=== PATIENT | female | born 1965 | race Caucasian/White ===

== ENCOUNTER 2023-11-12 14:34 | Outpatient (AMB) | payer OTHER, SELFPAY ==
--- NOTE | 2023-11-12 15:19 | A.OFFPC_ITS ---
Vital Signs 11/12/23 15:24 Height 5 ft 6.3 in Weight 200 lb 6 oz BMI 32.0 BP 108/60 Blood Pressure Location Lt brachial Position Sitting Respiration 12 Pulse 89 Pulse Source Pulse Oximeter Temp 98.1 F Temp Source Oral Pulse Oximetry (%) 91 L Oxygen Delivery Method Room Air Intake Visit Reasons: transfer from [facility] Intake Note: New patient visit Allergies rofecoxib [From Vioxx] Allergy (Unknown, Verified 11/12/23 15:20) Unknown eggs Allergy (Unknown, Uncoded 11/12/23 15:20) Unknown viox Allergy (Unknown, Uncoded 11/12/23 15:20) Unknown Tobacco use date assessed: 11/12/23 Dental Screening Dental Screen Date: 11/12/23 Did you have a dental visit in the last 12 months?: No Did you have a dental problem in the last 6 months where you did not have access to dental care?: No Was dental information given to patient?: Patient declined HPI HPI Comments History of Present Illness Details 58 y/o female with a past medical histor y of CAD s/p PCI, depression anxiety, obesity, htn, hyperlipidemia, chronic neck and back pain, DDD presenting for follow up CAD: stable on current medications. bp well controlled. no chest pain or exertional dyspnea. Continue weight loss with mounjaro. Depression/anxiety-stable with interval flares. Her job is a huge source of stress. Sometimes overwheming due for mammogram, colonoscopy ROS CONSTITUTIONAL: Denies weight loss, fever and chills. HEENT: Denies changes in vision and hearing. RESPIRATORY: Denies SOB and cough. CV: Denies palpitations and CP GI: Denies abdominal pain, nausea, vomiting and diarrhea. : Denies dysuria and urinary frequency. MSK: Denies new myalgia and joint pain. SKIN: Denies rash and pruritus. NEUROLOGICAL: Denies headache PSYCHIATRIC: Denies recent changes in mood. PHYSICAL EXAM: GENERAL: Alert and oriented x 3. NAD EYES: EOMI. Anicteric. HENT: Moist mucous membranes. No scleral icterus. No cervical lymphadenopathy. LUNGS: Clear to auscultation bilaterally. CARDIOVASCULAR: Regular rate and rhythm. No murmur. No JVD. ABDOMEN: Soft, non-tender +bs EXTREMITIES: No edema. Non-tender. SKIN: No rashes or lesions. Warm. NEUROLOGIC: No focal neurological deficits. CN II-XII grossly intact PSYCHIATRIC: Cooperative. Appropriate mood and affect [facility] Social History Housing: House Patient Tobacco Use Status: Current everyday Tobacco user Cigarette Packs Per Day: 0.5 Years Smoked: 40 e-Cigarette/Vaping Use: Never Used Second Hand Smoke Exposure: No service: Yes Current occupational status: employed Current occupation: [employer] Current occupational exposures/hazards: No Cognitive needs: No Hearing needs: No Vision needs: Yes (glasses) Questionnaire PHQ-9 Over the last 2 weeks, how often have you been bothered by any of the following problems? 1. Little interest or pleasure in doing things: not at all 2. Feeling down, depressed, or hopeless: several days 3. Trouble falling or staying asleep, or sleeping too much: several days 4. Feeling tired or having little energy: several days 5. Poor appetite or overeating: several days 6. Feeling bad about yourself - or that you are a failure or have let yourself or your family down: not at all 7. Trouble concentrating on things, such as reading the newspaper or watching television: not at all 8. Moving or speaking so slowly that other people could have noticed. Or the opposite - being so fidgety or restless that you have been moving around a lot more than usual: several days 9. Thoughts that you would be better off or of hurting yourself in some way: not at all Total score: 5 Depression Screening Interpretation: Positive Depression Screening Done: Yes 62929 - PHQ-9 Billing: Yes Source: Developed by Drs. Anant Murray, Jhoana Locke, Sanket Johnson and colleagues, with an educational jyotsna from [employer]. Thrive Questionnaire Date Thrive assessed: 11/12/23 I am a: Patient What is your living situation today?: I have a steady place to live Within the past 12 months, did the food you bought not last and you didn't have the money to get more?: Never true Within the past 12 months, did you worry whether your food would run out before you got money to buy more?: Never true Do you have trouble paying for medicines?: No Do you have trouble getting transportation to medical appointments?: No Do you have trouble paying your heating and electricity bill?: No Do you have trouble taking care of your child, family member or friend?: No Do you have trouble with day-to-day activities such as bathing, preparing meals, shopping, managing finances, etc.?: No Are you currently unemployed and looking for a job?: No Are you interested in more education?: No Please select the resources that you would like help with: None Currently or been in a relationship where the following occur: no concerns reported THRIVE Score: 0 AUDIT C Alcohol Use Questionnaire (AUDIT-C) 1. How often do you have a drink containing alcohol?: Never (hasnt drank in over 2 years) 3. How often do you have six or more drinks on one occasion?: Never Total Score: 0 LILIAN-7 AMB Questionnaire LILIAN-7 Date LILIAN - 7 assessed: 11/12/23 Feeling nervous, anxious, or on edge: 1 = Several days Not being able to stop or control worryin = Several days Worrying too much about different things: 1 = Several days Trouble relaxin = Several days Being so restless that it is hard to sit still: 1 = Several days Becoming easily annoyed or irritable: 1 = Several days Feeling afraid as if something awful might happen: 0 = Not at all Total LILIAN-7 score (0-4 normal; 5-9 mild; 10-14 moderate; 15-21 severe): 6 Source: Developed by Drs. Anant Murray, Jhoana Locke, Sanket Johnson and colleagues, with an educational jyotsna from [employer]. LILIAN-7 Assessment Billing LILIAN-7 Assessment Tool: LILIAN-7 Assessment 79729 Physical exam (Primary Care) Vital Signs: Last Vital Signs Temp 98.1 F 11/12/23 15:24 Pulse 89 11/12/23 15:24 Resp 12 11/12/23 15:24 BP 108/60 11/12/23 15:24 Pulse Ox 91 L 11/12/23 15:24 Oxygen Delivery Method Room Air 11/12/23 15:24 BMI result Body Mass Index 32.0 Tobacco/Smoking Status: Tobacco use Status Tobacco use date assessed 11/12/23 11/12/23 15:23 Patient Tobacco Use Status Current everyday Tobacco 11/12/23 15:23 e-Cigarette/Vaping Use Never Used 11/12/23 15:23 PHQ-9: PHQ-9 Score PHQ-9: Total score 5 11/12/23 16:13 Depression Screening Interpretation: Positive Thrive Assessment: Date of Thrive Assessment Date Thrive assessed 11/12/23 11/12/23 16:13 Currently or been in a relationship where the following occur: no concerns reported Assessment and Plan Assessment & Plan (1) CAD (coronary artery disease): Code(s): I25.10 - Atherosclerotic heart disease of nikolski coronary artery without angina pectoris Qualifiers: Coronary Disease-Associated Artery/Lesion type: [place] artery [place] vs. transplanted heart: n[place]ki heart Associated angina: without angina Qualified Code(s): I25.10 - Atherosclerotic heart disease of [place] coronary artery without angina pectoris Plan: stable. continue current medications. continue bp management, weight control (2) MDD (major depressive disorder), recurrent, in partial remission: Code(s): F33.41 - Major depressive disorder, recurrent, in partial remission Plan: stable recurrent. continue current medications (3) Obesity: Code(s): E66.9 - Obesity, unspecified Qualifiers: Obesity type: due to excess calories Obesity classification: adult class 1 (BMI 30 - 34.9) Serious obesity comorbidity presence: with serious comorbidity Body mass index: BMI 32.0-32.9 Qualified Code(s): E66.09 - Other obesity due to excess calories; Z68.32 - Body mass index [BMI] 32.0-32.9, adult (4) DDD (degenerative disc disease), lumbosacral: Code(s): M51.37 - Other intervertebral disc degeneration, lumbosacral region Orders: Orders MM screening mammo BI 11/12/23 Z12.31 - Encounter for screening mammogram for malignant neoplasm of breast Medications: New atorvastatin 40 mg PO DAILY 30 days 30 tabs 11RF loratadine 10 mg PO DAILY 30 tabs 11RF omeprazole 20 mg PO DAILY 30 caps 11RF amitriptyline 100 mg PO BEDTIME 30 tabs 11RF linaclotide (Linzess) 72 mcg PO QAM 30 caps 11RF losartan 25 mg PO DAILY 30 tabs 11RF amitriptyline 100 mg PO BEDTIME 30 tabs 0RF duloxetine 60 mg PO DAILY 30 days 30 caps 11RF amitriptyline 100 mg PO BEDTIME 30 tabs 0RF linaclotide (Linzess) 72 mcg PO QAM 30 caps 11RF atorvastatin 40 mg PO DAILY 30 tabs 11RF 30 days duloxetine 60 mg PO DAILY 30 caps 11RF 30 days metoprolol succinate ER 50 mg PO DAILY 30 tabs 11RF omeprazole 20 mg PO DAILY 30 caps 11RF tirzepatide (Mounjaro) 15 mg subcut QWEEK 4 mL 11RF 4 weeks Coding Level of Care Code Est Pt Level 5 (33692) Diagnoses Coronary artery disease involving nikolski coronary artery of n[place] heart without angina pectoris I25.10 Coronary Disease-Associated Artery/Lesion type: [place] artery [place] vs. transplanted heart: n[place]ki heart Associated angina: without angina MDD (major depressive disorder), recurrent, in partial remission F33.41 Class 1 obesity due to excess calories with serious comorbidity and body mass index (BMI) of 32.0 to 32.9 in adult E66.09; Z68.32 Obesity type: due to excess calories Obesity classification: adult class 1 (BMI 30 - 34.9) Serious obesity comorbidity presence: with serious comorbidity Body mass index: BMI 32.0-32.9 DDD (degenerative disc disease), lumbosacral M51.37 Additional Codes LILIAN-7 Assessment Billing - LILIAN-7 Assessment Tool: LILIAN-7 Assessment 46227 ([id number]) Time Spent (min) 52
[2023-11-12 15:24] VITALS: BP 108/60; PULSE 89; RESP 12; TEMP 36.7; O2SAT 91; BMI 32.0
== END 2023-11-12 16:12 | disposition home or self-care (01) ==
PROVIDERS: PCP Internal Medicine; Visit Provider Internal Medicine
DX: I25.10 Atherosclerotic heart disease of native coronary artery without angina pectoris (principal); F33.41 Major depressive disorder, recurrent, in partial remission; E66.09 Other obesity due to excess calories; Z68.32 Body mass index [BMI] 32.0-32.9, adult; M51.37 Other intervertebral disc degeneration, lumbosacral region
CPT/HCPCS: 99215

== ENCOUNTER 2023-12-24 10:50 | Outpatient (REF) | payer OTHER, SELFPAY ==
--- NOTE | ~2023-12-24 | CT_ITS ---
EXAMINATION: CT INNER EAR TEMPORAL BONES WITHOUT CONTRAST CLINICAL INFORMATION: Mastoiditis. COMPARISON: Brain MRI from 09/29/2019. TECHNIQUE: Multidetector helical imaging of the temporal bones was performed in the axial plane without contrast. Generation of oblique axial and coronal reformatted projections. This CT examination was performed using dose optimization techniques as appropriate, variously including the following: *Automated exposure control. *Adjustment of mA and/or kV according to patient size (this includes techniques or standardized protocols for targeted exams where dose is matched to indication/reason for exam; i.e. extremities or head). *Use of iterative reconstruction technique. DLP: 163 mGy-cm FINDINGS: Right Temporal Bone: Changes of canal wall up mastoidectomy. No periauricular soft tissue edema/collection. The external auditory canal is normal in appearance. The tympanic membrane is normal. The ossicular chain is intact. No soft tissue abnormality within the middle ear. The mastoid antrum and additional mastoid air cells remain well aerated. The sigmoid plate is intact. Normal ossification of the bony labyrinth. Normal appearance of the cochlea, vestibule, and semicircular canals. The vestibular aqueduct is normal. Normal appearance of the labyrinthine, geniculate, tympanic, and mastoid segments of the facial nerve. Normal appearance of the internal auditory canal. The cochlear aperture is normal. Normal appearance of the carotid canal and jugular foramen. Left Temporal Bone: No periauricular soft tissue edema/collection. The external auditory canal is normal in appearance. The tympanic membrane is normal. The ossicular chain is intact. No soft tissue abnormality within the middle ear. The mastoid antrum and additional mastoid air cells remain well aerated. The sigmoid plate is intact. Normal ossification of the bony labyrinth. Normal appearance of the cochlea, vestibule, and semicircular canals. The vestibular aqueduct is normal. Normal appearance of the labyrinthine, geniculate, tympanic, and mastoid segments of the facial nerve. Normal appearance of the internal auditory canal. The cochlear aperture is normal. Normal appearance of the carotid canal and jugular foramen. Other: Moderate degenerative arthropathy of the left temporomandibular joint. Mild degenerative arthropathy of the right temporal mandibular joint. No demonstrated intracranial abnormalities of the visualized skull base. No significant abnormalities of the visualized orbits. The visualized paranasal sinuses are clear. No abnormal contours of the visualized pharynx. CT/CT mastoid IMPRESSION: 1. Changes of right-sided canal wall up mastoidectomy. No periauricular soft tissue edema/collection. 2. No CT abnormalities of the left-sided temporal bone. 3. Moderate left-sided and mild right-sided temporomandibular joint arthropathy.
== END 2023-12-24 10:51 | disposition home or self-care (01) ==
LOC: HO.CT 10:50
PROVIDERS: PCP Internal Medicine; Visit Provider Internal Medicine
DX: H92.09 Otalgia, unspecified ear (principal); Z86.69 Personal history of other diseases of the nervous system and sense organs
CPT/HCPCS: 70481

== ENCOUNTER 2024-01-12 13:27 | Outpatient (REF) | payer OTHER, SELFPAY ==
--- NOTE | ~2024-01-12 | XR_ITS ---
EXAMINATION: XR SHOULDER, LEFT CLINICAL INFORMATION: Left shoulder pain. COMPARISON: None available. TECHNIQUE: Two views of the left shoulder. FINDINGS: Mild to moderate acromioclavicular osteoarthritis. Small glenoid osteophytes consistent with mild glenohumeral osteoarthritis. No fracture or malalignment on these images. Soft tissues are unremarkable. XR/XR shoulder LT min 2V IMPRESSION: Mild to moderate acromioclavicular and mild glenohumeral osteoarthritis. Electronically signed by: Jayden Martinez MD 02/05/2024 11:41 AM EDT
== END 2024-01-12 13:28 | disposition home or self-care (01) ==
LOC: HO.HOSX 13:27
PROVIDERS: Visit Provider Orthopaedic Surgery
DX: M25.512 Pain in left shoulder (principal)
CPT/HCPCS: 73030

== ENCOUNTER 2024-01-12 14:10 | Outpatient (AMB) | payer OTHER, SELFPAY ==
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
== END 2024-01-12 15:03 | disposition home or self-care (01) ==
PROVIDERS: PCP Internal Medicine; Visit Provider Orthopaedic Surgery
DX: M75.42 Impingement syndrome of left shoulder (principal)
CPT/HCPCS: 99203

== ENCOUNTER 2024-02-08 08:31 | Outpatient (AMB) | payer OTHER, SELFPAY ==
--- NOTE | 2024-02-08 08:44 | A.OFFPC_ITS ---
Vital Signs 02/08/24 08:46 Height 5 ft 6.5 in Weight 201 lb 6 oz BMI 32.0 BP 104/50 L Blood Pressure Location Rt brachial Position Sitting Respiration 12 Pulse 86 Pulse Source Pulse Oximeter Pulse Oximetry (%) 100 Oxygen Delivery Method Room Air Intake Visit Reasons: F/U Intake Note: Patient is here today for a follow up appointment. Patient reports she has not smoked a cigarette since 01/04/24. 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 Accompanied by: Self / Same As Patient Allergies rofecoxib [From Vioxx] Allergy (Unknown, Verified 02/08/24 08:51) Unknown eggs Allergy (Unknown, Uncoded 02/08/24 08:51) Unknown viox Allergy (Unknown, Uncoded 02/08/24 08:51) Unknown Medication List - Last Reconciled 02/08/24 by Tami Srivastava MD amitriptyline 100 mg PO BEDTIME amitriptyline 100 mg PO BEDTIME aspirin 81 mg PO DAILY atorvastatin 40 mg PO DAILY 30 days cholecalciferol (vitamin D3) 125 mcg PO DAILY duloxetine 60 mg PO DAILY 30 days loratadine 10 mg PO DAILY losartan 25 mg PO DAILY metoprolol succinate ER 50 mg PO DAILY omeprazole 20 mg PO DAILY prednisone 40 mg (2 x 20 mg) PO DAILY tirzepatide (Mounjaro) 15 mg subcut QWEEK 4 weeks Tobacco use date assessed: 11/12/23 Dental Screening Dental Screen Date: 11/12/23 HPI HPI Comments History of Present Illness Details 59 year female with a past medical histo ry of CAD s/p PCI, depression anxiety, obesity, hypertension, hyperlipidemia, chronic neck and back pain, DDD presenting for follow up CAD: stable on current medications. Blood pressure well controlled. no chest pain or exertional dyspnea. successful weight loss with mounjaro. Depression/anxiety-stable with interval flares. Her job is a huge source of stress. Sometimes overwhelming She continues to have right ear pain, scalp pain radiation down mastoid into neck and into lower scalp and neck. CT mastoid without evidence of recurring mastoiditis. She saw ENT. Hearing testing. Worsens when she wears her headset for work. Her hearing feels affected. She does have chronic neck pain, known DDD. Xrays remotely January 03 stopped smoking cigarettes. Is vaping once awhile. Trying to find nicotine free. Due for mammogram, colonoscopy. She is committed to scheduling both ROS CONSTITUTIONAL: Denies weight loss, fever and chills. HEENT: Denies changes in vision and hearing. RESPIRATORY: Denies SOB and cough. CV: Denies palpitations and CP GI: Denies abdominal pain, nausea, vomiting and diarrhea. : Denies dysuria and urinary frequency. MSK: see HPI SKIN: Denies rash and pruritus. NEUROLOGICAL: see HPI PSYCHIATRIC: Denies recent changes in mood. PHYSICAL EXAM: GENERAL: Alert and oriented x 3. NAD EYES: EOMI. Anicteric. HENT: Moist mucous membranes. No scleral icterus. No cervical lymphadenopathy. LUNGS: Clear to auscultation bilaterally. CARDIOVASCULAR: Regular rate and rhythm. No murmur. No JVD. ABDOMEN: Soft, non-tender +bs EXTREMITIES: No edema. Non-tender. SKIN: No rashes or lesions. Warm. NEUROLOGIC: No focal neurological deficits. CN II-XII grossly intact PSYCHIATRIC: Cooperative. Appropriate mood and affect [facility] Social History Housing: House Patient Tobacco Use Status: Current everyday Tobacco user Cigarette Packs Per Day: 0.5 Years Smoked: 40 Packs Per Year: 20 e-Cigarette/Vaping Use: Never Used Second Hand Smoke Exposure: No service: Yes Current occupational status: employed 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 Current occupational exposures/hazards: No Cognitive needs: No Hearing needs: No Vision needs: Yes (glasses) Questionnaire PHQ-9 Over the last 2 weeks, how often have you been bothered by any of the following problems? 1. Little interest or pleasure in doing things: not at all 2. Feeling down, depressed, or hopeless: several days 3. Trouble falling or staying asleep, or sleeping too much: nearly every day 4. Feeling tired or having little energy: more than half the days 5. Poor appetite or overeating: several days 6. Feeling bad about yourself - or that you are a failure or have let yourself or your family down: not at all 7. Trouble concentrating on things, such as reading the newspaper or watching television: several days 8. Moving or speaking so slowly that other people could have noticed. Or the opposite - being so fidgety or restless that you have been moving around a lot more than usual: several days 9. Thoughts that you would be better off or of hurting yourself in some way: not at all Total score: 9 Depression Screening Interpretation: Positive Depression Screening Follow-up: Existing condition Depression Screening Done: Yes 47506 - PHQ-9 Billing: Yes Source: Developed by Drs. Anant Murray, Jhoana Locke, Sanket Johnson and colleagues, with an educational jyotsna from [employer]. Thrive Questionnaire Date Thrive assessed: 11/12/23 I am a: Patient What is your living situation today?: I have a steady place to live Within the past 12 months, did the food you bought not last and you didn't have the money to get more?: Never true Within the past 12 months, did you worry whether your food would run out before you got money to buy more?: Never true Do you have trouble paying for medicines?: No Do you have trouble getting transportation to medical appointments?: No Do you have trouble paying your heating and electricity bill?: No Do you have trouble taking care of your child, family member or friend?: No Do you have trouble with day-to-day activities such as bathing, preparing meals, shopping, managing finances, etc.?: No Are you currently unemployed and looking for a job?: No Are you interested in more education?: No Please select the resources that you would like help with: None Currently or been in a relationship where the following occur: No concerns reported THRIVE Score: 0 AUDIT C Alcohol Use Questionnaire (AUDIT-C) 1. How often do you have a drink containing alcohol?: Never Total Score: 0 LILIAN-7 AMB Questionnaire LILIAN-7 Date LILIAN - 7 assessed: 11/12/23 Feeling nervous, anxious, or on edge: 1 = Several days Not being able to stop or control worryin = Several days Worrying too much about different things: 1 = Several days Trouble relaxin = Several days Being so restless that it is hard to sit still: 1 = Several days Becoming easily annoyed or irritable: 1 = Several days Feeling afraid as if something awful might happen: 0 = Not at all Total LILIAN-7 score (0-4 normal; 5-9 mild; 10-14 moderate; 15-21 severe): 6 Source: Developed by Drs. Anant Murray, Jhoana Locke, Sanket Johnson and colleagues, with an educational jyotsna from [employer]. Physical exam (Primary Care) Vital Signs: Last Vital Signs Pulse 86 02/08/24 08:46 Resp 12 02/08/24 08:46 BP 104/50 L 02/08/24 08:46 Pulse Ox 100 02/08/24 08:46 Oxygen Delivery Method Room Air 02/08/24 08:46 BMI result Body Mass Index 32.0 Tobacco/Smoking Status: Tobacco use Status Tobacco use date assessed 11/12/23 02/08/24 08:45 Patient Tobacco Use Status Current everyday Tobacco 02/08/24 08:45 e-Cigarette/Vaping Use Never Used 02/08/24 08:45 PHQ-9: PHQ-9 Score PHQ-9: Total score 9 02/08/24 09:08 Depression Screening Interpretation: Positive Depression Screening Follow-up: Existing condition Thrive Assessment: Date of Thrive Assessment Date Thrive assessed 11/12/23 02/08/24 08:45 Currently or been in a relationship where the following occur: No concerns reported Assessment and Plan Assessment & Plan (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 MRA ordered. MR neck ordered (2) Cervical neuralgia: Code(s): M54.12 - Radiculopathy, cervical region Plan: xray ordered. Would like to get MRI cervical spine with MRA as persistent intermittent debilitating pain (3) Mastoid pain: Code(s): H92.09 - Otalgia, unspecified ear Qualifiers: Laterality: right Qualified Code(s): H92.01 - Otalgia, right ear (4) History of mastoiditis: Code(s): Z86.69 - Personal history of other diseases of the nervous system and sense or rneetta (5) MDD (major depressive disorder), recurrent, in partial remission: Code(s): F33.41 - Major depressive disorder, recurrent, in partial remission Plan: stable on current medications Orders: Orders Lipid Panel Today G89.29 - Other chronic pain, H92.01 - Otalgia, right ear, H92.09 - Otalgia, unspecified ear, M79.2 - Neuralgia and neuritis, unspecified, S04.30XA - Injury of trigeminal nerve, unspecified side, initial encounter MR angio head wo/w con Today G89.29 - Other chronic pain, H92.01 - Otalgia, right ear, H92.09 - Otalgia, unspecified ear, M79.2 - Neuralgia and neuritis, unspecified Complete Blood Count Auto Diff Today G89.29 - Other chronic pain, H92.01 - Otalgia, right ear, H92.09 - Otalgia, unspecified ear, M79.2 - Neuralgia and neuritis, unspecified, S04.30XA - Injury of trigeminal nerve, unspecified side, initial encounter Comprehensive Met. Panel Today G89.29 - Other chronic pain, H92.01 - Otalgia, right ear, H92.09 - Otalgia, unspecified ear, M79.2 - Neuralgia and neuritis, unspecified, S04.30XA - Injury of trigeminal nerve, unspecified side, initial encounter Hemoglobin A1c Today G89.29 - Other chronic pain, H92.01 - Otalgia, right ear, H92.09 - Otalgia, unspecified ear, M79.2 - Neuralgia and neuritis, unspecified, S04.30XA - Injury of trigeminal nerve, unspecified side, initial encounter MR cervical spine wo con Today M54.12 - Radiculopathy, cervical region XR cervical spine 2V Today M54.12 - Radiculopathy, cervical region, M79.2 - Neuralgia and neuritis, unspecified XR cervical spine 5V Today M54.12 - Radiculopathy, cervical region, M79.2 - Neuralgia and neuritis, unspecified XR cervical spine 4V Today M54.12 - Radiculopathy, cervical region, M79.2 - Neuralgia and neuritis, unspecified Coding Level of Care Code Est Pt Level 5 (29228) Diagnoses Injury of right trigeminal nerve, sequela S04.31XS Encounter type: sequela Laterality: right Cervical neuralgia M54.12 Pain of right mastoid H92.01 Laterality: right History of mastoiditis Z86.69 MDD (major depressive disorder), recurrent, in partial remission F33.41 Time Spent (min) 48
[2024-02-08 08:46] VITALS: BP 104/50; PULSE 86; RESP 12; O2SAT 100; BMI 32.0
== END 2024-02-08 13:43 | disposition home or self-care (01) ==
PROVIDERS: PCP Internal Medicine; Visit Provider Internal Medicine
DX: S04.31 Injury of trigeminal nerve, right side (principal); M54.12 Radiculopathy, cervical region; H92.01 Otalgia, right ear; Z86.69 Personal history of other diseases of the nervous system and sense organs; F33.41 Major depressive disorder, recurrent, in partial remission
CPT/HCPCS: 99215

== ENCOUNTER → 2024-02-08 08:31 | Outpatient (BNVA) | payer OTHER, SELFPAY | PROVIDERS: PCP Internal Medicine; Visit Provider Internal Medicine ==

== ENCOUNTER → 2024-02-29 16:50 | Outpatient (BNV) | payer OTHER, SELFPAY | PROVIDERS: PCP Internal Medicine; Visit Provider Radiology Diagnostic Radiology | DX: M47.812 Spondylosis without myelopathy or radiculopathy, cervical region (principal) | CPT/HCPCS: 72141 ==

== ENCOUNTER 2024-02-29 16:51 | Outpatient (REF) | payer OTHER, SELFPAY ==
--- NOTE | ~2024-02-29 | MR_ITS ---
EXAMINATION: MR CERVICAL SPINE WITHOUT CONTRAST CLINICAL INFORMATION: Headaches, vertigo, neck pain. COMPARISON: None available. TECHNIQUE: Multiplanar multisequence MR imaging of the cervical spine was done prior to and without the administration IV gadolinium. Examination was performed on a 1.5 Khushboo Siemens unit, using standard sequences. 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 FINDINGS: CORONAL ALIGNMENT: -Trace levoconvex scoliosis centered at C5. SAGITTAL ALIGNMENT: -Normal lordosis. -No subluxations of significance. CRANIOCERVICAL JUNCTION/C1-2 ARTICULATIONS: -Intact and aligned. -Mild degenerative arthritis. VERTEBRAL BODIES/BONE MARROW: -No compression deformity or bone marrow edema present. -No infiltrating abnormal bone marrow signal. DISCS: -Mild diffuse loss of disc signal. -Mild loss of disc height present C5-6, C6-7 and C7-T1. CERVICAL CORD: -Normal in signal and caliber throughout. There are no regions of cord impingement or myelomalacia identified. PARAVERTEBRAL SOFT TISSUES: -No abnormalities seen. Thyroid is obscured by a saturation band. VISUALIZED INTRACRANIAL STRUCTURES: -Patchy T2 signal hyperintensity in the central ry, nonspecific. This may be secondary to small vessel ischemic change. AXIAL DISC SPACE IMAGING: C2-C3: No central canal or neural foraminal narrowing. C3-C4: Small right lateral disc protrusion without significant mass effect. No central canal narrowing. Mild right neural foraminal narrowing. C4-C5: No significant disc pathology. Mild bilateral uncinate spurring right greater than left. Normal facets. No central canal narrowing. Mild bilateral neural foraminal narrowing. C5-C6: Somewhat irregular bulging disc present, most prominent left lateral region, where there is contact but no flattening of the left aspect of the cord. This results in mild central stenosis and mild left lateral recess stenosis. There is preserved CSF surrounding the cord. There is no cord impingement. Relatively significant right greater than left uncinate spurring present, with mild right greater than left facet spurring, contributing to severe right and moderate to severe left neural foraminal narrowing. C6-C7: No bulging disc with annular fissuring at this level, minimally indenting upon the ventral thecal sac but not contacting the cord. Minimal central canal narrowing. Mild bilateral uncinate spurring left greater than right. Mild right greater than left facet spurring. There is mild to moderate left neural foraminal narrowing. Right neural foramen is patent. C7-T1: Central disc extrusion present, indenting upon the ventral thecal sac, approaching but not definitively contacting the ventral cord (series 8, image 28). This results in mild central canal stenosis. There is preserved CSF signal surrounding the cord. Neural foramen are patent bilaterally without narrowing. T1-T2: There is a central and right far lateral disc extrusion present, only seen in the sagittal plane. This indents upon the ventral thecal sac, but does not contact the cord. There is mild central canal stenosis and mild right lateral recess stenosis. Neural foramen are patent bilaterally. MR/MR cervical spine wo con IMPRESSION: 1. Mild spondylosis of the cervical spine without evidence of significant central canal narrowing or cord impingement. No cord signal abnormality. 2. Mild disc degeneration with bulges/herniations at C5-6, C6-7, and C7-T1, and T1-T2 as detailed. 3. Severe right neural foraminal stenosis C5-6, and moderate left. 4. Mild to moderate left neural foraminal narrowing at C6-7. 5. Patchy central pontine T2 signal hyperintensity, nonspecific and most likely on the basis of small vessel ischemic changes. Refer to the dedicated brain MRI. 6. Additional ancillary findings as discussed. Electronically signed by: Jayden Méndez MD 05/02/2024 08:51 AM EST TARA
== END 2024-02-29 16:52 | disposition home or self-care (01) ==
LOC: HO.MRI 16:51
PROVIDERS: PCP Internal Medicine; Visit Provider Internal Medicine
DX: M54.12 Radiculopathy, cervical region (principal)
CPT/HCPCS: 72141

== ENCOUNTER → 2024-03-25 15:12 | Outpatient (BNV) | payer OTHER, SELFPAY | PROVIDERS: PCP Internal Medicine; Visit Provider Radiology Diagnostic Radiology | DX: S04.31 Injury of trigeminal nerve, right side (principal) | CPT/HCPCS: 70546; 70553 ==

== ENCOUNTER 2024-03-25 15:14 | Outpatient (REF) | payer OTHER, SELFPAY ==
--- NOTE | ~2024-03-25 | MR_ITS ---
EXAMINATION: MR ANGIOGRAPHY BRAIN WITHOUT AND WITH CONTRAST CLINICAL INFORMATION: Headache. Vertigo. COMPARISON: None available. TECHNIQUE: IV contrast enhanced 3-D [id number]. Maximum intensity projections [place]-cree of [place]. Total of 20 cc of gadolinium given IV without reported immediate complications FINDINGS: Anterior cerebral circulation: ICAs: Petrous, cavernous and supraclinoid segments demonstrated no focal stenosis or abrupt cut off. MCA's: No focal stenosis or abrupt cut off. Bifurcation/trifurcation demonstrated no signal abnormality. ACAs: No focal stenosis or abrupt cut off. Anterior communicating artery is patent. The ophthalmic arteries are patent with poor visualization of the origin due to patient's motion. Left posterior communicating artery is patent with small caliber. Posterior cerebral circulation: V3/V4 segments demonstrated no focal stenosis or intimal flap. Contour irregularity likely related to atherosclerosis. Right vertebral artery slightly dominant. Posterior inferior cerebellar arteries and anterior inferior cerebellar arteries are patent with a loop in the portions posticus. Superior cerebellar arteries are patent. machinist: No focal stenosis or abrupt cut off. No luminal filling defects within the main cerebral venous sinuses. MR/MR angio head wo/w con IMPRESSION: No main cerebral artery occlusion or embolus. No main cerebral venous thrombosis.. Electronically signed by: Seth Vyas MD 03/27/2024 01:17 PM EST
--- NOTE | ~2024-03-25 | MR_ITS ---
EXAMINATION: MR BRAIN IAC PROTOCOL WITHOUT AND WITH CONTRAST CLINICAL INFORMATION: Injury of trigeminal nerve, right-sided, sequela. COMPARISON: None available. Correlated to CT temporal bones dated December 24, 2023. TECHNIQUE: Multiplanar, multisequence MRI of the brain and IAC protocol was obtained before and after the intravenous administration of 10 mL gadolinium without reported immediate complications. FINDINGS: No signal abnormality or enhancing lesion within the cochlea or vestibular components either 8th cranial nerves. No signal abnormality or enhancing lesion at the cerebellopontine angle cisterns no or course conspicuous. Normal enhancement pattern within the labyrinthine, geniculate ganglia, tympanic and mastoid segments of the facial nerves. No flow void signal abnormality within the vessels of the posterior cranial fossa. The anterior inferior cerebral arteries demonstrated a loop near the porus acusticus. The cisternal segments and anterior zones of the trigeminal nerves demonstrated no signal abnormality or enhancing mass. Meckel's caves demonstrated no signal abnormality or enhancing lesion. No abnormal enhancement at the V2 or V3 divisions of the trigeminal nerves. No signal abnormality or enhancing lesion at the sellar/suprasellar region. No enhancing mass at the brain stem. Hyperintense T2 FLAIR signal within the mid ry. No restricted diffusion. No acute intracranial hemorrhage, mass effect, midline shift, hydrocephalus or herniation. Flow-void signal within the main cerebral vessels is normal. Robles-white matter differentiation is normal. No enhancing lesion within the intraconal or extraconal compartments of the cranium. Bilateral, scattered, nonspecific hyperintense T2 FLAIR signal foci in the deep white matter, supratentorial compartment. MR/MR head/brain wo/w con IMPRESSION: No enhancing mass. No acute brain abnormality. Nonspecific hyperintense T2 FLAIR signal deep white matter supratentorial compartment. Hyperintense T2 FLAIR signal, mid ry likely related to small vessel occlusive disease. Electronically signed by: Seth Vyas MD 03/27/2024 01:11 PM AMBER
[2024-03-25] MEDS: gadobutroL 10 ML VIAL IVPUSH (16:52)
== END 2024-03-25 15:15 | disposition home or self-care (01) ==
LOC: HO.MRI 15:14
PROVIDERS: PCP Internal Medicine; Visit Provider Internal Medicine
DX: S04.31 Injury of trigeminal nerve, right side (principal); M54.12 Radiculopathy, cervical region; G89.29 Other chronic pain; H92.03 Otalgia, bilateral; Z86.69 Personal history of other diseases of the nervous system and sense organs; M51.379 Other intervertebral disc degeneration, lumbosacral region without mention of lumbar back pain or lower extremity pain
CPT/HCPCS: 70546; 70553; A9585

== ENCOUNTER 2024-05-18 08:25 | Outpatient (REF) | payer OTHER, SELFPAY ==
--- NOTE | ~2024-05-18 | US_ITS ---
EXAMINATION: US RETROPERITONEAL LIMITED (AORTA) CLINICAL INFORMATION: Abdominal aortic aneurysm. COMPARISON: None available. TECHNIQUE: Robles-scale, color Doppler and spectral Doppler evaluation of the abdominal aorta. FINDINGS: Infrarenal abdominal aorta is aneurysmal measuring 3.6 x 3.8 cm with eccentric atherosclerotic plaque versus thrombus. Largest luminal size in this region measures 2.4 x 2.8 cm. The measurements of the aorta in maximum AP and transverse dimensions respectively are as follows: Proximal: 2.3 x 2.1 cm. Mid: 2.1 x 2.2 cm. Distal: 2.9 x 2.7 cm. The measurements of the common iliac arteries in maximum dimensions are as follows: Right: AP: 1.3 cm. TRV: 1.1 cm. Left: AP: 1.6 cm. TRV: 1.3 cm. US/US abdominal aortic aneurysm IMPRESSION: Infrarenal abdominal aortic aneurysm measuring 3.6 x 3.8 cm with eccentric plaque versus thrombus. Electronically signed by: Jluis Bush DO 05/18/2024 08:59 AM EST
== END 2024-05-18 08:26 | disposition home or self-care (01) ==
LOC: HO.HMGCX 08:25
PROVIDERS: PCP Internal Medicine; Visit Provider Internal Medicine
DX: Z01.810 Encounter for preprocedural cardiovascular examination (principal); I71.40 Abdominal aortic aneurysm, without rupture, unspecified
CPT/HCPCS: 76706

== ENCOUNTER 2024-05-18 09:09 | Outpatient (AMB) | payer OTHER, SELFPAY ==
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
[2024-05-18 09:17] VITALS: BMI 32.0
== END 2024-05-18 09:34 | disposition home or self-care (01) ==
LOC: HO.HOS 09:09
PROVIDERS: PCP Internal Medicine; Visit Provider Orthopaedic Surgery
DX: M75.42 Impingement syndrome of left shoulder (principal)
CPT/HCPCS: 99213

== ENCOUNTER 2024-05-26 05:51 | Day surgery (SDC) | payer OTHER, SELFPAY ==
[2024-05-10 09:53] VITALS: BMI 32.0
[2024-05-19 15:28] LABS: Hematocrit 37.9 % (37.0-47.0); Hemoglobin 12.5 g/dl (12.0-16.0); Mean Corpuscular Hemoglobin 29.2 pg (27.0-33.0); Mean Corpuscular Volume 88.6 fL (80.0-98.0); Mean Platelet Volume 9.1 fL (9.4-12.3); Platelet Count 221 X10*3/uL (160-400); Red Blood Count 4.28 X10*6/uL (4.20-5.50); Red Cell Distribution Width 13.1 % (11.0-16.0); White Blood Count 5.8 X10*3/uL (4.8-10.8)
[2024-05-19 16:32] LABS: Anion Gap 9 (12-20); Blood Urea Nitrogen 13 mg/dL (9-16); Calcium 8.8 mg/dL (8.4-10.2); Carbon Dioxide 27 mmol/L (22-29); Chloride 103 mmol/L (96-108); Estimated Glomerular Filt Rate > 60; Glucose Random 97 mg/dL (60-115); Potassium 4.3 mmol/L (3.3-5.1); Sodium 135 mmol/L (135-145)
--- NOTE | 2024-05-23 10:39 | P.CONAN_ITS ---
Documented by User: Nanda Izaguirre NP 05/23/24 10:51 HPI - Anesthesia Eval Consult details Narrative: 59yo F for Left Shoulder Arthroscopy distal clavicle excision,acromioplasty,possible Rotator Cuff repair Stable at 01/2024 PCP visit Follows [facility] for CAD s/p STEMI 2017 with JULIA. 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) Neuritis (Acute) Chronic right ear pain (Acute) Impingement syndrome of left shoulder (Acute) Left shoulder pain (Acute) Mastoid pain (Acute) History of mastoiditis (Acute) DDD (degenerative disc disease), lumbosacral (Acute) Obesity (Acute) Hypertension (Acute) MDD (major depressive disorder), recurrent, in partial remission (Acute) CAD (coronary artery disease) (Acute) Past Medical History Medical History Back pain GERD (gastroesophageal reflux disease) Diabetes Hx of myocardial infarction (2017) PJ (obstructive sleep apnea) Headache History of trigger finger Osteoarthritis DDD (degenerative disc disease), lumbar Depression Anxiety PTSD (post-traumatic stress disorder) Seasonal allergies Hypercholesteremia Hypertension Abdominal aortic aneurysm Myocardial infarction Surgical History Surgical History Hx of colonoscopy H/O cardiac catheterization History of carpal tunnel release Hx of heart artery stent (02/2017) Hx of repair of rotator cuff Hx of mastoidectomy (12/2019) Hx of cholecystectomy (~1996) History of (11/1995) Social History Social History Household Members: Other Household Members Other:: adult daughter Housing: House Are you a primary school child care attendant to a significant other at home: No Do you presently have visiting nurse or other home services: No Patient Tobacco Use Status: Former Tobacco user Tobacco use type: Cigarette Cigarette Packs Per Day: 0.5 Years Smoked: 40 Smoked in Last 30 Days: No e-Cigarette/Vaping Use: Never Used Second Hand Smoke Exposure: No Use of substances other than those prescribed or required for medical reasons: No Have you been hit, kicked, punched, or otherwise hurt by someone within the past year? If so, by whom?: No Are you DNR?: No Advance Directives: No Advance Directives Information Provided: Yes Advance Directives on File: No Recently lost weight without trying: No Nutrition Risks: No Nutritional Risk service: Yes Current occupational status: employed Current occupation: [employer] Current occupational exposures/hazards: No Cognitive needs: No Hearing needs: No Vision needs: Yes (glasses) Meds Allergies Allergy/AdvReac Type Severity Reaction Status Date / Time rofecoxib [From Vioxx] Allergy Mild Rash Verified 05/26/24 06:22 eggs Allergy Intermediate Gastrointestinal Uncoded 05/18/24 09:16 Upset Active Medications: Current Medications Cefazolin Sodium/Dextrose (Ancef) 2 gm in 50 mls @ 100 mls/hr IV PREOP ONE Stop: 05/26/24 06:10 Home Medications ?Medication ?Instructions ?Recorded ?Confirmed ?Last Taken ?Type aspirin 81 mg tablet,delayed 81 mg PO DAILY 11/12/23 05/18/24 Unknown History release cholecalciferol (vitamin D3) 125 125 mcg PO DAILY 11/12/23 05/18/24 Unknown History mcg (5,000 unit) capsule albuterol sulfate 90 mcg/actuation 2 puff inhalation Q4-6H PRN 05/10/24 05/18/24 Unknown History aerosol inhaler Shortness Of Breath Or Wheezing atorvastatin 40 mg tablet 40 mg PO BEDTIME 05/10/24 05/18/24 Unknown History loratadine 10 mg tablet 10 mg PO BEDTIME 05/10/24 05/18/24 Unknown History omeprazole 20 mg capsule,delayed 20 mg PO BEDTIME 05/10/24 05/18/24 Unknown History release tirzepatide 7.5 mg/0.5 mL 15 mg subcut .QTUESDAY 05/10/24 05/18/24 05/23/24 History subcutaneous pen injector (Mayra) Exam Height,Weight and Vital Signs: Height 5 ft 6.5 in Weight 91.342 kg Pertinent Lab Results Pertinent Lab Results: Laboratory Tests 05/19/24 15:15 WBC 5.8 RBC 4.28 Hgb 12.5 Hct 37.9 MCV 88.6 MCH 29.2 MCHC 33.0 RDW 13.1 Plt Count 221 MPV 9.1 L Absolute Nucleated RBC 0.000 Nucleated RBC % (auto) 0.0 Sodium 135 Potassium 4.3 Chloride 103 Carbon Dioxide 27 Anion Gap 9 L BUN 13 Creatinine 0.84 Estim Creat Clear Calc 83.0 Estimated GFR > 60 Random Glucose 97 Calcium 8.8 Narrative Narrative: EKG 10/2023 NSR @ 95 US abdominal aortic aneurysm 04/2024 IMPRESSION: Infrarenal abdominal aortic aneurysm measuring 3.6 x 3.8 cm with eccentric plaque versus thrombus. ECHO 2016 Nml LV cavity size with mildly increased wall thickness, nml LV sys function with EF 65-70%, mild MR, nml RV size and function Documented by User: Zoe Cordova MD 05/26/24 08:05 PMFSH Past Medical History Medical History Back pain GERD (gastroesophageal reflux disease) Diabetes Hx of myocardial infarction (2016) PJ (obstructive sleep apnea) Headache History of trigger finger Osteoarthritis DDD (degenerative disc disease), lumbar Depression Anxiety PTSD (post-traumatic stress disorder) Seasonal allergies Hypercholesteremia Hypertension Abdominal aortic aneurysm Myocardial infarction Family History Family history of problems with anesthesia: No Surgical History Surgical History Hx of colonoscopy H/O cardiac catheterization History of carpal tunnel release Hx of heart artery stent (02/2017) Hx of repair of rotator cuff Hx of mastoidectomy (12/2019) Hx of cholecystectomy (~1996) History of (11/1995) History of Problems with Anesthesia: No Social History Social History Household Members: Other Household Members Other:: adult daughter Housing: House Are you a primary school child care attendant to a significant other at home: No Do you presently have visiting nurse or other home services: No Patient Tobacco Use Status: Former Tobacco user Tobacco use type: Cigarette Cigarette Packs Per Day: 0.5 Years Smoked: 40 Smoked in Last 30 Days: No e-Cigarette/Vaping Use: Never Used Second Hand Smoke Exposure: No Use of substances other than those prescribed or required for medical reasons: No Have you been hit, kicked, punched, or otherwise hurt by someone within the past year? If so, by whom?: No Are you DNR?: No Advance Directives: No Advance Directives Information Provided: Yes Advance Directives on File: No Recently lost weight without trying: No Nutrition Risks: No Nutritional Risk service: Yes Current occupational status: employed 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 Current occupational exposures/hazards: No Cognitive needs: No Hearing needs: No Vision needs: Yes (glasses) Meds Allergies Allergy/AdvReac Type Severity Reaction Status Date / Time rofecoxib [From Vioxx] Allergy Mild Rash Verified 05/26/24 06:22 eggs Allergy Intermediate Gastrointestinal Uncoded 05/18/24 09:16 Upset Home Medications ?Medication ?Instructions ?Recorded ?Confirmed ?Last Taken ?Type aspirin 81 mg tablet,delayed 81 mg PO DAILY 11/12/23 05/18/24 Unknown History release cholecalciferol (vitamin D3) 125 125 mcg PO DAILY 11/12/23 05/18/24 Unknown History mcg (5,000 unit) capsule albuterol sulfate 90 mcg/actuation 2 puff inhalation Q4-6H PRN 05/10/24 05/18/24 Unknown History aerosol inhaler Shortness Of Breath Or Wheezing atorvastatin 40 mg tablet 40 mg PO BEDTIME 05/10/24 05/18/24 Unknown History loratadine 10 mg tablet 10 mg PO BEDTIME 05/10/24 05/18/24 Unknown History omeprazole 20 mg capsule,delayed 20 mg PO BEDTIME 05/10/24 05/18/24 Unknown History release tirzepatide 7.5 mg/0.5 mL 15 mg subcut .QTUESDAY 05/10/24 05/18/24 05/23/24 History subcutaneous pen injector (Ruelunrobero) Exam Airway Mallampati Class: II TM Dist: >3cm Neck ROM: Full Heart: rrr Lungs: cta Assessment and Plan Assessment Anesthesia Assessment: Anesthesia Plan Discussed Final Anesthetic Review Family History of Problems with Anesthesia: No History of Problems with Anesthesia: No NPO: Yes ASA Class: III Final Preanesthetic Review: No Changes in Pt Med Stat, Meds/Allgs Chart Reviewed, Consent Obtained/Reviewed and Anes Risks/Benef Reviewed Patient Risk: Intermediate Procedure Risk: Intermediate Anesthetic Plan Anesthetic Plan: GA and Regional Block Disposition: Standard PACU
[2024-05-26] VITALS (7 sets, daily range): BP systolic 84–132; BP diastolic 44–81; PULSE 76–99; RESP 12–16; TEMP 36.1–36.6; O2SAT 99–100
[2024-05-26 06:51] LABS: Glucose, Whole Blood 93 mg/dL (60-115)
[2024-05-26] MEDS: Lactated Ringers 1,000 ML 100 ML IVCONT (06:58)
--- NOTE | 2024-05-26 09:17 | PM.OP ---
Brief Operative Note Date of Service: 05/26/24 Pre-op diagnosis: Left shoulder impingement syndrome, left shoulder acromioclavicular joint arthritis, left shoulder adhesive capsulitis Post-op diagnosis: same Procedure: Left shoulder diagnostic arthroscopy with left shoulder arthroscopic distal clavicle excision, left shoulder arthroscopic acromioplasty, left shoulder arthroscopic anterior capsular release, left shoulder manipulation under anesthesia Implants: none Surgeon: Negro Gunn MD Anesthesia: GETA and regional Was an Psychiatric Nursing Assistant used for this Procedure?: No Estimated blood loss (mL): 10 Pathology: none sent Condition: stable Disposition: PACU
--- NOTE | 2024-05-26 09:18 | P.OP_ITS ---
Operative Note Operative Note Date of Service: 05/26/24 Narrative: After the patient was identified as Elin Villa and her left shoulder was initialed by myself the patient was brought to the holding area where a left shoulder interscalene regional block was performed by the anesthesiologist in routine fashion. The patient was then brought to the operating room where general anesthesia was induced by the anesthesiologist in routine fashion. The patient was given 2 g of IV Ancef preoperatively for infection prophylaxis. Examination under anesthesia of the patient's left shoulder showed decreased range of motion when compared to the right shoulder. The patient's left shoulder had forward flexion to 130 degrees compared to 170 degrees, external rotation to 40 degrees compared to 60 degrees, and internal rotation to 50 degrees compared to 60 degrees. The patient was gently positioned in the beach chair position with all bony prominences well padded. The patient's left shoulder region and upper extremity were prepped and draped in sterile fashion. A formal time-out was completed. A #11 scalpel blade was used to make a posterior portal 2 cm inferior and 1 cm medial to the posterolateral corner of the acromion. Blunt trocar technique was used to enter the glenohumeral joint in routine fashion. An anterior portal was made just lateral to the coracoid process after proper positioning was confirmed using a spinal needle. Diagnostic arthroscopy showed minimal degenerative changes of the glenoid and humeral head articular surfaces. There was no evidence of rotator cuff tearing. There was no evidence of injury to the biceps tendon or its insertion onto the glenoid. There was inflammation of the anterior joint capsule consistent with adhesive capsulitis. The ArthroCare Wand was then used to perform an anterior capsular release between the inferior border of the biceps tendon and the superior border of the subscapularis tendon. The arthroscope was then placed from the posterior portal into the subacromial space. A lateral portal was made 2 fingerbreadths lateral to the anterior lateral corner of the acromion. The ArthroCare Wand was used to ablate soft tissues along the undersurface of the acromion as well as to excise the coracoa cromial ligament. There was a sharp spur along the undersurface of the acromion which was removed using the hooded bur. The arthroscope was then placed into the lateral portal and the acromioplasty was completed with the bur in the posterior portal using the posterior aspect of the acromion as a cutting block. The ArthroCare Wand was then brought in through the anterior portal and was used to ablate soft tissues along the acromioclavicular joint and distal clavicle. The posterior and superior ligamentous structures were left intact. A distal clavicle excision of 8 mm was performed using the hooded bur. Any remaining bursal tissue was removed using the arthroscopic shaver. The subacromial space was irrigated and then drained. All arthroscopic instruments were removed. A gentle manipulation under anesthesia was then performed. Full passive range of motion was easily attained. The 3 portals were closed with 3-0 nylon interrupted suture. The subacromial space was injected with Marcaine. Dry sterile dressing was placed over all incisions. The patient's left upper extremity was placed into a sling. The patient was awoken and extubated in the operating room. The patient was transferred to the recovery room in stable condition.
[2024-05-26] MEDS: cefTRIAXone sodium 1 GM VIAL IVPUSH (09:25)
== END 2024-05-26 10:20 | disposition home or self-care (01) ==
PROVIDERS: Nurse Practitioner; PCP Internal Medicine; Visit Provider Orthopaedic Surgery
PROC: (CPT 29805; principal; 2024-05-26 07:30)
DX: M75.42 Impingement syndrome of left shoulder (principal); M75.02 Adhesive capsulitis of left shoulder; M19.012 Primary osteoarthritis, left shoulder; I10 Essential (primary) hypertension; E78.00 Pure hypercholesterolemia, unspecified; I71.40 Abdominal aortic aneurysm, without rupture, unspecified; I25.2 Old myocardial infarction; E11.9 Type 2 diabetes mellitus without complications; G47.33 Obstructive sleep apnea (adult) (pediatric); J30.2 Other seasonal allergic rhinitis; Z79.82 Long term (current) use of aspirin; Z79.85 Long-term (current) use of injectable non-insulin antidiabetic drugs; Z79.899 Other long term (current) drug therapy; Z88.8 Allergy status to other drugs, medicaments and biological substances; Z91.012 Allergy to eggs; Z87.891 Personal history of nicotine dependence
CPT/HCPCS: 29824; 29825; 29826; 36415; 80048; 82947; 85027; J0131; J0171; J0665; J0690; J0696; J1100; J2003; J2250; J2405; J2704; J2795; J3010

== ENCOUNTER → 2024-05-26 05:51 | Outpatient (BNV) | payer OTHER, SELFPAY | PROVIDERS: PCP Internal Medicine; Visit Provider Orthopaedic Surgery | DX: M75.42 Impingement syndrome of left shoulder (principal); M19.012 Primary osteoarthritis, left shoulder; M75.02 Adhesive capsulitis of left shoulder | CPT/HCPCS: 29824; 29826 ==

== ENCOUNTER 2024-06-08 11:27 | Outpatient (AMB) | payer OTHER, SELFPAY ==
--- NOTE | 2024-06-08 11:32 | A.OFFVIS_ITS ---
Intake Visit Reasons: PO LT Shoulder 05/26/24 Intake Note: Elin is a 59 year old female who presents today for a post operative LT shoulder , DOS 05/26/24 Patient reports she is doing well, states with certain arm movements will cause a shooting pain up to her neck. Allergies rofecoxib [From Vioxx] Allergy (Mild, Verified 06/08/24 11:37) Rash eggs Allergy (Intermediate, Uncoded 06/08/24 11:37) Gastrointestinal Upset Medication List - Last Reconciled 06/08/24 by Mini Charles PA-C albuterol sulfate 90 mcg/actuation 2 puffs inhalation Q4-6H PRN amitriptyline 100 mg PO BEDTIME aspirin 81 mg PO DAILY atorvastatin 40 mg PO BEDTIME cholecalciferol (vitamin D3) 125 mcg PO DAILY duloxetine 60 mg PO DAILY 30 days loratadine 10 mg PO BEDTIME losartan 25 mg PO DAILY metoprolol succinate ER 50 mg PO DAILY omeprazole 20 mg PO BEDTIME tirzepatide (Mounjaro) 15 mg subcut .QTUESDAY HPI HPI PO LT Shoulder 05/26/24 DR: Details: 59 yo male presents to the office today s/p Lt shoulder 05/26/[address] Gunn. She has some discomfort with activities. [facility] Medical History Back pain GERD (gastroesophageal reflux disease) Diabetes Hx of myocardial infarction (2016) PJ (obstructive sleep apnea) Headache History of trigger finger Osteoarthritis DDD (degenerative disc disease), lumbar Depression Anxiety PTSD (post-traumatic stress disorder) Seasonal allergies Hypercholesteremia Hypertension Abdominal aortic aneurysm Myocardial infarction Surgical History Hx of colonoscopy H/O cardiac catheterization History of carpal tunnel release Hx of heart artery stent (02/2017) Hx of repair of rotator cuff Hx of mastoidectomy (12/2019) Hx of cholecystectomy (~1996) History of (11/1995) Social History (Updated 06/08/24 @ 11:34 by JOHN Buck) Household Members: Other Household Members Other:: adult daughter Housing: House Are you a primary account executive healthcare to a significant other at home: No Do you presently have visiting nurse or other home services: No 75 years or older and lives alone: No Patient Tobacco Use Status: Former Tobacco user Tobacco use type: Cigarette Cigarette Packs Per Day: 0.5 Years Smoked: 40 e-Cigarette/Vaping Use: Never Used Second Hand Smoke Exposure: No service: Yes Current occupational status: employed 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, right hand dominant Current occupational exposures/hazards: No Cognitive needs: No Hearing needs: No Vision needs: Yes (glasses) Review of Systems Const All systems reviewed & are unremarkable except as noted in HPI and below Physical Exam Const General: cooperative and no acute distress Orientation/consciousness: patient oriented x3 Resp Effort & Inspection: normal respiratory effort and able to speak in complete sentences Cardio Peripheral pulses: Peripheral pulses 2+ throughout Neuro General: patient oriented x3 Extrem Other: Left shoulder normal to inspection incision clean dry and intact. NVI Results Reviewed Results Reviewed: Brief Operative Note Date of Service: 05/26/24 Pre-op diagnosis: Left shoulder impingement syndrome, left shoulder acromioclavicular joint arthritis , left shoulder adhesive capsulitis Post-op diagnosis: same Procedure: Left shoulder diagnostic arthroscopy with left shoulder arthroscopic distal clavicle excision, left shoulder arthroscopic acromioplasty, left shoulder arthroscopic anterior capsular release, left shoulder manipulation under anesthesia Implants: none Surgeon: Negro Gunn MD Assessment & Plan Assessment & Plan (1) Impingement syndrome of left shoulder: Code(s): M75.42 - Impingement syndrome of left shoulder Category: Medical Plan: Suture removed steri strips applied. I recommend PT for RTC and periscap stabilization which she declined. She will begin work 06/09/24 , I expressed caution with repetitive motion and lifting. She will see us back in [address] Gunn , sooner if needed. Coding Level of Care Code Global (93196) Diagnoses Impingement syndrome of left shoulder M75.42
== END 2024-06-08 11:45 | disposition home or self-care (01) ==
PROVIDERS: PCP Internal Medicine; Visit Provider Physician Assistant
DX: M75.42 Impingement syndrome of left shoulder (principal)
CPT/HCPCS: 99024

== ENCOUNTER → 2024-06-08 11:27 | Outpatient (BNVA) | payer OTHER, SELFPAY | PROVIDERS: PCP Internal Medicine; Visit Provider Physician Assistant ==

== ENCOUNTER 2024-07-03 09:24 | Outpatient (AMB) | payer OTHER, SELFPAY ==
--- NOTE | 2024-07-03 09:27 | MHC.OFFVIS ---
Vital Signs 07/03/24 09:31 Height 5 ft 6 in Weight 210 lb BMI 33.9 Intake Visit Reasons: PO LT Shoulder 05/26/24 Intake Note: Elin is a 59 year old right hand dominant female who presents today for a post operative visit s/p Left Shoulder , DOS 05/26/24 Dr. Gunn. Patient reports that she is having some continued pain. The area where the bone spur was has improved significantly. On night she rolled over in bed onto the left shoulder and had significant increased pain. She has returned to work and gets increased pain with prolonged computer work/typing. Allergies rofecoxib [From Vioxx] Allergy (Mild, Verified 06/08/24 11:37) Rash eggs Allergy (Intermediate, Uncoded 06/08/24 11:37) Gastrointestinal Upset Medication List - Last Reconciled 07/03/24 by Mini Charles PA-C albuterol sulfate 90 mcg/actuation 2 puffs inhalation Q4-6H PRN amitriptyline 100 mg PO BEDTIME aspirin 81 mg PO DAILY atorvastatin 40 mg PO BEDTIME cholecalciferol (vitamin D3) 125 mcg PO DAILY duloxetine 60 mg PO DAILY 30 days loratadine 10 mg PO BEDTIME losartan 25 mg PO DAILY metoprolol succinate ER 50 mg PO DAILY omeprazole 20 mg PO BEDTIME tirzepatide (Mounjaro) 15 mg subcut .QTUESDAY HPI HPI PO LT Shoulder 05/26/24 DR: Details: 59-year-old female returns to the office today status post left shoulder arthroscopy on 05/26/[address] Gunn. She states she was doing well with her home exercises and daily activities however she rolled over in bed the other day she felt a sharp pain in her shoulder into the biceps region. She had discomfort with reaching and activities such as putting on her jacket. [facility] Medical History Back pain GERD (gastroesophageal reflux disease) Diabetes Hx of myocardial infarction (2017) PJ (obstructive sleep apnea) Headache History of trigger finger Osteoarthritis DDD (degenerative disc disease), lumbar Depression Anxiety PTSD (post-traumatic stress disorder) Seasonal allergies Hypercholesteremia Hypertension Abdominal aortic aneurysm Myocardial infarction Surgical History Hx of colonoscopy H/O cardiac catheterization History of carpal tunnel release Hx of heart artery stent (02/2017) Hx of repair of rotator cuff Hx of mastoidectomy (12/2019) Hx of cholecystectomy () History of (11/1995) Social History Household Members: Other Household Members Other:: adult daughter Housing: House Are you a primary career development coordinator/teacher to a significant other at home: No Do you presently have visiting nurse or other home services: No 75 years or older and lives alone: No Patient Tobacco Use Status: Former Tobacco user Tobacco use type: Cigarette Cigarette Packs Per Day: 0.5 Years Smoked: 40 e-Cigarette/Vaping Use: Never Used Second Hand Smoke Exposure: No service: Yes Current occupational status: employed 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 Chest and protraction of her shoulder and tenderness over the proximal biceps tendon. Forward flexion to 100 degrees. Results Reviewed Results Reviewed: Brief Operative Note Date of Service: 05/26/24 Pre-op diagnosis: Left shoulder impingement syndrome, left shoulder acromioclavicular joint arthritis, left shoulder adhesive capsulitis Post-op diagnosis: same Procedure: Left shoulder diagnostic arthroscopy with left shoulder arthroscopic distal clavicle excision, left shoulder arthroscopic acromioplasty, left shoulder arthroscopic anterior capsular release, left shoulder manipulation under anesthesia Implants: none Surgeon: Negro Gunn MD Assessment & Plan Assessment & Plan (1) Impingement syndrome of left shoulder: Code(s): M75.42 - Impingement syndrome of left shoulder Category: Medical Plan: We went over some exercises in the office today to work on scapular stabilization and rotator cuff strength. We discussed good posture with working and focusing on shoulder mechanics. She will continue with activities as tolerated and return in [address] Gunn if still symptomatic otherwise follow up as needed. Coding Level of Care Code Global (19687) Diagnoses Impingement syndrome of left shoulder M75.42
[2024-07-03 09:31] VITALS: BMI 33.9
== END 2024-07-03 09:52 | disposition home or self-care (01) ==
PROVIDERS: PCP Internal Medicine; Visit Provider Physician Assistant
DX: M75.42 Impingement syndrome of left shoulder (principal)
CPT/HCPCS: 99024

== ENCOUNTER 2024-09-07 15:51 | Outpatient (AMB) | payer OTHER, SELFPAY ==
--- NOTE | 2024-09-07 16:04 | MHC.PC.OV ---
Vital Signs 09/07/24 16:10 Height 5 ft 6 in Weight 207 lb 8 oz BMI 33.5 BP 114/62 Blood Pressure Location Rt brachial Position Sitting Respiration 16 Pulse 89 Pulse Source Pulse Oximeter Temp 98.6 F Temp Source Temporal Artery Scan Pulse Oximetry (%) 95 Oxygen Delivery Method Room Air Intake Visit Reasons: cpe Intake Note: Elin presents in the office today for her annual physical. Allergies rofecoxib [From Vioxx] Allergy (Mild, Verified 09/07/24 16:06) Rash Tobacco use date assessed: 09/07/24 Dental Screening Dental Screen Date: 09/07/24 Did you have a dental visit in the last 12 months?: No Did you have a dental problem in the last 6 months where you did not have access to dental care?: No Was dental information given to patient?: Patient declined HPI HPI Comments History of Present Illness Details This is a 59-year-old female with a past medical history of trigeminal nerve injury, abdominal aortic aneurysm, mastoiditis, degenerative disc disease, PTSD, major depressive disorder, hypertension and coronary artery disease presenting for a physical exam. She is a patient of Dr. Srivastava. CAD: Stable on current medications. Her blood pressure is well-controlled. She denies chest pain or exertional dyspnea. She lost weight on Mounjaro. She is followed by Cardiology. She had an abdominal altered on 05/18/2024 for surveillance of her aneurysm. She saw her ENT for evaluation of right ear pain and perceived hearing loss of the right ear. She had a CT without evidence of recurrent mastoiditis, and she had hearing testing. She quit smoking December of last year. She is vaping once in awhile. A mammogram was ordered by her primary care, and she is going to schedule it down in [place]. I provided her with a printed order as well today. Patient is due for colonoscopy, and she is referred to Dr. Yepez. She will return for fasting labs. She has a form that needs to be completed for her insurance. She declines vaccinations today. She will think about getting the Prevnar 20 vaccine. She is struggling with PTSD and depression. She is followed by behavioral health. They have been discussing FMLA versus patient applying for disability. She has a hard time processing this. No SI or HI. She is on amitriptyline and Cymbalta. She would like to be referred again to pain management for injections. She has chronic cervical neuralgia and degenerative disc disease in her lumbosacral spine. Eye exam is [id number]-my eye doctor in [place]. Declines referral for annual gynecology exam. ROS: Constitutional: No unexplained weight loss, fever, chills or night sweats. Eyes: No vision changes, blurry vision, double vision, eye pain, eye redness, eye discharge. ENT: see HPI. No sneezing, congestion, runny nose or sore throat. Respiratory: No shortness of breath, cough or sputum production. Cardiovascular: No chest pain, chest pressure or chest discomfort. No palpitations or pedal edema. Gastrointestinal: No anorexia, nausea, vomiting or diarrhea. No abdominal pain or blood in stool. Genitourinary: No dysuria, hematuria, urinary frequency. Neurologic: No headache, dizziness, syncope Musculoskeletal: see HPI Hematologic/Lymphatics: No bleeding or bruising. No painful lymph nodes. Skin: No rash Endocrine: No cold or heat intolerance. No polyuria or polydipsia. Psychiatric: No SI/HI. see HPI Physical exam: Constitutional: Alert, in no distress. Head: Normocephalic. Eyes: Pupils are equal, round and reactive to light. Extraocular muscles intact. Ear, Nose and Throat: Canals clear. TMs normal. Normal nasal mucosa. No nasal discharge. No oral lesions. Neck: Supple, Full range of motion. No lymphadenopathy. No palpable thyroid masses. Respiratory: Clear to auscultation. Cardiovascular: S1 S2 regular. No murmurs. No carotid bruits. Gastrointestinal: Abdomen soft, non-tender, non-distended. Normal bowel sounds. No palpable masses. Neurologic: No focal neurological deficits. Symmetric patellar reflexes. Moves all extremities spontaneously. Sensation intact bilaterally. Skin: No rashes Musculoskeletal: No gross deformities. Normal range of motion. Extremities: Warm and well perfused. No clubbing, cyanosis or edema. Intact upper and lower extremity peripheral pulses. Psychiatric: Cooperative, normal speech, tearful at times. FORMERLY [facility], [facility]–1983 Medical History Back pain GERD (gastroesophageal reflux disease) Diabetes Hx of myocardial infarction (2017) PJ (obstructive sleep apnea) Headache History of trigger finger Osteoarthritis DDD (degenerative disc disease), lumbar Depression Anxiety PTSD (post-traumatic stress disorder) Seasonal allergies Hypercholesteremia Hypertension Abdominal aortic aneurysm Myocardial infarction Surgical History Hx of colonoscopy H/O cardiac catheterization History of carpal tunnel release Hx of heart artery stent (02/2017) Hx of repair of rotator cuff Hx of mastoidectomy (12/2019) Hx of cholecystectomy (~1996) History of (11/1995) Social History (Updated 09/07/24 @ 16:09 by Sveta Mcghee MA) Household Members: Other Household Members Other:: adult daughter Housing: House Are you a primary skin care therapist to a significant other at home: No Do you presently have visiting nurse or other home services: No 75 years or older and lives alone: No Alcohol intake: never Patient Tobacco Use Status: Former Tobacco user Tobacco use type: Cigarette Cigarette Packs Per Day: 0.5 Years Smoked: 40 e-Cigarette/Vaping Use: Never Used Second Hand Smoke Exposure: No service: Yes Current occupational status: employed Current occupation: [employer], right hand dominant Current occupational exposures/hazards: No Cognitive needs: No Hearing needs: No Vision needs: Yes (glasses) Questionnaire PHQ-9 Over the last 2 weeks, how often have you been bothered by any of the following problems? 1. Little interest or pleasure in doing things: more than half the days 2. Feeling down, depressed, or hopeless: more than half the days 3. Trouble falling or staying asleep, or sleeping too much: more than half the days 4. Feeling tired or having little energy: more than half the days 5. Poor appetite or overeating: several days 6. Feeling bad about yourself - or that you are a failure or have let yourself or your family down: several days 7. Trouble concentrating on things, such as reading the newspaper or watching television: several days 8. Moving or speaking so slowly that other people could have noticed. Or the opposite - being so fidgety or restless that you have been moving around a lot more than usual: not at all 9. Thoughts that you would be better off or of hurting yourself in some way: not at all Total score: 11 Depression Screening Interpretation: Positive Depression Screening Done: Yes 77944 - PHQ-9 Billing: Patient declined-do not bill Source: Developed by Drs. Anant Murray, Jhoana Locke, Sanket Johnson and colleagues, with an educational jyotsna from [employer]. Thrive Questionnaire Date Thrive assessed: 09/07/24 I am a: Patient What is your living situation today?: I have a steady place to live Within the past 12 months, did the food you bought not last and you didn't have the money to get more?: Never true Within the past 12 months, did you worry whether your food would run out before you got money to buy more?: Never true Do you have trouble paying for medicines?: No Do you have trouble getting transportation to medical appointments?: No Do you have trouble paying your heating and electricity bill?: No Do you have trouble taking care of your child, family member or friend?: No Do you have trouble with day-to-day activities such as bathing, preparing meals, shopping, managing finances, etc.?: No Are you currently unemployed and looking for a job?: Yes Are you interested in more education?: Yes Please select the resources that you would like help with: None Currently or been in a relationship where the following occur: No concerns reported THRIVE Score: 0 AUDIT C Alcohol Use Questionnaire (AUDIT-C) 1. How often do you have a drink containing alcohol?: Never 3. How often do you have six or more drinks on one occasion?: Never Total Score: 0 Score Reviewed/Action Taken: No LILIAN-7 AMB Questionnaire LILIAN-7 Date LILIAN - 7 assessed: 09/07/24 Feeling nervous, anxious, or on edge: 2 = More than half the days Not being able to stop or control worryin = More than half the days Worrying too much about different things: 2 = More than half the days Trouble relaxin = More than half the days Being so restless that it is hard to sit still: 1 = Several days Becoming easily annoyed or irritable: 1 = Several days Feeling afraid as if something awful might happen: 1 = Several days Total LILIAN-7 score (0-4 normal; 5-9 mild; 10-14 moderate; 15-21 severe): 11 Source: Developed by Drs. Anant Murray, Sanket Sibley and colleagues, with an educational jyotsna from [employer]. LILIAN-7 Assessment Billing LILIAN-7 Assessment Tool: LILIAN-7 Assessment 86354 ACT Questionnaire In the past 4 weeks, how much of the time did your asthma keep you from getting as much done at work, school or at home?: None of the time Score: 5 Physical exam (Primary Care) Vital Signs: Last Vital Signs Temp 98.6 F 09/07/24 16:10 Pulse 89 09/07/24 16:10 Resp 16 09/07/24 16:10 BP 114/62 09/07/24 16:10 Pulse Ox 95 09/07/24 16:10 Oxygen Delivery Method Room Air 09/07/24 16:10 BMI result Body Mass Index 33.5 Tobacco/Smoking Status: Tobacco use Status Tobacco use date assessed 09/07/24 09/07/24 16:15 Patient Tobacco Use Status Former Tobacco user 09/07/24 16:15 Tobacco use type Cigarette 09/07/24 16:15 e-Cigarette/Vaping Use Never Used 09/07/24 16:15 PHQ-9: PHQ-9 Score PHQ-9: Total score 11 09/07/24 17:10 Depression Screening Interpretation: Positive Thrive Assessment: Date of Thrive Assessment Date Thrive assessed 09/07/24 09/07/24 16:15 Currently or been in a relationship where the following occur: No concerns reported Coding Level of Care Code Est Pt Prev Care 40-64y(61729) Diagnoses Routine physical examination Z00.00 Additional Codes LILIAN-7 Assessment Billing - LILIAN-7 Assessment Tool: LILIAN-7 Assessment 89032 ([id number]) Assessment & Plan Assessment & Plan (1) Routine physical examination: Code(s): Z00.00 - Encounter for general adult medical examination without abnormal findings Plan Patient is seen today for a routine physical. As part of this visit we reviewed the following issues, which are considered and essential part of preventative health in this age group: - Breast Cancer screening - Annual Senior [employer] Adf Developer exam - Screening for colon cancer - Blood pressure screening - Cholesterol screening - Osteoporosis prevention including calcium/vitamin D intake, weight bearing exercise & smoking cessation - Nutritional and exercise counseling - Counseling of injury prevention including fire prevention, smoke alarms and seat belt usage - Screening for depression - Recommendations about immunizations - Recommendation of an eye exam - Screening for substance abuse She will schedule her mammogram. Referred for colonoscopy. Referred anew to pain management. Continue current medications. She will follow up with her therapist for further discussion regarding FMLA versus disability for PTSD and major depression. I will complete her form once she has her lab work completed. Follow up in 3 months with PCP for med review. Orders: Referrals Gastroenterology Referral Z12.11 - Encounter for screening for malignant neoplasm of colon Pain Management Referral M54.12 - Radiculopathy, cervical region
[2024-09-07 16:10] VITALS: BP 114/62; PULSE 89; RESP 16; TEMP 37; O2SAT 95; BMI 33.5
--- OUTSIDE RECORDS SUMMARY | 2024-09-07 18:12 | XMS_ITS | Encounter Summary ---
Author Organization [facility] Address [address] [place] [address] Care Team Providers Care Automation Architect Name Role Phone Tami Mario MD Primary Care Provider Unavaila [facility], Pcp Primary Care Provider UnavailTami Wilson MD Primary Care Provider Unavaila [facility], Pcp Primary Care Provider UnavailMarjorie Dobson MD Unavailable [phone] Jordy Steinberg Unavailable Tami Mario MD Unavailable Unavailable Kelly Paul MD Unavailable [phone] Tami Mario MD Primary Care Provider Unavaila Annia Morrissey PA-C Unavailable [phone] Sixto Hopson PA-C Unavailable [phone] Encounter Details Date Type Department Care Team Description 04/29/2016 Pt. Non Urgent Medical Question Medicine/Pediatrics - [address] [id number] Tami Mario MD Social History Tobacco Use Types Packs/Day Years Used Date Smoking Tobacco: Every Day Cigarettes 0.5 25 Alcohol Use Standard Drinks/Week Comments Yes 0 (1 standard drink = 0.6 oz pur e alcohol) rare Sex Assigned at Date Recorded Not on file Job Start Date Occupation Industry Not on file Not on file Not on file documented as of this encounter Progress Notes * Marion DixonP.N. - 04/30/2016 8:55 AM ESTFrom: Elin Beckford To: Tami Srivastava MD Sent: 04/29/2016 10:28 PM EST Subject: Xrays We had the discussion about x-rays and I do not wish to go to [facility]. Does the [facility] them or should I go to [facility] If it's the latter do I need a referral? At least you have brain to blame for forgetfulness, I'm just old! Thank you, Elin Beckford documented in this encounter Plan of Treatment Not on file documented as of this encounter Visit Diagnoses Not on filedocumented in this encounter Care Teams Automation Architect Relationship Specialty Start Date End Date Tami Mario MD PCP - General Internal Medicine 06/11/15 08/01/20 [facility], Pcp PCP - General Internal Medicine 08/02/20 08/11/20 Tami Mario MD PCP - General Internal Medicine 08/12/20 09/04/20 Formerly [facility], Pcp PCP - General Internal Medicine 09/05/20 11/03/21 Tami Mario MD PCP - General Internal Medicine 11/04/21 Marjorie Hess MD Specialist Cardiology 02/24/21 Jordy Steinberg PA Specialist Cardiology 02/24/21 11/11/23 Tami Mario MD Specialist Internal Medicine 10/28/21 Kelly Paul MD [address] [address] Specialist Neurosurgery 10/28/21 Annia Bolton PA-C [address] [address] Specialist Neurosurgery 10/16/22 Sixto Hopson PA-C 175 [facility] [address] [place] [address] Specialist Neurosurgery 10/16/22 documented as of this encounter
--- OUTSIDE RECORDS SUMMARY | 2024-09-07 18:12 | XMS_ITS | Encounter Summary ---
Author Organization [facility] Address [address] [place] [address] Care Team Providers Care Elevator Repairer Apprentice Name Role Phone Tami Mario MD Primary Care Provider Unavaila [facility], Pcp Primary Care Provider UnavailTami Wilson MD Primary Care Provider Unavaila [facility], Pcp Primary Care Provider UnavailMarjorie Dobson MD Unavailable [phone] Jordy Steinberg Unavailable Tami Mario MD Unavailable Unavailable Kelly Paul MD Unavailable [phone] Tami Mario MD Primary Care Provider Unavaila Annia Morrissey PA-C Unavailable [phone] Sixto Hopson PA-C Unavailable [phone] Encounter Details Date Type Department Care Team Description 11/09/2018 Orders Only Adult Medicine B - [place] [address] [place] [address] Aram Ortiz MD Elevated alkaline phosphatase level (Primary Dx); Hyperparathyroidism (HCC) Social History Tobacco Use Types Packs/Day Years Used Date Smoking Tobacco: Every Day Cigarettes 0.5 25 Smokeless Tobacco: Never Alcohol Use Standard Drinks/Week Comments Yes 0 (1 standard drink = 0.6 oz pur e alcohol) rare Sex Assigned at Date Recorded Not on file Job Start Date Occupation Industry Not on file Not on file Not on file documented as of this encounter Plan of Treatment Not on file documented as of this encounter Results * DXA BONE DENSITY STUDY 1+ SITS AXIAL SKEL (12/22/2018 2:01 PM EDT) 12/22/2018 4:41 PM EDT Impressions SACHI HANNAH OTHER EXTERNAL - 12/22/2018 4:42 PM EDT Normal by WHO criteria. [facility] Department of Internal Medicine recommends using National Osteoporosis Foundation (NOF) guidelines in treatment decisions related to osteoporosis. NOF guidelines suggest considering treatment for postmenopausal women and men aged 50 or older presenting with the following: History of hip or vertebral fracture. T-score = -2.5 (DXA) at the femoral neck, total hip, or spine, after appropriate evaluation to exclude secondary causes. Low bone mass (T-score between -1.0 and -2.5 at the femoral neck or spine) AND a 10-year probability of a hip fracture = 3% OR a 10-year probability of a major osteoporosis-related fracture = 20% based on the [place]-adapted WHO algorithm Please note that all treatment decisions require clinical judgment and consideration of individual patient factors, including patient preferences, co-morbidities, previous drug use, risk factors not captured in the FRAX model (e.g., frailty, falls, vitamin D deficiency, increased bone turnover, interval significant decline in bone density) and possible under- or over-estimation of fracture risk by FRAX. Optional alternative screening schedule based on luis Hernández., [facility] June 11, 2011 for patients with osteopenia (based on hip BMD T-score) is as follows: * ??advanced osteopenia (T scores -2.00 to -2.49), BMD testing every year * ??moderate osteopenia (T scores -1.50 to -1.99), BMD testing every 5 years mild osteopenia or normal BMD (T scores -1.50 and higher), BMD testing every 15 years Narrative SACHI HANNAH OTHER EXTERNAL - 12/22/2018 4:42 PM EDT DEXA SCAN: Lumbar Spine T-score is -0.9. ?? (SD relative to 20-29 y/o adult) Z-score is 0.1. ??(SD relative to age matched peers) This is considered normal by WHO criteria. Left Hip T-score is -0.1. Z-score is 0.8. This is considered normal by WHO criteria. Comparison exam(s): None. Procedure Note Ken Conde MD - 12/22/2018 DEXA SCAN: Lumbar Spine T-score is -0.9. (SD relative to 20-29 y/o adult) Z-score is 0.1. (SD relative to age matched peers) This is considered normal by WHO criteria. Left Hip T-score is -0.1. Z-score is 0.8. This is considered normal by WHO criteria. Comparison exam(s): None. IMPRESSION Normal by WHO criteria. [facility] Department of Internal Medicine recommendsusing National Osteoporosis Foundation (NOF) guidelines in treatment decisions related toosteoporosis. NOF guidelines suggest considering treatment for postmenopausal women and menaged 50 or older presenting with the following: History of hip or vertebral fracture. T-score = -2.5 (DXA) at the femoral neck, total hip, or spine, afterappropriate evaluation to exclude secondary causes. Low bone mass (T-score between -1.0 and -2.5 at the femoral neck or spine)AND a 10-year probability of a hip fracture = 3% OR a 10-year probability of a majorosteoporosis-related fracture = 20% based on the [place]-adapted WHO algorithm Please note that all treatment decisions require clinical judgment andconsideration of individual patient factors, including patient preferences, co- morbidities,previous drug use, risk factors not captured in the FRAX model (e.g., frailty, falls, vitaminD deficiency, increased bone turnover, interval significant decline in bone density) andpossible under- or over-estimation of fracture risk by FRAX. Optional alternative screening schedule based on luis Hernández., NEJMJanuary 2011 for patients with osteopenia (based on hip BMD T-score) is as follows: * advanced osteopenia (T scores -2.00 to -2.49), BMD testing every year * moderate osteopenia (T scores -1.50 to -1.99), BMD testing every 5years mild osteopenia or normal BMD (T scores -1.50 and higher), BMD testingevery 15 years Aram Ortiz MD DEXA SACHI HANNAH OTHER EXTERNAL * NUCLEAR SCAN OF SKELETON (BONE SCAN) (11/29/2018) Aram Ortiz MD NUCLEAR * SONO ABDOMEN COMPLETE (11/15/2018 10:37 AM EDT) 11/15/2018 2:44 PM EDT Addenda Addendum by Sonia Ortiz DO on 11/15/2018 4:53 PM EDT ADDENDUM: IMPRESSION SHOULD READ: IMPRESSION: 1. Limited examination due to patient body habitus and rib shadowing. Status post cholecystectomy. 2. Mild hepatomegaly with diffusely increased parenchymal echogenicity, suggesting steatosis or other diffuse hepatocellular disease process. 3. Fusiform aneurysmal dilatation of the distal abdominal aorta measures up to 3.6 cm. Continued imaging surveillance recommended. Impressions SACHI ROCHA EXTERNAL - 11/15/2018 2:46 PM EDT IMPRESSION: 1. Limited examination due to patient body habitus and rib shadowing. Status post cholecystectomy. 2. Mild thyromegaly with diffusely increased parenchymal echogenicity, suggesting steatosis or other diffuse hepatocellular disease process. 3. Fusiform aneurysmal dilatation of the distal abdominal aorta measures up to 3.6 cm. Continued imaging surveillance recommended. Narrative SACHI ROCHA EXTERNAL - 11/15/2018 2:46 PM EDT ULTRASOUND ABDOMEN COMPLETE INDICATION: Elevated alkaline phosphatase. COMPARISON: None available. FINDINGS: Per field sales representative, exam is limited by patient body habitus and rib shadowing. The liver measures up to 16.6 cm with diffusely increased parenchymal echogenicity. There is no intrahepatic or extrahepatic biliary dilatation. The common bile duct measures 0.4 cm. Preserved hepatopedal flow is documented within the main portal vein. The gallbladder is surgically absent. The pancreatic head and body are normal in size and echogenicity. The pancreatic tail is obscured by overlying bowel gas. The spleen measures 13 cm and is unremarkable in appearance. The right kidney measures 11.5 cm and the left kidney measures 12.8 cm. No pelvicalyceal dilatation or intrarenal calculi are identified on either side. The inferior vena cava is patent. Fusiform aneurysmal dilatation of the distal abdominal aorta measures up to 3.6 cm. There is no free fluid within the imaged upper abdomen. Procedure Note Sonia Ortiz, DO - 11/15/2018 ULTRASOUND ABDOMEN COMPLETE INDICATION: Elevated alkaline phosphatase. COMPARISON: None available. FINDINGS: Per field sales representative, exam is limited by patient body habitus and ribshadowing. The liver measures up to 16.6 cm with diffusely increased parenchymalechogenicity. There is no intrahepatic or extrahepatic biliary dilatation. The common bile ductmeasures 0.4 cm. Preserved hepatopedal flow is documented within the main portal vein. The gallbladder is surgically absent. The pancreatic head and body are normal in size and echogenicity. Thepancreatic tail is obscured by overlying bowel gas. The spleen measures 13 cm and is unremarkable in appearance. The right kidney measures 11.5 cm and the left kidney measures 12.8 cm. Nopelvicalyceal dilatation or intrarenal calculi are identified on either side. The inferior vena cava is patent. Fusiform aneurysmal dilatation of thedistal abdominal aorta measures up to 3.6 cm. There is no free fluid within the imaged upper abdomen. IMPRESSION IMPRESSION: 1. Limited examination due to patient body habitus and rib shadowing.Status post cholecystectomy. 2. Mild thyromegaly with diffusely increased parenchymal echogenicity,suggesting steatosis or other diffuse hepatocellular disease process. 3. Fusiform aneurysmal dilatation of the distal abdominal aorta measuresup to 3.6 cm. Continued imaging surveillance recommended. Aram Ortiz MD ULTRASOUND [place] OTHER EXTERNAL documented in this encounter Visit Diagnoses Diagnosis Elevated alkaline phosphatase level- Primary Other nonspecific abnormal serum enzyme levels Hyperparathyroidism (HCC) Hyperparathyroidism, unspecified Elevated alkaline phosphatase level Other nonspecific abnormal serum enzyme levels Elevated alkaline phosphatase level Other nonspecific abnormal serum enzyme levels Hyperparathyroidism (HCC) Hyperparathyroidism, unspecified documented in this encounter Care Teams Elevator Repairer Apprentice Relationship Specialty Start Date End Date Tami Mario MD PCP - General Internal Medicine 06/11/15 08/01/20 [facility], Pcp PCP - General Internal Medicine 08/02/20 08/11/20 Tami Mario MD PCP - General Internal Medicine 08/12/20 09/04/20 [facility], Pcp PCP - General Internal Medicine 09/05/20 11/03/21 Tami Mario MD PCP - General Internal Medicine 11/04/21 Marjorie Hess MD Specialist Cardiology 02/24/21 Jordy Steinberg PA Specialist Cardiology 02/24/21 11/11/23 Tami Mario MD Specialist Internal Medicine 10/28/21 Kelly Paul MD 175 [facility] [address] [place] [address] Specialist Neurosurgery 10/28/21 Annia Bolton PA-C [address] [address] Specialist Neurosurgery 10/16/22 Sixto Hopson PA-C 175 [facility] [address] [place] [address] Specialist Neurosurgery 10/16/22 documented as of this encounter
--- OUTSIDE RECORDS SUMMARY | 2024-09-07 18:12 | XMS_ITS | Encounter Summary ---
Author Organization [facility] Address [address] [place] [address] Care Team Providers Care Financial Economist Name Role Phone Tami Mario MD Primary Care Provider Unavaila ble [facility], Pcp Primary Care Provider UnavailTami Wilson MD Primary Care Provider Unavaila [facility], Pcp Primary Care Provider UnavailMarjorie Dobson MD Unavailable [phone] Jordy Steinberg Unavailable Tami Mario MD Unavailable Unavailable Kelly Paul MD Unavailable [phone] Tami Mario MD Primary Care Provider Unavaila Annia Morrissey PA-C Unavailable [phone] Sixto Hopson PA-C Unavailable [phone] Encounter Details Date Type Department Care Team Description 07/18/2020 Head Of Training And Development Report Medical Records [address] [place] [address] Nahomi Billings Social History Tobacco Use Types Packs/Day Years [...] on filedocumented in this encounter Care Teams Financial Economist Relationship Specialty Start Date End Date Tami Mario MD PCP - General Internal Medicine 06/11/15 08/01/20 [facility], Pcp PCP - General Internal Medicine 08/02/20 08/11/20 Tami Mario MD PCP - General Internal Medicine 08/12/20 09/04/20 [facility], Pcp PCP - General Internal Medicine 09/05/20 11/03/21 Tami Mario MD PCP - General Internal Medicine 11/04/21 Marjorie Hess MD Specialist Cardiology 02/24/21 Jordy Steinberg PA Specialist Cardiology 02/24/21 11/11/23 Tami Mario MD Specialist Internal Medicine 10/28/21 Kelly Paul MD [address] [address] Specialist Neurosurgery 10/28/21 Annia Bolton PA-C 175 [facility] [address] [place] [address] Specialist Neurosurgery 10/16/22 Sixto Hopson PA-C 175 [facility] [address] [place] [address] Specialist Neurosurgery 10/16/22 documented as of this encounter
--- OUTSIDE RECORDS SUMMARY | 2024-09-07 18:12 | XMS_ITS | Encounter Summary ---
Author Organization [facility] Address [address] [place] [address] Care Team Providers Care Composition Instructor Name Role Phone Tami Mario MD Primary Care Provider Unavaila ble [facility], Pcp Primary Care Provider UnavailTami Wilson MD Primary Care Provider Unavaila [facility], Pcp Primary Care Provider UnavailMarjorie Dobson MD Unavailable [phone] Jordy Steinberg Unavailable Tami Mario MD Unavailable Unavailable Kelly Paul MD Unavailable [phone] Tami Mario MD Primary Care Provider Unavaila Annia Morrissey PA-C Unavailable [phone] Sixto Hopson PA-C Unavailable [phone] Encounter Details Date Type Department Care Team Description 03/23/2019 Bolting Machine Operator Report Medical Records [address] [place] [address] Paulina White NP Social History Tobacco Use Types Packs/Day Years [...] on filedocumented in this encounter Care Teams Composition Instructor Relationship Specialty Start Date End Date Tami [...] Internal Medicine 10/28/21 Kelly Paul MD [address] [address] Specialist Neurosurgery 10/28/21 Annia Bolton PA-C [address] [address] Specialist Neurosurgery 10/16/22 Sixto Hopson PA-C [address] [facility] [address] [place] [address] Specialist Neurosurgery 10/16/22 documented as of this encounter
--- OUTSIDE RECORDS SUMMARY | 2024-09-07 18:12 | XMS_ITS | Encounter Summary ---
Author Organization [facility] Address [address] [place] [address] Care Team Providers Care Fork Truck Driver Name Role Phone Tami Mario MD Primary Care Provider Unavaila ble [facility], Pcp Primary Care Provider Unavailabl Tami Christian MD Primary Care Provider Unavaila [facility], Pcp Primary Care Provider UnavailMarjorie Dobson MD Unavailable [phone] Jordy Steinberg Unavailable Tami Mario MD Unavailable Unavailable Kelly Paul MD Unavailable [phone] Tami Mario MD Primary Care Provider Unavaila Annia Morrissey PA-C Unavailable [phone] Sixto Hopson PA-C Unavailable [phone] Encounter Details Date Type Department Care Team Description 06/19/2016 Airline Customer Service Agent Report Medical Records [address] [place] [address] Ashlie Yepez MD Social History Tobacco Use Types Packs/Day [...] on filedocumented in this encounter Care Teams Fork Truck Driver Relationship Specialty Start Date End Date Tami [...] Internal Medicine 10/28/21 Kelly Paul MD [address] [address] Specialist Neurosurgery 10/28/21 Annia Bolton PA-C [address] [address] Specialist Neurosurgery 10/16/22 Sixto Hopson PA-C 175 [facility] [address] [place] [address] Specialist Neurosurgery 10/16/22 documented as of this encounter
--- OUTSIDE RECORDS SUMMARY | 2024-09-07 18:12 | XMS_ITS | Encounter Summary ---
Author Organization [facility] Address [address] [place] [address] Care Team Providers Care Nuclear Logging Engineer Name Role Phone Tami Mario MD Primary Care Provider [facility]availa [facility], Pcp Primary Care Provider UnavailTami Wilson MD Primary Care Provider Unavaila [facility], Pcp Primary Care Provider UnavailMarjorie Dobson MD Unavailable [phone] Jordy Steinberg Unavailable Tami Mario MD Unavailable Unavailable Kelly Paul MD Unavailable [phone] Tami Mario MD Primary Care Provider Unavaila Annia Morrissey PA-C Unavailable [phone] Sixto Hopson PA-C Unavailable [phone] Encounter Details Date Type Department Care Team Description 06/30/2019 Hospital Medical Records [address] [place] [address] Social History Tobacco Use Types Packs/Day Years Used Date Smoking Tobacco: Every Day Cigarettes 0.5 25 Smokeless Tobacco: Never Alcohol Use Standard Drinks/Week Comments Yes 0 (1 standard drink = 0.6 oz pur e alcohol) occasionally Sex Assigned at Date Recorded Not on file Job Start Date Occupation Industry Not on file Not on file Not on file documented as of this encounter Plan of Treatment Not on file documented as of this encounter Visit Diagnoses Not on filedocumented in this encounter Care Teams Nuclear Logging Engineer Relationship Specialty Start Date End Date Tami [...] Internal Medicine 10/28/21 Kelly Paul MD [address] [id number] Specialist Neurosurgery 10/28/21 Annia Bolton PA-C [address] [address] Specialist Neurosurgery 10/16/22 Sixto Hopson PA-C [address] [address] Specialist Neurosurgery 10/16/22 documented as of this encounter
--- OUTSIDE RECORDS SUMMARY | 2024-09-07 18:12 | XMS_ITS | Clinical Summary ---
Author Organization [facility] Address [address] [place] [address] Care Team Providers Care Print Manager Name Role Phone Tami Srivastava MD Primary Care Provider [phone] Immunizations Name Administration Dates Next Due Pfizer SARS-CoV-2 COVID-19, mRNA, LNP-S, preservative free 06/12/2020 Surgical History Surgery Date Site/Laterality Comments CHOLECYSTECTOMY 1996 PROCEDURE: HISTORICAL CHOLECYSTECTOMY OTHER SURGICAL HISTORY 1995 PROCEDURE: ANESTHESIA FOR SECTION OTHER SURGICAL HISTORY PROCEDURE: HISTORICAL D&C; COMMENT: x2 Medical History Medical History Date Comments Vitamin D deficiency 08/08/2015 DX:Vitamin D deficiency Prediabetes 11/14/2015 DX:Prediabetes Hypertension 04/28/2016 DX:Hypertension RAD (reactive airway disease) DX :RAD (reactive airway disease) AAA (abdominal aortic aneury sm) ([facility]/HCC V24) DX:AAA (abdominal aortic ane urysm) ([facility]); COMMENT: 3.2 cm Family History Medical History Relation Name Comments Prostate cancer Brother 1 Allergies Brother 2 bee Alcohol/Drug Brother 3 alcohol Alcohol/Drug Father alcohol Arthritis Father Heart attack Father Hypertension Father Mental illness Father Depression Mother Diabetes Mother Glaucoma Mother Hypertension Mother Prostate cancer Mother Gallbladder dx 62 Diabetes Sister 1 Breast cancer Neg Hx Colon cancer Neg Hx Ovarian cancer Neg Hx Uterine cancer Neg Hx Relation Name Status Comments Brother 1 Alive A&W Brother 2 Brother 3 Daughter Alive A&W Father rheumatoid arth ritis, [place] age 56 Mother HTN, DMII, Gall bladder CA Sister 1 Sister 2 Alive A&W Social History Tobacco Use Types Packs/Day Years Used Date Smoking Tobacco: Every Day Cigarettes Smokeless Tobacco: Never Alcohol Use Standard Drinks/Week Comments Yes 0 (1 standard drink = 0.6 oz pur e alcohol) Comments Unknown Sex and Gender Information Value Date Recorded Sex Assigned at Not on file Legal Sex Female 1:06 PM EST Gender Identity Not on file Sexual Orientation Not on file Obstetrics History Last Filed Vital Signs Vital Sign Reading Time Taken Comments Blood Pressure 144/82 11/17/2023 10:56 AM EDT Sitting R Arm Pulse 95 11/17/2023 10:56 AM EDT Temperature - - Respiratory Rate - - Oxygen Saturation - - Inhaled Oxygen Concentration - - Weight 91.4 kg (201 lb 9.6 oz) 11/17/2023 10:56 AM EDT Height 167.6 cm (5' 6 ) 11/17/2023 10:5 6 AM EDT Body Mass Index 32.54 11/17/2023 10:56 AM EDT Plan of Treatment Health Maintenance Due Date Last Done Comments Breast Cancer Screening 1966 Diabetes: Annual GFR (Glomerular Filtration Rate) 1966 Diabetes: Annual Foot Exam 01/14/1976 Diabetes: Annual Retina Eye Exam 01/14/1976 Hepatitis B Vaccines (1 of 3 - 19+ 3-dose series) 1985 Pneumococcal Vaccine: 50+ Years (1 of 2 - PCV) 1985 Pneumococcal Vaccine: Pediatrics (0 to 5 Years) and At-Risk Patients (6 to 64 Years) (1 of 2 - PCV) 1985 Cervical Cancer Screening: P ap Smear 1987 Zoster Vaccines (1 of 2) 01/14/2016 DTaP,Tdap,and Td Vaccines (2 - Td or Tdap) 09/10/2018 09/10/2008 Cholesterol Screening (Lipid Panel) 05/08/2020 Colorectal Cancer Screening: Colonoscopy 05/08/2020 Depression Screening 05/08/2020 HIV Screening 05/08/2020 Hepatitis C Screening 05/08/2020 Social Influencers of Health Screening 05/08/2020 Hypertension/CHF/CAD Annual BMP Blood Test 05/03/2022 Diabetes: Annual Urine Albumin-Creatinine Ratio (uACR) 07/08/2023 Diabetes: Blood Sugar Contro l Test (HGBA1C) 07/08/2023 COVID-19 Vaccine (2023-2 5 season) 2024 02/18/2021, 07/02/2020, 06/12/2020 Influenza Vaccine (Season Ended) 2025 HIB Vaccines Aged Out No longer eligi ble based on patient's age to complete this topic HPV Vaccines Aged Out No longer eligi ble based on patient's age to complete this topic Hepatitis A Vaccines Aged Out No long er eligible based on patient's age to complete this topic IPV Vaccines Aged Out No longer eligi ble based on patient's age to complete this topic MMR Vaccines Aged Out No longer eligi ble based on patient's age to complete this topic Meningococcal ACWY Vaccine Aged Out N o longer eligible based on patient's age to complete this topic Meningococcal B Vaccine Aged Out No l onger eligible based on patient's age to complete this topic RSV Immunization Patients Under 20 months Aged Out No longer eligible b ased on patient's age to complete this topic Varicella Vaccines Aged Out No longer eligible based on patient's age to complete this topic Insurance [facility] Care Teams Print Manager Relationship Specialty Start Date End Date Tami Srivastava MD PCP - General Internal Medicine 11/04/21
--- OUTSIDE RECORDS SUMMARY | 2024-09-07 18:12 | XMS_ITS | Encounter Summary ---
Author Organization [facility] Address [address] [place] [address] Care Team Providers Care Supply Clerk Name Role Phone Tami Mario MD Primary Care Provider Unavaila ble [facility], Pcp Primary Care Provider UnavailTami Wilson MD Primary Care Provider Unavaila [facility], Pcp Primary Care Provider UnavailMarjorie Dobson MD Unavailable [phone] Jordy Steinberg Unavailable Tami Mario MD Unavailable Unavailable Kelly Paul MD Unavailable [phone] Tami Mario MD Primary Care Provider Unavaila Annia Morrissey PA-C Unavailable [phone] Sixto Hopson PA-C Unavailable [phone] Encounter Details Date Type Department Care Team Description 06/29/2019 Hospital Medical Records [address] [place] [address] Social History Tobacco Use Types Packs/Day Years [...] on filedocumented in this encounter Care Teams Supply Clerk Relationship Specialty Start Date End Date Tami [...] Internal Medicine 10/28/21 Kelly Paul MD [address] [id number] Specialist Neurosurgery 10/28/21 Annia Bolton PA-C [address] [address] Specialist Neurosurgery 10/16/22 Sixto Hopson PA-C [address] [address] Specialist Neurosurgery 10/16/22 documented as of this encounter
--- OUTSIDE RECORDS SUMMARY | 2024-09-07 18:12 | XMS_ITS | Encounter Summary ---
Author Organization [facility] Address [address] [place] [address] Care Team Providers Care Nurse Case Management Name Role Phone Marjorie Hess MD Unavailable [phone] Jordy Steinberg Unavailable Tami Mario MD Unavailable Unavailable Kelly Paul MD Unavailable [phone] Tami Mario MD Primary Care Provider Unavaila Annia Morrissey PA-C Unavailable [phone] Sixto Hopson PA-C Unavailable [phone] Encounter Details Date Type Department Care Team Description 02/11/2022 Surveyor Instrument Assistant Report Medical Records [address] [place] [address] Tami Mario MD Social History Tobacco Use [...] on filedocumented in this encounter Care Teams Nurse Case Management Relationship Specialty Start Date End Date Tami Mario MD PCP - General Internal Medicine 11/04/21 Marjorie Hess MD Specialist Cardiology 02/24/21 Jordy Steinberg PA Specialist Cardiology 02/24/21 11/11/23 aTmi Mario MD Specialist Internal Medicine 10/28/21 Kelly Paul MD [address] [id number] Specialist Neurosurgery 10/28/21 Annia Bolton PA-C [address] [address] Specialist Neurosurgery 10/16/22 Sixto Hopson PA-C 175 [facility] [address] [place] [address] [id number] Specialist Neurosurgery 10/16/22 documented as of this encounter
--- OUTSIDE RECORDS SUMMARY | 2024-09-07 18:12 | XMS_ITS ---
Author Name [facility] Organization Unknown Care Team Organization Name Specialty Phone Email Start Date End Willian nava PodiatrLayla P.CWillie 10/24/2022 PodiatryCken PTami [facility]
--- OUTSIDE RECORDS SUMMARY | 2024-09-07 18:12 | XMS_ITS | Encounter Summary ---
Author Organization [facility] Address [address] [place] [address] Care Team Providers Care Amalgamator Name Role Phone Community, Pcp Primary Care Provider UnavailMarjorie Dobson MD Unavailable [phone] Jordy Steinberg Unavailable Tami Mario MD Unavailable Unavailable Kelly Paul MD Unavailable [phone] Tami Mario MD Primary Care Provider UnavailAnnia Casillas PA-C Unavailable [phone] Sixto Hopson PA-C Unavailable [phone] Encounter Details Date Type Department Care Team Description 10/31/2021 Release of Information Medical Records [address] [place] [address] Abstract, Provider Social History Tobacco Use Types Packs/Day Years [...] on filedocumented in this encounter Care Teams Amalgamator Relationship Specialty Start Date End Date Community, Pcp PCP - General Internal Medicine 09/05/20 11/03/21 Tami Mario MD PCP - General Internal Medicine 11/04/21 Marjorie Hess MD Specialist Cardiology 02/24/21 Jordy Steinberg PA Specialist Cardiology 02/24/21 11/11/23 Tami Mario MD Specialist Internal Medicine 10/28/21 Kelly Paul MD 175 [facility] [address] [place], [place] [id number] Specialist Neurosurgery 10/28/21 Annia Bolton PA-C 175 [facility] [address] [place] [address] Specialist Neurosurgery 10/16/22 Sixto Hopson PA-C 175 [facility] [address] [place] [address] Specialist Neurosurgery 10/16/22 documented as of this encounter
--- OUTSIDE RECORDS SUMMARY | 2024-09-07 18:12 | XMS_ITS | Encounter Summary ---
Author Organization [facility] Address [address] [place] [address] Care Team Providers Care Bending Shed Worker Name Role Phone Community, Pcp Primary Care Provider UnavailMarjorie Dobson MD Unavailable Jordy Steinberg Unavailable Tami Mario MD Unavailable Unavailable Kelly Paul MD Unavailable [phone] Tami Mario MD Primary Care Provider UnavailAnnia Casillas PA-C Unavailable [phone] Sixto Hopson PA-C Unavailable [phone] Encounter Details Date Type Department Care Team Description 08/04/2021 SCAN Medical Records [address] [place] [address] Abstract, Provider Social History Tobacco Use Types [...] on file documented as of this encounter Procedures Procedure Name Priority Date/Time Associated Diagnosis Comments OUTSIDE LAB Routine 08/04/2021 documented in this encounter Results * OUTSIDE LAB (08/04/2021) Provider Default LAB documented in this encounter Visit Diagnoses Not on filedocumented in this encounter Care Teams Bending Shed Worker Relationship Specialty Start Date End Date [facility], Pcp PCP - General Internal Medicine 09/05/20 11/03/21 Tami Mario MD PCP - General Internal Medicine 11/04/21 Marjorie Hess MD Specialist Cardiology 02/24/21 Jordy Steinberg PA Specialist Cardiology 02/24/21 11/11/23 Tami Mario MD Specialist Internal Medicine 10/28/21 Kelly Paul MD [address] [address] Specialist Neurosurgery 10/28/21 Annia Bolton PA-C [address] [address] Specialist Neurosurgery 10/16/22 Sixto Hopson PA-C 175 [facility] [address] [place] [address] Specialist Neurosurgery 10/16/22 documented as of this encounter
--- OUTSIDE RECORDS SUMMARY | 2024-09-07 18:12 | XMS_ITS | Encounter Summary ---
Author Organization [facility] Address [address] [place] [address] Care Team Providers Care Instructional Technology Facilitator Name Role Phone Community, Pcp Primary Care Provider UnavailMarjorie Dobson MD Unavailable [phone] Jordy Steinberg Unavailable Tami Mario MD Unavailable Unavailable Kelly Paul MD Unavailable [phone] Tami Mario MD Primary Care Provider UnavailAnnia Casillas PA-C Unavailable [phone] Sixto Hopson PA-C Unavailable [phone] Encounter Details Date Type Department Care Team Description 08/04/2021 Outdoor Landscape Architect Report Medical Records [address] [place] [address] Tami Mario MD Social History Tobacco Use [...] on filedocumented in this encounter Care Teams Instructional Technology Facilitator Relationship Specialty Start Date End Date Community, Pcp PCP - General Internal Medicine 09/05/20 11/03/21 Tami Mario MD PCP - General Internal Medicine 11/04/21 Marjorie Hess MD Specialist Cardiology 02/24/21 Jordy Steinberg PA Specialist Cardiology 02/24/21 11/11/23 Tami Mario MD Specialist Internal Medicine 10/28/21 Kelly Paul MD 175 [facility] [address] [place] [address] [phone] Specialist Neurosurgery 10/28/21 Annia Bolton PA-C 175 [facility] [address] [place] [address] Specialist Neurosurgery 10/16/22 Sixto Hopson PA-C 175 [facility] [address] [place] [address] Specialist Neurosurgery 10/16/22 documented as of this encounter
--- OUTSIDE RECORDS SUMMARY | 2024-09-07 18:12 | XMS_ITS | Encounter Summary ---
Author Organization [facility] Address [address] [place] [address] Care Team Providers Care Engineering Model Maker Name Role Phone Tami Mario MD Primary Care Provider Unavaila [facility], Pcp Primary Care Provider UnavailTami [place] MD Primary Care Provider Unavaila [facility], Pcp Primary Care Provider UnavailMarjorie Dobson MD Unavailable [phone] Jordy Steinberg Unavailable Tami Mario MD Unavailable Unavailable Kelly Paul MD Unavailable [phone] Tami Mario MD Primary Care Provider Unavaila Annia Morrissey PA-C Unavailable [phone] Sixto Hopson PA-C Unavailable [phone] Encounter Details Date Type Department Care Team Description 06/26/2020 Pt. Non Urgent Medical Question Medicine/Pediatrics - [address] [address] Tami Mario MD Social History Tobacco Use [...] of this encounter Progress Notes * Marion Lara L.P.N. - 06/26/2020 1:44 PM ESTFrom: Elin Beckford To: Tami Mario MD Sent: 06/26/2020 1:32 PM EST Subject: blood work I hope this message finds you well in your COVID bubble. Would you please put in an order for my 6 month blood work? I've been feeling run down lately and just want to make sure nothing is out of whack. Thank you documented in this encounter Plan of Treatment Not on file documented as of this encounter Visit Diagnoses Not on filedocumented in this encounter Care Teams Engineering Model Maker Relationship Specialty Start Date End Date Tami Mario MD PCP - General Internal Medicine 06/11/15 08/01/20 [facility], Pcp PCP - General Internal Medicine 08/02/20 08/11/20 Tami Mario MD PCP - General Internal Medicine 08/12/20 09/04/20 [facility], Pcp PCP - General Internal Medicine 09/05/20 11/03/21 Tami Mario MD PCP - General Internal Medicine 11/04/21 Marjorie Hess MD Specialist Cardiology 02/24/21 Jordy Steinberg PA Specialist Cardiology 02/24/21 11/11/23 Tami Mario MD Specialist Internal Medicine 10/28/21 Kelly Paul MD 175 [facility] [address] [place] [address] Specialist Neurosurgery 10/28/21 Annia Bolton PA-C [address] [address] Specialist Neurosurgery 10/16/22 Sixto Hopson PA-C 175 [facility] [address] [place] [address] Specialist Neurosurgery 10/16/22 documented as of this encounter
--- OUTSIDE RECORDS SUMMARY | 2024-09-07 18:13 | XMS_ITS | Clinical Summary ---
Author Organization [facility] Address [address] [place] [address] Care Team Providers Care Maintenance Machinist Name Role Phone Tami Srivastava MD Primary Care Provider [phone] Allergies Active Allergy Reactions Criticality Noted Date Comments Rofecoxib Hives Medium 01/08/2020 Medications aspirin enteric coated (ECOTRIN LOW STRENGTH) 81 MG EC tablet Take 81 mg by mouth daily. Active atorvastatin (LIPITOR) 80 MG tablet Take 80 mg by mouth daily. Active losartan (COZAAR) 25 MG tablet Take 1 tablet by mouth daily. 02/23/2019 Active metoPROLOL TARTRATE (LOPRESSOR) 25 MG tablet Take 25 mg by mouth 2 (two) times a day. Active amitriptyline (ELAVIL) 50 MG tablet TAKE 1 TABLET BY MOUTH AT BEDTIME 02/23/2019 Active DULoxetine (CYMBALTA) 60 MG capsule TAKE 1 CAPSULE BY MOUTH EVERY DAY 04/18/2019 Active OMEprazole (PriLOSEC) 20 MG capsule Take 1 capsule by mouth daily. 12/20/2019 Active Cholecalciferol (Vitamin D-3) 125 MCG (5000 UT) Tab Take 1 tablet by mouth daily. Active albuterol (PROVENTIL HFA; VENTOLIN HFA) 108 (90 Base) MCG/ACT inhaler Inhale 2 Puffs into the lungs every 4 hours as needed. Active tretinoin (RETIN-A) 0.025 % cream Apply small amount QHS 12/20/2019 Active oxyCODONE (ROXICODONE) 5 MG immediate release tabletIndicatio ns:Mastoiditis of right side Take 1 tablet (5 mg total) by mouth every 4 (four) hours as needed for severe pain. Max Daily Amount: 30 mg 15 tablet 01/09/2020 Active Social History Tobacco Use Types Packs/Day Years Used Date Smoking Tobacco: Every Day Cigarettes 0.5 30 Smokeless Tobacco: Never Alcohol Use Standard Drinks/Week Comments Not Currently 0 (1 standard drink = 0.6 oz pur e alcohol) Comments Unknown Sex and Gender Information Value Date Recorded Sex Assigned at Not on file Legal Sex Female 1:24 PM EDT Gender Identity Not on file Sexual Orientation Not on file Last Filed Vital Signs Vital Sign Reading Time Taken Comments Blood Pressure 122/61 01/09/2020 4:30 PM EDT Pulse 96 01/09/2020 4:30 PM EDT Temperature 36.5 ??C (97.7 ??F) 01/09/2020 3:24 PM ED T Respiratory Rate 13 01/09/2020 4:30 PM EDT Oxygen Saturation 97% 01/09/2020 4:40 PM EDT Inhaled Oxygen Concentration - - Weight 109 kg (240 lb) 01/08/2020 11:07 AM EDT Height 168.9 cm (5' 6.5 ) 01/08/2020 11:07 AM ED T Body Mass Index 38.16 01/08/2020 11:07 AM EDT Plan of Treatment Health Maintenance Due Date Last Done Comments Hepatitis C Virus Screening 1966 HIV Screening 1979 DTaP/Tdap/Td Vaccines (1 - Tdap) 1985 Hepatitis B Vaccines (1 of 3 - 19+ 3-dose series) 12/23 Pap Smear (Ages 21-65) 1987 Mammogram 2006 Colonoscopy 2011 Pneumococcal Vaccines 50+ (1 of 1 - PCV) 01/14/2016 Zoster (Shingles) Vaccine (1 of 2) 01/14/2016 Influenza Vaccine 12/23/2023 COVID-19 Vaccine ( - 2023- season) 2024 Insurance [employer] HMO Advance Directives * Full Code (Latest Code Status on File) Date Activated Date Inactivated Comments 01/09/2020 12:05 PM Care Teams Maintenance Machinist Relationship Specialty Start Date End Date Tami Srivastava MD [address] [place] [address] [phone] PCP - General Primary Care-Scan 01/02/20
--- OUTSIDE RECORDS SUMMARY | 2024-09-07 18:13 | XMS_ITS | Encounter Summary ---
Author Organization [facility] Address [address] [place] [address] Care Team Providers Care Fingerprinter Name Role Phone Marjorie Hess MD Unavailable [phone] Jordy Steinberg Unavailable Tami Mario MD Unavailable Unavailable Kelly Paul MD Unavailable [phone] Tami Mario MD Primary Care Provider Unavaila Annia Morrissey PA-C Unavailable [phone] Sixto Hopson PA-C Unavailable [phone] Encounter Details Date Type Department Care Team Description 07/30/2022 SCAN Medical Records [address] [place] [address] Abstract, Provider Social History Tobacco Use Types [...] Date/Time Associated Diagnosis Comments OUTSIDE LAB Routine 07/30/2022 documented in this encounter Results * OUTSIDE LAB (07/30/2022) Provider Abstract LAB documented in this encounter Visit Diagnoses Not on filedocumented in this encounter Care Teams Fingerprinter Relationship Specialty Start Date End Date Tami Mario MD PCP - General Internal Medicine 11/04/21 Marjorie Hess MD Specialist Cardiology 02/24/21 Jordy Steinberg PA Specialist Cardiology 02/24/21 11/11/23 Tami Mario MD Specialist Internal Medicine 10/28/21 Kelly Paul MD [address] [id number] Specialist Neurosurgery 10/28/21 Annia Bolton PA-C [address] [address] Specialist Neurosurgery 10/16/22 Sixto Hopson PA-C [address] [address] Specialist Neurosurgery 10/16/22 documented as of this encounter
--- OUTSIDE RECORDS SUMMARY | 2024-09-07 18:13 | XMS_ITS | Clinical Summary ---
Author Organization [facility] Address [address] [place] [address] Care Team Providers Care Child Protective Investigator Name Role Phone Tami Srivastava MD Primary Care Provider [phone] Allergies Active Allergy Reactions Criticality Noted Date Comments Egg-Derived Products Other (See Comments) 03/16 Rofecoxib Rash Low 08/24/2018 Medications Medication Sig Dispensed Refills Start Date End Date Status losartan (COZAAR) tablet 25 mg Take 25 mg by mouth daily. 0 Active amitriptyline (ELAVIL) tablet 50 mg Take 50 mg by mouth every night at bedtime. 0 Active metoprolol tartrate (LOPRESSOR) 25 MG tablet Take by mouth 2 (two) times a day. 0 Active aspirin EC 81 MG tablet Take 81 mg by mouth daily. 0 Active omeprazole (PriLOSEC) 20 MG capsule Take 20 mg by mouth daily. 0 Active Albuterol Sulfate 108 (90 Base) MCG/ACT AEPB Inhale into the lungs. 0 Active DULoxetine (CYMBALTA) DR capsule 60 mg Take 60 mg by mouth daily. 0 Active liraglutide (VICTOZA) injection 18 mg/3 mL Inject 1.2 mg under the skin. 0 Active ergocalciferol (VITAMIN D2) capsule 93810 units Take 50,000 Units by mouth once a week. 0 Active Aspirin Buf,HjZtib-OoBwsn-KbJ , 81 MG TABS Take 1 tablet by mouth daily. 0 03/16/2017 Active atorvastatin (LIPITOR) tablet 80 mg Take 80 mg by mouth. 0 Active Cholecalciferol 125 MCG (5000 UT) TABS Take 1 tablet by mouth daily. 0 Active B-D ULTRAFINE III SHORT PEN 31G X 8 MM MISC DIRECTED USE TO INJECT INSULIN 0 01/02/2021 Active oxyCODONE (ROXICODONE) 5 MG immediate release tablet Take 5 mg by mouth every 4 (four) hours as needed. 0 01/09/2020 Active tretinoin (RETIN-A) 0.025 % cream Apply small amount QHS 0 12/20/2019 Active Linzess 72 MCG CAPS 0 04/07/2021 Activ e buPROPion (WELLBUTRIN XL) 300 MG 24 hr tablet Take 300 mg by mouth. 0 06/08/2017 Active Glucose Blood (OneTouch Ultra) STRP 0 05/23/2021 Act kala nicotine (NICOTROL) 10 MG inhaler See Instructions, 6-16 cartridges/day inhaled x 6-12 wk,then taper dose over 6-12 wk to d/c, # 100 Doses, 3 Refills, Maintenance, 04/05/17 13:48:46, stop cigarette use at start of tx, 6-16 cartridges/day inhaled x 6-12 wk,then taper dose over 6-12 wk... 0 03/31/2017 Active amitriptyline (ELAVIL) 10 MG tablet 50 mg. 0 03/09/2017 Act kala metoprolol tartrate (LOPRESSOR) 50 MG tablet Take 50 mg by mouth. 0 03/11/2017 Active Active Problems Problem Noted Date Diagnosed Date Osteoarthritis of one hip, right 11/18/2021 Lymphocytosis 12/24/2020 Immunizations Name Administration Dates Next Due Covid-19 (Pfizer) Dilution Required 06/12/2020 Family History Medical History Relation Name Comments Arthritis Brother Arthritis Father Heart defect Father Hypertension Father Cancer Mother Diabetes Mother Hypertension Mother Diabetes Sister Relation Name Status Comments Brother Father Mother Sister Social History Tobacco Use Types Packs/Day Years Used Date Smoking Tobacco: Every Day Cigarettes 0.5 Started: 1987 Smokeless Tobacco: Never Alcohol Use Standard Drinks/Week Comments No 0 (1 standard drink = 0.6 oz pur e alcohol) Sex and Gender Information Value Date Recorded Sex Assigned at Female 06/12/2020 8:16 AM EST Gender Identity Not on file Sexual Orientation Not on file Job Start Date Occupation Industry Not on file Not on file Not on file Last Filed Vital Signs Vital Sign Reading Time Taken Comments Blood Pressure 109/85 12/24/2020 11:42 AM EDT Pulse 89 12/24/2020 11:42 AM EDT Temperature 36.3 ??C (97.3 ??F) 12/24/2020 11:42 AM E DT Respiratory Rate - - Oxygen Saturation 99% 12/24/2020 11:42 AM EDT Inhaled Oxygen Concentration - - Weight 103.9 kg (229 lb) 11/17/2021 3:34 PM EDT Height 170.2 cm (5' 7 ) 11/17/2021 3:34 PM EDT Body Mass Index 35.87 11/17/2021 3:34 PM EDT Plan of Treatment Health Maintenance Due Date Last Done Comments Hepatitis B Vaccines (1 of 3 - 3-dose series) 1966 Hepatitis C Screening 1966 Pneumococcal Vaccine (1 of 2 - PCV) 01/14/1972 Depression Screening 1978 BMI Counseling 01/14/1984 Preventative Health Evaluation 01/14/1984 Tobacco Cessation Counseling 01/14/1984 Cervical Cancer Screening (P ap Smear) 1987 Colon Cancer Screening (Colonoscopy) 2011 Breast Cancer Screening (Mammogram) 01/14/2016 Shingrix-Zoster Vaccine (1 of 2) 01/14/2016 DTap / Tdap / Td (2 - Td or Tdap) 09/10/2018 009 COVID-19 Vaccine (2 - 2023-2 5 season) 2024 06/12/2020 Influenza Vaccine (#1) 2024 RSV Ped < 20 months Aged Out No longe r eligible based on patient's age to complete this topic [facility] Corporate Other 11/17/[address]UNEZ [address] [place] [address] Daryn-Rubio ,Elin Personal/Family Self [address] [place] [id number] [facility] Corporate Other 11/17/[address]IAM NUNEZ [address] Care Teams Child Protective Investigator Relationship Specialty Start Date End Date Tami Srivastava MD PCP - General Internal Medicine 12/24/20
--- OUTSIDE RECORDS SUMMARY | 2024-09-07 18:13 | XMS_ITS | Encounter Summary ---
Author Organization [facility] Address [address] [place] [address] Care Team Providers Care Organic Gardening Teacher Name Role Phone Marjorie Hess MD Unavailable [phone] Jordy Steinberg Unavailable Tami Mario MD Unavailable Unavailable Kelly Paul MD Unavailable [phone] Tami Mario MD Primary Care Provider Unavaila Annia Morrissey PA-C Unavailable [phone] Sixto Hopson PA-C Unavailable [phone] Encounter Details Date Type Department Care Team Description 08/02/2023 Transfer Records Vascular Surgery - [address] [place] [address] Records, Transfer Social History Tobacco Use Types Packs/Day Years [...] on filedocumented in this encounter Care Teams Organic Gardening Teacher Relationship Specialty Start Date End Date Tami Mario MD PCP - General Internal Medicine 11/04/21 Marjorie Hess MD Specialist Cardiology 02/24/21 Jordy Steinberg PA Specialist Cardiology 02/24/21 11/11/23 Tami Mario MD Specialist Internal Medicine 10/28/21 Kelly Paul MD [address] [id number] Specialist Neurosurgery 10/28/21 Annia Bolton PA-C [address] [address] Specialist Neurosurgery 10/16/22 Sixto Hopson PA-C 175 [facility] [address] [place] [address] [id number] Specialist Neurosurgery 10/16/22 documented as of this encounter
--- OUTSIDE RECORDS SUMMARY | 2024-09-07 18:13 | XMS_ITS | Clinical Summary ---
Author Organization [facility] Address [address] [place] [address] Care Team Providers Care Auto Transmission Technician Name Role Phone Marjorie Hess MD Unavailable [phone] Tami Mario MD Unavailable Unavailable Kelly Paul MD Unavailable [phone] Tami Mario MD Primary Care Provider Unavaila Annia Morrissey PA-C Unavailable Sixto Hopson PA-C Unavailable [phone] Allergies Active Allergy Reactions Severity Noted Date Comments Eggs Gastritis 03/16/2017 Vioxx Rash/Dermatitis 03/25/2005 On neck Medications Medication Sig Dispensed Refills Start Date End Date Status Cholecalciferol (VITAMIN D) 2000 UNITS Cap Take 5,000 Units by mouth. 0 Active aspirin 81 MG tablet Take 1 Tab by mouth daily. 0 03/16/2017 Active duloxetine (CYMBALTA) 60 MG capsule Take 1 Cap by mouth daily. 90 Cap 1 02/02/2020 Active omeprazole (PRILOSEC) 20 MG capsule Take 1 Cap by mouth daily. 90 Cap 1 02/02/2020 Active ALBUTEROL SULFATE 108 (90 Base) MCG/ACT Aero Soln Inhale 2 Puffs into the lungs every 4 hours as needed (wheezing). 3 Inhaler 0 02/02/2020 Active losartan (COZAAR) 25 MG tabletIndications:Ess ential hypertension TAKE 1 TABLET DAILY 90 tablet 0 01/15/2021 Active atorvastatin (LIPITOR) 40 MG tabletIndications:Cor onary artery disease involving [place] coronary artery with angina pectoris, unspecified whether [place] or transplanted heart (HCC),ST elevation myocardial infarction involving left circumflex coronary artery (HCC) Take 1 tablet by mouth daily. 90 tablet 1 03/07/2021 Active linaCLOtide (Linzess) 72 MCG Cap Take 1 Capsule by mouth daily. 0 04/07/2021 Active Mounjaro 15 MG/0.5ML Solution Pen-injector once a week. 0 10/09/2022 A ctive amitriptyline (ELAVIL) 100 MG tablet Take 1 Tablet by mouth. 0 07/30/2022 Active hydrocortisone 1 % cream Apply topically daily. 0 Active metoprolol (TOPROL-XL) 50 MG 24 hr tablet Take 1 Tablet by mouth daily. 0 11/16/2022 Active Active Problems Problem Noted Date Arthritis 10/16/2022 Class 2 obesity 10/16/2022 Diabetes mellitus 10/16/2022 Hypercholesterolemia 10/16/2022 Obstructive sleep apnea syndrome 023 Seasonal allergies 10/16/2022 Anxiety 10/16/2022 Gallbladder disorder 10/16/2022 Insomnia 10/16/2022 Major depressive disorder, recurrent, mo derate 10/16/2022 Osteoarthritis of one hip, right 022 Sacroiliitis 10/28/2021 Last Assessment & Plan: Patient saw Dr. Paul last October, had right sacroiliitis, right SI joint injection 11/17/2021 that helped her for quite some time. She states a month ago she was getting ready for craft fairs and doing a lot of bending over, it flared up her bilateral SI joint pain, worse on the right than the left, is severe. She states is the same symptoms she had when she saw Dr. Paul a year ago, is hoping to get another right SI joint injection, if possible bilateral SI joint injections if radiologist agrees. She has no new medical issues. Her diabetes has been under good control, her last A1c was 6.3. She has also seen Dr. Gunn in the past for issues with her right hip, states she has a couple labral tears, hip bursitis bilaterally, had a right hip injection around March 2022. Ms. Koki Villa has recurrent right >left sacroiliitis, I will refer her to interventional radiology for injections. She prefers not to go to pain management center or [facility]. I asked her to call with any updates or questions. All questions answered on todays visit. Lumbar degenerative disc disease 022 Last Assessment & Plan: I reviewed this information in detail with Ms. Beckford and though she has evidence of mild degenerative disc disease, this is stable from her prior MRI and I do not believe this is the acute problem. For this as well as the burning thoracic pain likely also from degenerative disc disease weight loss, core strengthening, proper body mechanics and swimming if available. In terms of medication management, she is already on Cymbalta not seeing any relief of the burning pain across thoracic area. I did not wish to make changes in medication but 1 could consider switching the Cymbalta to either gabapentin or Lyrica. Cigarette smoker 10/28/2021 Lymphocytosis 12/24/2020 Tobacco use disorder 01/01/2020 Abdominal aortic aneurysm, Fusiform, Dis ajit; without rupture 11/16/2018 Overview: - Most recent CT angiography of the abdomen pelvis showed maximal dimension of the infrarenal abdominal aorta at 3.9 cm Last Assessment & Plan: At this point, I agree with vascular referral but she is nowhere near the dimension where we would think about repair. Furthermore, she does not do excessively heavy lifting. At this point, I think we can continue yearly screening with ultrasound to minimize radiation. This can be ordered through her PCP or vascular. CAD (coronary artery disease) 04/06/2018 Overview: - ST elevation [place] in February 2017 with cardiac cath at the time showing mild diffuse disease in the left main and LAD, mild diffuse disease in the proximal circumflex with 100% OM1 stenosis (thought to be the culprit), 60% stenosis in the mid circumflex and 60% stenosis in the OM 2, moderate diffuse disease in the RCA- status post PCI with drug-eluting stent to the OM1 - Echocardiogram in 2017 showed normal LV cavity size with mildly increased wall thickness, normal LV systolic function with an EF of 65 to 70%, mild mitral regurgitation, normal RV size and function Last Assessment & Plan: No clear recurrent anginal symptoms. The atypical chest pain she describes does sound musculoskeletal. I asked her to pay attention to see if it gets worse or starts becoming associated with exertion. At this point I am continuing her on current atorvastatin 40 mg at bedtime, baby aspirin, metoprolol. Hypertension 04/28/2016 Last Assessment & Plan: Normally well-controlled on current regimen, continue. 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 Allergic rhinitis, cause unspecified 06/2004 RAD (reactive airway disease) Resolved Problems Problem Noted Date Resolved Date History of heart attack 10/16/2022 11/17/19 24 STEMI (ST elevation myocardial infarction) 03/1611/17/2023 Immunizations Name Administration Dates Next Due COVID-19 (Pfizer) 02/18/2021,07/02/2020,06/12/19 21,06/12/2020 Tdap 09/10/2008 Family History Medical History Relation Name Comments Cancer of the Prostate Brother 1 Allergies Brother 2 bee Alcohol and Other Drug Abuse Brother 3 alcohol Alcohol and Other Drug Abuse Father alcohol Arthritis Father Hypertension Father [place] Father Mental Disorder Father CA Prostate Mother Gallbladder dx 62 Depression Mother Diabetes Mother Glaucoma Mother Hypertension Mother Diabetes Sister 2 CA Breast Negative Hx CA Colon Negative Hx CA Ovarian Negative Hx Uterine Cancer Negative Hx Relation Name Status Comments Brother 1 Alive A&W Brother 2 Brother 3 Daughter Alive A&W Father rheumatoid arth ritis, [place] age 56 Mother HTN, DMII, Gall bladder CA Sister 1 Alive A&W Sister 2 Social History Tobacco Use Types Packs/Day Years Used Date Smoking Tobacco: Every Day Cigarettes 0.5 25 Smokeless Tobacco: Never Tobacco Cessation:Ready to Q uit: Not Asked; Counseling Given: Not Answered Alcohol Use Standard Drinks/Week Comments Yes 0 (1 standard drink = 0.6 oz pur e alcohol) occasionally Sex Assigned at Date Recorded Not on file Job Start Date Occupation Industry Not on file Not on file Not on file Last Filed Vital Signs Vital Sign Reading Time Taken Comments Blood Pressure 144/82 11/17/2023 10:56 AM EDT Pulse 95 11/17/2023 10:56 AM EDT Temperature 36.2 ??C (97.2 ??F) 01/01/2020 10:13 AM E DT Respiratory Rate 12 01/01/2020 10:13 AM EDT Oxygen Saturation 99% 11/17/2023 10:56 AM EDT Inhaled Oxygen Concentration - - Weight 91.4 kg (201 lb 9.6 oz) 11/17/2023 10:56 AM EDT Height 167.6 cm (5' 6 ) 11/17/2023 10:56 AM EDT Body Mass Index 32.54 11/17/2023 10:56 AM EDT Plan of Treatment Health Maintenance Due Date Last Done Comments DIABETES: ANNUAL EYE EXAM 01/14/1984 DIABETES: ANNUAL FOOT EXAM 01/14/1984 DIABETES: ANNUAL URINE PROTE IN TEST (MICROALBUMIN) 01/14/1984 PNEUMOCOCCAL VACCINE FOR HIG H RISK PATIENTS (#1) 1985 SHINGLES VACCINE (1 of 2) 01/14/2016 MAMMOGRAM 09/11/2016 09/12/2015, 08/23 (External Completion), 08/29/2007 (External Completion) CERVICAL CANCER SCREENING 08/18/20182015, 08/29/2007 (External Completion) DTAP/TDAP/TD (2 - Td or Tdap) 09/10/2018 09/10/2008 DIABETES: BLOOD SUGAR CONTRO L TEST (HGBA1C) 04/28/2019 01/27/2019, 01/18/2018, 03/16/2017, Additional history exists DIABETES/HEART DISEASE: JHONY AL CHOLESTEROL (LDL) 01/28/2020 01/27/2019, 01/18/2018, 03/16/2017, Additional history exists BASELINE HEALTH EXAM 40-64 01/27/202101/27, 01/24/2019, 01/18/2018, Additional history exists COLON CANCER SCREENING 07/29/2021 7 (External Completion) TOBACCO CHECK/ADVISE 10/29/2023 10/28/2021, 01/24/2019 (Completed), 08/28/2008 Covid-19 Vaccine (5 - 2023-2 4 season) 2024 02/18/2021, 07/02/2020, 06/12/2020, Additional history exists BMI CHECK/ADVISE 05/24/2024 01/01/2020, 04/2020, 01/24/2019, Additional history exists INFLUENZA (Season Ended) 2025 HEPATITIS C SCREENING Completed 01/18/2018 Care Teams Auto Transmission Technician Relationship Specialty Start Date End Date Tami Mario MD PCP - General Internal Medicine 11/04/21 Marjorie Hess MD Specialist Cardiology 02/24/21 Tami Mario MD Specialist Internal Medicine 10/28/21 Kelly Paul MD 175 [facility] [address] [place] [address] [id number] Specialist Neurosurgery 10/28/21 Annia Bolton PA-C [address] [address] Specialist Neurosurgery 10/16/22 Sixto Hopson PA-C 175 [facility] [address] [place] [address] Specialist Neurosurgery 10/16/22
--- OUTSIDE RECORDS SUMMARY | 2024-09-07 18:13 | XMS_ITS | Encounter Summary ---
Author Organization [facility] Address [address] [place] [address] Care Team Providers Care Hot Molder Name Role Phone Marjorie Hess MD Unavailable [phone] Jordy Steinberg Unavailable Tami Mario MD Unavailable Unavailable Kelly Paul MD Unavailable [phone] Tami Mario MD Primary Care Provider Unavaila Annia Morrissey PA-C Unavailable [phone] Sixto Hopson PA-C Unavailable [phone] Reason for Visit * Reason Onset Date Comments Prior Authorization 11/16/2022 CTA abd and pelvis Encounter Details Date Type Department Care Team Description 11/16/2022 Telephone Adult Medicine [address] [phone] Nakia Mckeon NP Prior Authorization (CTA abd and pelvis) Social History Tobacco Use Types Packs/Day Years Used Date Smoking Tobacco: Every Day Cigarettes 0.5 25 Smokeless Tobacco: Never Alcohol Use Standard Drinks/Week Comments Yes 0 (1 standard drink = 0.6 oz pur e alcohol) occasionally Sex Assigned at Date Recorded Not on file Job Start Date Occupation Industry Not on file Not on file Not on file COVID-19 Exposure Response Date Recorded In the last 10 days, have yo u been in contact with someone who was confirmed or suspected to have Coronavirus/COVID-19? No / Unsure 11/16/2022 12:44 PM EDT documented as of this encounter Miscellaneous Notes * Telephone Encounter - Lashonda Stevens - 11/16/2022 2:45 PM EDT You placed an internal order for CTA abdomen and pelvis. CTA's are not done here. Please place a new external order to be done at [facility]. CPT: 30713. Lashonda Egan [phone] Prior Auth Dept documented in this encounter Plan of Treatment Not on file documented as of this encounter Visit Diagnoses Diagnosis Infrarenal abdominal aortic aneurysm (AAA) without rupture (HCC)- Primary documented in this encounter Care Teams Hot Molder Relationship Specialty Start Date End Date Tami Mario MD PCP - General Internal Medicine 11/04/21 Marjorie Hess MD Specialist Cardiology 02/24/21 Jordy Steinberg PA Specialist Cardiology 02/24/21 11/11/23 Tami Mario MD Specialist Internal Medicine 10/28/21 Kelly Paul MD [address] [address] Specialist Neurosurgery 10/28/21 Annia Bolton PA-C [address] [address] Specialist Neurosurgery 10/16/22 Sixto Hopson PA-C 175 [facility] [address] [place] [address] Specialist Neurosurgery 10/16/22 documented as of this encounter
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
--- OUTSIDE RECORDS SUMMARY | 2024-09-07 18:13 | XMS_ITS | Encounter Summary ---
Author Organization [facility] Address [address] [place] [address] Care Team Providers Care Pilot Control Operator Helper Name Role Phone Tami Mario MD Primary Care Provider Unavaila [facility], Pcp Primary Care Provider UnavailTami Wilson MD Primary Care Provider Unavaila [facility], Pcp Primary Care Provider UnavailMarjorie Dobson MD Unavailable [phone] Jordy Steinberg Unavailable Tami Mario MD Unavailable Unavailable Kelly Paul MD Unavailable [phone] Tami Mario MD Primary Care Provider Unavaila Annia Morrissey PA-C Unavailable [phone] Sixto Hopson PA-C Unavailable [phone] Encounter Details Date Type Department Care Team Description 01/25/2018 Orders Only Medicine/Pediatrics - [address] [phone] Tami Mario MD Elevated alkaline phosphatase level (Primary Dx) Social History Tobacco Use Types Packs/Day Years [...] documented as of this encounter Results * GGTP ENZYME ASSAY (07/27/2018 3:15 PM EST) GAMMA GLUTAMYL TRANSFERASE 43 7 - 64 U/L 07/27/2018 7:21 PM EST [facility] 07/27/2018 3:15 PM EST 07/27/2018 3:17 PM EST Tami Mario MD LAB [facility] [employer] documented in this encounter Visit Diagnoses Diagnosis Elevated alkaline phosphatase level- Primary Other nonspecific abnormal serum enzyme levels documented in this encounter Care Teams Pilot Control Operator Helper Relationship Specialty Start Date End Date Tami Mario MD PCP - General Internal Medicine 06/11/15 08/01/20 [facility], Pcp PCP - General Internal Medicine 08/02/20 08/11/20 Tami Mario MD PCP - General Internal Medicine 08/12/20 09/04/20 [facility], Pcp PCP - General Internal Medicine 09/05/20 11/03/21 Tami Mario MD PCP - General Internal Medicine 11/04/21 Marjorie Hess MD Specialist Cardiology 02/24/21 Jordy Steinberg PA Specialist Cardiology 02/24/21 11/11/23 Tami Mario MD Specialist Internal Medicine 10/28/21 Kelly Paul MD 175 [facility] [address] [place] [address] Specialist Neurosurgery 10/28/21 Annia Bolton PA-C 175 [facility] [address] [place] [address] Specialist Neurosurgery 10/16/22 Sixto Hopson PA-C 175 [facility] [address] [place] [address] Specialist Neurosurgery 10/16/22 documented as of this encounter
--- OUTSIDE RECORDS SUMMARY | 2024-09-07 18:13 | XMS_ITS | Encounter Summary ---
Author Organization [facility] Address [address] [place] [address] Care Team Providers Care Cyber Intel Planner Name Role Phone Marjorie Hess MD Unavailable [phone] Tami Mario MD Unavailable Unavailable Kelly Paul MD Unavailable [phone] Tami Mario MD Primary Care Provider Unavaila Annia Morrissey PA-C Unavailable [phone] Sixto Hopson PA-C Unavailable [phone] Encounter Details Date Type Department Care Team Description 11/17/2023 SCAN Medical Records [address] [place] [id number] [facility] Social History Tobacco Use Types Packs/Day Years [...] on filedocumented in this encounter Care Teams Cyber Intel Planner Relationship Specialty Start Date End Date Tami Mario MD PCP - General Internal Medicine 11/04/21 Marjorie Hess MD Specialist Cardiology 02/24/21 Tami Mario MD Specialist Internal Medicine 10/28/21 Kelly Paul MD [address] [id number] Specialist Neurosurgery 10/28/21 Annia Bolton PA-C [address] [address] Specialist Neurosurgery 10/16/22 Sixto Hopson PA-C 175 [facility] [address] [place] [address] Specialist Neurosurgery 10/16/22 documented as of this encounter
--- OUTSIDE RECORDS SUMMARY | 2024-09-07 18:13 | XMS_ITS | Encounter Summary ---
Author Organization [facility] Address [address] [place] [address] Care Team Providers Care Mechanotherapist Name Role Phone Tami Mario MD Primary Care Provider Unavaila ble [facility], Pcp Primary Care Provider UnavailTami Wilson MD Primary Care Provider Unavaila [facility], Pcp Primary Care Provider UnavailMarjorie Dobson MD Unavailable Jordy Steinberg Unavailable Tami Mario MD Unavailable Unavailable Kelly Paul MD Unavailable [phone] Tami Mario MD Primary Care Provider Unavaila Annia Morrissey PA-C Unavailable [phone] Sixto Hopson PA-C Unavailable [phone] Encounter Details Date Type Department Care Team Description 03/22/2017 Release of Information Medical Records [address] [place] [id number] Abstract, Provider Social History Tobacco Use Types [...] on filedocumented in this encounter Care Teams Mechanotherapist Relationship Specialty Start Date End Date Tami [...] Medicine 10/28/21 Kelly Paul MD [address] [id number] Specialist Neurosurgery 10/28/21 Annia Bolton PA-C [address] [address] Specialist Neurosurgery 10/16/22 Sixto Hopson PA-C [address] [address] Specialist Neurosurgery 10/16/22 documented as of this encounter
== END 2024-09-07 17:22 | disposition home or self-care (01) ==
LOC: HO.HMCFM 15:52
PROVIDERS: PCP Internal Medicine; Visit Provider Physician Assistant Medical
DX: Z00.00 Encounter for general adult medical examination without abnormal findings (principal)

== ENCOUNTER → 2024-09-07 15:51 | Outpatient (BNVA) | payer OTHER, SELFPAY | PROVIDERS: PCP Internal Medicine; Visit Provider Physician Assistant Medical | DX: Z00.00 Encounter for general adult medical examination without abnormal findings (principal); M54.12 Radiculopathy, cervical region; F43.10 Post-traumatic stress disorder, unspecified; F32.A Depression, unspecified | CPT/HCPCS: 96127 ==

== ENCOUNTER 2024-10-02 09:44 | Outpatient (AMB) | payer OTHER, SELFPAY ==
--- NOTE | 2024-10-02 09:47 | A.OFFVIS_ITS ---
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 Her pain has worsened over time, including right-sided neck and back pain. 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 Denies any recent trauma, injury or falls. The main complaint revolves around persistent lower back and SI joint pain, receiving prior treatment via therapeutic injections, bringing good and lasting pain relief. - Onset: Chronic neck and low back pain with exacerbations. - Quality: Constant throbbing, shooting, stabbing, sharp, pinching, tugging, burning, tingling, sore, hurting, aching, heavy, tiring, sickening, radiating and discomfort after activities. Pain is 5-6/10 with activities and 2/10 stationery or resting. - Primary Location: Right-sided back, bilateral SI joints - Radiation: Pain radiates down to the legs; specific mention of back to right>left buttocks and lateral hips. - Aggravating Factors: Sitting in certain positions, unsupportive seating, walking prolonged sitting, changing positions, driving. - Relieving Factors: Multi-modal approaches, relaxation techniques. - Interference: Daily activities, short walks due to severe pain. - Affect: The pain affects the patient?s mood, exacerbating her PTSD and depressive disorder symptoms. Followed by Behavioral Health. - Analgesia: The patient uses acetaminophen regularly; previous bilateral joint injections provided relief. Avoids NSAIDs due to heart conditions, including h/o MIs. - Adverse Effects: None explicitly discussed from current treatments. - Activities of Daily Living: Pain significantly impacts mobility and daily tasks; accommodations needed at work. - Aberrant Drug Related Behaviors: None reported or discussed. [facility] Medical History Back pain GERD (gastroesophageal reflux disease) Diabetes Hx of myocardial infarction (2016) PJ (obstructive sleep apnea) Headache History of trigger finger Osteoarthritis DDD (degenerative disc disease), lumbar Depression Anxiety PTSD (post-traumatic stress disorder) Seasonal allergies Hypercholesteremia Hypertension Abdominal aortic aneurysm Myocardial infarction Surgical History Hx of colonoscopy H/O cardiac catheterization History of carpal tunnel release Hx of heart artery stent (02/2017) Hx of repair of rotator cuff Hx of mastoidectomy (12/2019) Hx of cholecystectomy () History of (11/1995) Social History Household Members: Other Household Members Other:: adult daughter Housing: House Are you a primary day care director to a significant other at home: No Do you presently have visiting nurse or other home services: No 75 years or older and lives alone: No Alcohol intake: never Patient Tobacco Use Status: Former Tobacco user Tobacco use type: Cigarette Cigarette Packs Per Day: 0.5 Years Smoked: 40 e-Cigarette/Vaping Use: Never Used Second Hand Smoke Exposure: No service: Yes Current occupational status: employed Current occupation: [employer], right hand dominant Current occupational exposures/hazards: No Cognitive needs: No Hearing needs: No Vision needs: Yes (glasses) Review of Systems Const Details: - Neurological: Reports chronic cervical neuralgia. Denies bladder or bowel dysfunction or saddle anesthesia. - Psychiatric: Reports PTSD, major depressive disorder. Denies suicidal ideation. - Musculoskeletal: Reports back pain, hip arthritis and bilateral SI joint pain, right >left. - General: Reports weight loss with Mounjaro. - Cardiovascular: Reports history of coronary artery disease and myocardial infarction. Avoids NSAIDs. All systems reviewed & are unremarkable except as noted in HPI and below Physical Exam Vital Signs: Last Vital Signs Pulse 99 10/02/24 09:54 BP 150/70 H 10/02/24 09:54 Pulse Ox 98 10/02/24 09:54 Oxygen Delivery Method Room Air 10/02/24 09:54 BMI result Body Mass Index 33.6 General: Appears afebrile. Alert and oriented. Mood and affect appropriate. Follows and participates in conversation appropriately. Respiratory effort is unlabored. No cough. Able to transition from sit to stand unassisted. Ambulates with bilaterally normal heel strike and toe off. General: Yes no CVA tenderness Back/Spine/Pelvis Other: Patient is able to walk and stand on heels and tip toes with no difficulties demonstrating good motor tone. No limping. Can flex forward to 75-80 degrees and extend to 5-10 degrees before experiencing lumbar pain. Lumbar Demonstrates 5/5 strength of quadriceps bilaterally as well as flexion/dorsiflexion of bilateral feet against resistance. 2+ pedal pulses bilaterally. Straight leg rise with dorsiflexion negative bilaterally. +1 left, diminished on the right patellar and +1 achilles reflexes bilaterally. Facet loading test positive bilaterally. Gia sign, Logan?s, Gaenslen, Pelvic compression and Stinchfield tests are positive bilaterally, right worse than left. No groin pain with I/E hip rotations. Valsalva maneuver negative. Back: no CVA tenderness Cervical Spine: cervical ROM normal, cervical muscular tenderness and No Cervical spine tenderness Thoracic/Lumbar Spine: thoracic and lumbar spine normal to inspection, No Thoracic/lumbar spine scar(s), Lasegue's sign negative, straight leg raise negative bilaterally, pain with thoraco-lumbar ROM, paraspinal muscle tenderness on the right greater than left, thoraco-lumbar ROM limited, No thoracic spinal tenderness and No lumbar spinal tenderness Pelvis: buttock tenderness bilaterally Sacroiliac joints: bilaterally tender to palpation Extrem General: Yes capillary refill normal, Yes no clubbing, cyanosis or edema and Yes no calf tenderness Results Reviewed Results Reviewed: MR CERVICAL SPINE WITHOUT CONTRAST 02/29/24 CLINICAL INFORMATION: Headaches, vertigo, neck pain. COMPARISON: None available. TECHNIQUE: Multiplanar multisequence MR imaging of the cervical spine was done prior to and without the administration IV gadolinium. Examination was performed on a 1.5 Khushboo Siemens unit, using standard sequences. Exam submitted for review 05/02/2024 7:51 AM SPIRAL WEAVER. FINDINGS: CORONAL ALIGNMENT: -Trace levoconvex scoliosis centered at C5. SAGITTAL ALIGNMENT: -Normal lordosis. -No subluxations of significance. CRANIOCERVICAL JUNCTION/C1-2 ARTICULATIONS: -Intact and aligned. -Mild degenerative arthritis. VERTEBRAL BODIES/BONE MARROW: -No compression deformity or bone marrow edema present. -No infiltrating abnormal bone marrow signal. DISCS: -Mild diffuse loss of disc signal. -Mild loss of disc height present C5-6, C6-7 and C7-T1. CERVICAL CORD: -Normal in signal and caliber throughout. There are no regions of cord impingement or myelomalacia identified. PARAVERTEBRAL SOFT TISSUES: -No abnormalities seen. Thyroid is obscured by a saturation band. VISUALIZED INTRACRANIAL STRUCTURES: -Patchy T2 signal hyperintensity in the central ry, nonspecific. This may be secondary to small vessel ischemic change. AXIAL DISC SPACE IMAGING: C2-C3: No central canal or neural foraminal narrowing. C3-C4: Small right lateral disc protrusion without significant mass effect. No central canal narrowing. Mild right neural foraminal narrowing. C4-C5: No significant disc pathology. Mild bilateral uncinate spurring right greater than left. Normal facets. No central canal narrowing. Mild bilateral neural foraminal narrowing. C5-C6: Somewhat irregular bulging disc present, most prominent left lateral region, where there is contact but no flattening of the left aspect of the cord. This results in mild central stenosis and mild left lateral recess stenosis. There is preserved CSF surrounding the cord. There is no cord impingement. Relatively significant right greater than left uncinate spurring present, with mild right greater than left facet spurring, contributing to severe right and moderate to severe left neural foraminal narrowing. C6-C7: No bulging disc with annular fissuring at this level, minimally indenting upon the ventral thecal sac but not contacting the cord. Minimal central canal narrowing. Mild bilateral uncinate spurring left greater than right. Mild right greater than left facet spurring. There is mild to moderate left neural foraminal narrowing. Right neural foramen is patent. C7-T1: Central disc extrusion present, indenting upon the ventral thecal sac, approaching but not definitively contacting the ventral cord (series 8, image 28). This results in mild central canal stenosis. There is preserved CSF signal surrounding the cord. Neural foramen are patent bilaterally without narrowing. T1-T2: There is a central and right far lateral disc extrusion present, only seen in the sagittal plane. This indents upon the ventral thecal sac, but does not contact the cord. There is mild central canal stenosis and mild right lateral recess stenosis. Neural foramen are patent bilaterally. IMPRESSION: 1. Mild spondylosis of the cervical spine without evidence of significant central canal narrowing or cord impingement. No cord signal abnormality. 2. Mild disc degeneration with bulges/herniations at C5-6, C6-7, and C7-T1, and T1-T2 as detailed. 3. Severe right neural foraminal stenosis C5-6, and moderate left. 4. Mild to moderate left neural foraminal narrowing at C6-7. 5. Patchy central pontine T2 signal hyperintensity, nonspecific and most likely on the basis of small vessel ischemic changes. Refer to the dedicated brain MRI. 6. Additional ancillary findings as discussed. 02/08/2024 Assessment & Plan Assessment & Plan (1) DDD (degenerative disc disease), lumbosacral: Code(s): M51.37 - Other intervertebral disc degeneration, lumbosacral region Category: Medical (2) Lumbosacral spondylosis: Code(s): M47.817 - Spondylosis without myelopathy or radiculopathy, lumbosacral region Category: Medical (3) Bilateral hip pain: Code(s): M25.551 - Pain in right hip; M25.552 - Pain in left hip Category: Medical (4) Bilateral primary osteoarthritis of hip: Code(s): M16.0 - Bilateral primary osteoarthritis of hip Category: Medical (5) Sacroiliac joint pain: Code(s): M53.3 - Sacrococcygeal disorders, not elsewhere classified Category: Medical Plan The current plan involves conducting bilateral therapeutic steroidal injections for the SI joints with local and fluoroscopy for chronic SI joint pain with positive provocative testing and reported history of significant pain relief with prior SI joint injections through [facility]. Expectations, risks and benefits were reviewed. Patient is aware she will be contacted to schedule this procedure. Lumbar and hip with pelvic view xrays to assess spinal alignment, degree of degenerative changes, any subluxation, listhesis, compression fractures or pars defects. Should her pain management requirements extend, radiofrequency ablation and PNS trial stands as an advancing possibility attributed to its extensive relief provision. Information pamphlets were provided to patient. Working recommendations on maintaining adaptability within her role through posture discipline, muscle stretching, and workplace ergonomics will empower transition improvements, with continuance on minimal analgesics to manage acute intensities. All questions and concerns have been answered and patient agreed with the plan. Follow up after injections/xray results and sooner as needed. Patient was informed and verbally consented to the use of an ambient scribe for clinic note documentation during this visit. Orders: Orders 2 XR lumbar spine 4V min Today M47.817 - Spondylosis without myelopathy or radiculopathy, lumbosacral region, M51.37 - Other intervertebral disc degeneration, lumbosacral region XR hip BI w PEL1V Today M16.0 - Bilateral primary osteoarthritis of hip, M25.551 - Pain in right hip, M25.552 - Pain in left hip, M53.3 - Sacrococcygeal disorders, not elsewhere classified Coding Level of Care Code New Pt Level 4 (34783) Diagnoses DDD (degenerative disc disease), lumbosacral M51.37 Lumbosacral spondylosis M47.817 Bilateral hip pain M25.551; M25.552 Bilateral primary osteoarthritis of hip M16.0 Sacroiliac joint pain M53.3
[2024-10-02 09:54] VITALS: BP 150/70; PULSE 99; O2SAT 98; BMI 33.6
--- OUTSIDE RECORDS SUMMARY | 2024-10-02 10:03 | XMS_ITS | Encounter Summary ---
Author Organization [facility] Address [address] [place] [address] Care Team Providers Care Lbd Teacher Name Role Phone Tami Mario MD Primary Care Provider Unavaila [facility], Pcp Primary Care Provider UnavailTami Wilson MD Primary Care Provider Unavaila [facility], Pcp Primary Care Provider UnavailMarjorie Dobson MD Unavailable [phone] Jordy Steinberg Unavailable Tami Mario MD Unavailable Unavailable Kelly Paul MD Unavailable [phone] Tami Mario MD Primary Care Provider Unavaila Annia Morrissey PA-C Unavailable [phone] Sixto Hopson PA-C Unavailable [phone] Encounter Details Date Type Department Care Team Description 04/29/2016 Pt. Non Urgent Medical Question Medicine/Pediatrics - [address] [address] Tami Mario MD Social History Tobacco Use [...] I do not wish to go to [place]. Does the [place] [facility] them or should I go to [facility] If it's the latter do I need a referral? At least you have brain to blame for forgetfulness, I'm just old! Thank you, Elin Beckford documented in this encounter Plan of Treatment Not on file documented as of this encounter Visit Diagnoses Not on filedocumented in this encounter Care Teams Lbd Teacher Relationship Specialty Start Date End Date Tami Mario MD PCP - General Internal Medicine 06/11/15 08/01/20 [facility], Pcp PCP - General Internal Medicine 08/02/20 08/11/20 Tami Mario MD PCP - General Internal Medicine 08/12/20 09/04/20 [facility], Pcp PCP - General Internal Medicine 09/05/20 11/03/21 Tami Mario MD PCP - General Internal Medicine 11/04/21 Marjorie Hess MD Specialist Cardiology 02/24/21 Jordy Steinberg PA Specialist Cardiology 02/24/21 11/11/23 Tami Mario MD Specialist Internal Medicine 10/28/21 Kelly Paul MD [address] [address] Specialist Neurosurgery 10/28/21 Annia Bolton PA-C [address] [address] Specialist Neurosurgery 10/16/22 Sixto Hopson PA-C 175 [facility] [address] [place] [address] Specialist Neurosurgery 10/16/22 documented as of this encounter
--- OUTSIDE RECORDS SUMMARY | 2024-10-02 10:03 | XMS_ITS | Encounter Summary ---
Author Organization [facility] Address [address] [place] [address] Care Team Providers Care Technician Automatic Name Role Phone Community, Pcp Primary Care Provider Stanley Baez MD Primary Care Provider Andrzej Garcia MD Primary Care Provider Tami Kendrick MD Primary Care Provider Unavaila [facility], Pcp Primary Care Provider Tami Galindo MD Primary Care Provider Unavaila elpidio [facility], Pcp Primary Care Provider Marjorie Aguiar MD Unavailable [phone] Jordy Steinberg Unavailable Tami Mario MD Unavailable Unavailable Kelly Paul MD Unavailable [phone] Tami Mario MD Primary Care Provider Unavaila Annia MorrisseyC Unavailable [phone] Sixto Hopson-C Unavailable [phone] Encounter Details Date Type Department Care Team Description 10/21/2004 Orders Only OBSIVA Hood [address] [place] [address] Vicky Carrasco [address] [place] [address] ROUTINE GENERAL MEDICAL EXAMINATION AT A HEALTH CARE FACILITY; OTHER MALAISE AND FATIGUE Social History Tobacco Use Types Packs/Day Years Used Date Smoking Tobacco: Never Assessed Sex Assigned at Date Recorded Not on file Job Start Date Occupation Industry Not on file Not on file Not on file documented as of this encounter Plan of Treatment Scheduled Orders Name Type Priority Associated Diagnoses Orde r Schedule VENIPUNCTURE Lab Routine Routine General Medical Examination At A Health Care Facility Ordered: 10/21/2004 documented as of this encounter Procedures Procedure Name Priority Date/Time Associated Diagnosis Comments TSH Routine 10/21/2004 9:05 AM EDT Other Malaise And Fatigue CHG BLOOD COUNT COMPLETE AUTO&AUTO DIFRNTL WBC Routine 10/21/2004 9:05 AM EDT Other Malaise And Fatigue CHG LIPID PANEL Routine 10/21/2004 9:05 AM EDT Routine General Medical Examination At A Health Care Facility CHG COMPREHENSIVE METABOLIC PANEL Routine 10/21/2004 9:05 AM EDT Routine General Medical Examination At A Health Care Facility documented in this encounter Results * TSH (10/21/2004 9:05 AM EDT) TSH 1.39 0.40 - 4.00 uIU/ml [facility] 10/21/2004 9:05 AM EDT 10/21/2004 9:07 AM EDT Vicky Carrasco [facility] * (ABNORMAL) CBC (AUTO DIFF & PLATELET) (10/21/2004 9:05 AM EDT) WHITE BLOOD COUNT 8.0 4.8 - 10.8 x10-3 [facility] RED BLOOD COUNT 4.9(H) 3.8 - 4.8 x10-6 [facility] Hemoglobin 14.4 12.0 - 15.0 g/dL [facility] Hematocrit 41.8 36 - 46 % [facility] MEAN CORPUSCULAR VOLUME 85.7 79 - 98 fl [facility] MEAN CORPUSCULAR HEMOGLOBIN 29.5 27 - 32 pg [facility] MEAN [facility] HGB CONC 34.4 32 - 37 g/dl [facility] RED CELL DISTRIBUTION WIDTH 12.9 11 - 15 % [facility] PLT COUNT 275 130 - 400 x10-3 [facility] NEUTROPHILS % 47 41 - 85 % [facility] LYMPH % 44 15 - 48 % [facility] 10/21/2004 9:05 AM EDT 10/21/2004 9:07 AM EDT Vicky Carrasco LAB Performing Organization Address [place]/ZIP Co de Phone Number [facility] * (ABNORMAL) LIPID PROFILE (10/21/2004 9:05 AM EDT) Cholesterol 182 0 - 200 mg/dL [facility] TRIGLYCERIDES 108 0 - 150 mg/dL [facility] HDL CHOLESTEROL 43 >40 mg/dL [facility] LDL CALCULATED 118(H) 0 - 100 mg/dL [facility] TC-HDLC RATIO 4.2 0 - 4.4 mg/dL [facility] 10/21/2004 9:05 AM EDT 10/21/2004 9:07 AM EDT Vicky Danilo LAB Performing Organization Address [place] de Phone Number [facility] * (ABNORMAL) COMPREHENSIVE METABOLIC PANEL (10/21/2004 9:05 AM EDT) GLUCOSE 101 70 - 110 mg/dL [facility] Blood Urea Nitrogen 10 5 - 25 mg/dL [facility] creatinine 0.8 0.7 - 1.5 mg/dL [facility] BUN/CREATININE RATIO 12.5 6.0 - 20.0 G/dL [facility] Sodium 136 133 - 145 mEq/L [facility] Potassium 5.5(H) 3.5 - 5.2 mEq/L [facility] Chloride 106 96 - 108 mEq/L [facility] CARBON DIOXIDE (CO2) 25.3 21.0 - 32.0 mEq/L [facility] CALCIUM 9.3 8.5 - 10.5 mg/dL [facility] TOTAL PROTEIN (TP) 7.0 6.0 - 8.0 G/dL [facility] Albumin 4.4 3.2 - 5.6 G/dL [facility] GLOBULIN 2.6 1.9 - 4.4 G/dL [facility] ALBUMIN/GLOBULI N RATIO 1.7 1.1 - 2.3 [facility] BILIRUBIN TOTAL 0.3 0.0 - 1.4 mg/dL [facility] AST (SGOT) 18 10 - 42 U/L [facility] ALT (SGPT) 24 10 - 60 U/L [facility] Alk Phos 119 42 - 121 U/L [facility] 10/21/2004 9:05 AM EDT 10/21/2004 9:07 AM EDT Vicky Carrasco [facility] documented in this encounter Visit Diagnoses Diagnosis Routine general medical examination at a health care facility Other malaise and fatigue documented in this encounter Care Teams Technician Automatic Relationship Specialty Start Date End Date Community, Pcp PCP - General 12/17/10 10/01/14 Stanley Mcallister MD PCP - General 09/04/04 12/16/10 Andrzej Marcus MD PCP - General Internal Medicine 10/02/14 06/10/15 Tami Mario MD PCP - General Internal Medicine 06/11/15 08/01/20 [facility], Pcp PCP - General Internal Medicine 08/02/20 08/11/20 Tami Mario MD PCP - General Internal Medicine 08/12/20 09/04/20 [facility], Pcp PCP - General Internal Medicine 09/05/20 11/03/21 Tami Mario MD PCP - General Internal Medicine 11/04/21 Marjorie Hess MD Specialist Cardiology 02/24/21 Jordy Steinberg PA Specialist Cardiology 02/24/21 11/11/23 Tami Mario MD Specialist Internal Medicine 10/28/21 Kelly Paul MD [address] [address] Specialist Neurosurgery 10/28/21 Annia Bolton PA-C [address] [address] Specialist Neurosurgery 10/16/22 Sixto Hopson PA-C [address] [address] Specialist Neurosurgery 10/16/22 documented as of this encounter
--- OUTSIDE RECORDS SUMMARY | 2024-10-02 10:03 | XMS_ITS | Encounter Summary ---
Author Organization [facility] Address [address] [place] [address] Care Team Providers Care Process Development Manager Name Role Phone Tami Mario MD Primary Care Provider Unavaila ble [facility], Pcp Primary Care Provider UnavailTami Wilson MD Primary Care Provider Unavaila [facility], Pcp Primary Care Provider UnavailMarjorie Dobson MD Unavailable [phone] Jordy Steinberg Unavailable Tami Mario MD Unavailable Unavailable Kelly Paul MD Unavailable [phone] Tami Mario MD Primary Care Provider Unavaila Annia Morrissey PA-C Unavailable [phone] Sixto Hopson PA-C Unavailable [phone] Encounter Details Date Type Department Care Team Description 08/09/2015 Release of Information Medical Records [address] [place] [id number] Abstract, Provider Social History Tobacco Use Types Packs/Day Years Used Date Smoking Tobacco: Every Day Cigarettes 1 25 Alcohol Use Standard Drinks/Week Comments Yes [...] on filedocumented in this encounter Care Teams Process Development Manager Relationship Specialty Start Date End Date [...] Internal Medicine 10/28/21 Kelly Paul MD [address] [id number] Specialist Neurosurgery 10/28/21 Annia Bolton PA-C [address] [address] Specialist Neurosurgery 10/16/22 Sixto Hopson PA-C [address] [address] Specialist Neurosurgery 10/16/22 documented as of this encounter
--- OUTSIDE RECORDS SUMMARY | 2024-10-02 10:03 | XMS_ITS | Encounter Summary ---
Author Organization [facility] Address [address] [place] [address] Care Team Providers Care Tree Surgeon Name Role Phone Tami Srivastava MD Primary Care Provider Reason for Visit * Reason Onset Date Comments information needed 09/11/2024 Encounter Details Date Type Department Care Team ([facility] st Contact Info) Description 09/11/2024 Telephone Gastroenterology - [address] [phone] Ashlie Yepez MD [address] [address] information needed Social History Tobacco Use Types Packs/Day Years [...] on file Sexual Orientation Not on file documented as of this encounter Progress Notes * Sarah Rainey - 09/11/2024 11:55 AM EDT Records received from [facility] to book direct colon, missing medication list. Will fax missing sheet and place records in missing accordion. documented in this encounter Plan of Treatment Not on file documented as of this encounter Visit Diagnoses Not on filedocumented in this encounter Care Teams Tree Surgeon Relationship Specialty Start Date End Date Tami Srivastava MD [address] [place] [id number] PCP - General Internal Medicine 09/11/24 documented as of this encounter
--- OUTSIDE RECORDS SUMMARY | 2024-10-02 10:03 | XMS_ITS | Encounter Summary ---
Author Organization [facility] Address [address] [place] [address] Care Team Providers Care Lubricating Machine Tender Name Role Phone Tami Mario MD Primary Care Provider Unavaila ble [facility], Pcp Primary Care Provider Unavailabl Tami Christian MD Primary Care Provider Unavaila [facility], Pcp Primary Care Provider UnavailMarjorie Dobson MD Unavailable [phone] Jordy Steinberg Unavailable Tami Mario MD Unavailable Unavailable Kelly Paul MD Unavailable [phone] Tami Mario MD Primary Care Provider Unavaila Annia Morrissey PA-C Unavailable [phone] Sixto Hopson PA-C Unavailable [phone] Encounter Details Date Type Department Care Team Description 06/19/2016 Transfer Table Operator Helper Report Medical Records [address] [place] [address] Ashlie Yepez MD Social History Tobacco Use [...] on filedocumented in this encounter Care Teams Lubricating Machine Tender Relationship Specialty Start Date End Date Tami Mario MD PCP - General Internal Medicine 06/11/15 08/01/20 [facility], Pcp PCP - General Internal Medicine 08/02/20 08/11/20 Tami Mario MD PCP - General Internal Medicine 08/12/20 09/04/20 [facility], Pcp PCP - General Internal Medicine 09/05/20 11/03/21 Tami Mario MD PCP - General Internal Medicine 11/04/21 Marjorie Hess MD Specialist Cardiology 02/24/21 Jordy Steinberg PA Specialist Cardiology 02/24/21 11/11/23 Tami Mario MD Specialist Internal Medicine 10/28/21 Kelly Paul MD [address] [address] Specialist Neurosurgery 10/28/21 Annia Bolton PA-C [address] [address] Specialist Neurosurgery 10/16/22 Sixto Hopson PA-C 175 [facility] [address] [place] [address] Specialist Neurosurgery 10/16/22 documented as of this encounter
--- OUTSIDE RECORDS SUMMARY | 2024-10-02 10:03 | XMS_ITS | Encounter Summary ---
Author Organization [facility] Address [address] [place] [address] Care Team Providers Care Concrete Engineer Name Role Phone [facility], Pcp Primary Care Provider UnavailMarjorie Dobson MD Unavailable [phone] Jordy Steinberg Unavailable Tami Mario MD Unavailable Unavailable Kelly Paul MD Unavailable [phone] Tami Mario MD Primary Care Provider Unavaila Annia MorrisseyC Unavailable [phone] Sixot Hopson PA-C Unavailable [phone] Encounter Details Date Type Department Care Team Description 05/28/2021 Telephone Cardio PVCA Diag Testing 101 300 [facility] [address] [place] [address] [id number] Jordy Steinberg PA [address] [place] [address] [id number] Social History Tobacco Use Types Packs/Day Years Used Date Smoking Tobacco: Every Day Cigarettes 0.5 25 Smokeless Tobacco: Never Alcohol Use Standard Drinks/Week Comments Yes 0 (1 standard drink = 0.6 oz pur e alcohol) rare Sex Assigned at Date Recorded Not on file Job Start Date Occupation Industry Not on file Not on file Not on file documented as of this encounter Miscellaneous Notes * Telephone Encounter - Eileen Montemayor C.M.A. - 06/03/2021 4:29 PM EST Informed patient of Cholesterol results per Jordy. * Telephone Encounter - KATIE Gongora - 05/28/2021 12:58 PM EST Good afternoon, please let the patient know that I reviewed her most recent cholesterol panel have all improved. At this time, if she is tolerating the atorvastatin 40 mg once a day we can continue her current dose. Her triglycerides were slightly elevated. She can try avoiding fatty foods and/or sa turated sugars along with exercise. She can also consider [id number] omega-3 supplements. Thanks. Jordy documented in this encounter Plan of Treatment Not on file documented as of this encounter Visit Diagnoses Not on filedocumented in this encounter Care Teams Concrete Engineer Relationship Specialty Start Date End Date [facility]cp PCP - General Internal Medicine 09/05/20 11/03/21 Tami Mario MD PCP - General Internal Medicine 11/04/21 Marjorie Hess MD Specialist Cardiology 02/24/21 Jordy Steinberg PA Specialist Cardiology 02/24/21 11/11/23 Tami Mario MD Specialist Internal Medicine 10/28/21 Kelly Paul MD [address] [address] Specialist Neurosurgery 10/28/21 Annia Bolton PA-C [address] [address] Specialist Neurosurgery 10/16/22 Sixto Hopson PA-C [address] [address] Specialist Neurosurgery 10/16/22 documented as of this encounter
--- OUTSIDE RECORDS SUMMARY | 2024-10-02 10:03 | XMS_ITS | Encounter Summary ---
Author Organization [facility] Address [address] [place] [address] Care Team Providers Care Middle School Humanities Teacher Name Role Phone Tami Mario MD Primary Care Provider Unavaila ble [facility], Pcp Primary Care Provider UnavailTami Wilson MD Primary Care Provider Unavaila [facility], Pcp Primary Care Provider UnavailMarjorie Dobson MD Unavailable [phone] Jordy Steinberg Unavailable Tami Mario MD Unavailable Unavailable Kelly Paul MD Unavailable [phone] Tami Mario MD Primary Care Provider Unavaila Annia Morrissey PA-C Unavailable [phone] Sixto Hopson PA-C Unavailable [phone] Encounter Details Date Type Department Care Team Description 06/30/2019 Hospital Medical Records [address] [place] [address] Social History Tobacco Use Types Packs/Day Years [...] on filedocumented in this encounter Care Teams Middle School Humanities Teacher Relationship Specialty Start Date End Date Tami Mario MD PCP - General Internal Medicine 06/11/15 08/01/20 [facility], Pcp PCP - General Internal Medicine 08/02/20 08/11/20 Tami Mario MD PCP - General Internal Medicine 08/12/20 09/04/20 [facility], Pcp PCP - General Internal Medicine 09/05/20 11/03/21 Tami Mario MD PCP - General Internal Medicine 11/04/21 Marojrie Hess MD Specialist Cardiology 02/24/21 Jordy Steinberg PA Specialist Cardiology 02/24/21 11/11/23 Tami Mario MD Specialist Internal Medicine 10/28/21 Kelly Paul MD [address] [id number] Specialist Neurosurgery 10/28/21 Annia Bolton PA-C [address] [address] Specialist Neurosurgery 10/16/22 Sixto Hopson PA-C [address] [address] Specialist Neurosurgery 10/16/22 documented as of this encounter
--- OUTSIDE RECORDS SUMMARY | 2024-10-02 10:03 | XMS_ITS | Encounter Summary ---
Author Organization [facility] Address [address] [place] [address] Care Team Providers Care Compression Molding Machine Tender Name Role Phone [facility], Pcp Primary Care Provider UnavailMarjorie Dobson MD Unavailable [phone] Jordy Steinberg Unavailable Tami Mario MD Unavailable Unavailable Kelly Paul MD Unavailable [phone] Tami Mario MD Primary Care Provider UnavailAnnia Casillas-C Unavailable Sixto Hopson-C Unavailable [phone] Reason for Visit * Reason Comments E-prescribe Rx Request Encounter Details Date Type Department Care Team Description 01/09/2021 Refill Cardio PVC POC 154 300 [facility] [address] [place] [address] Keke Krueger NP [address] [facility] [address] [place] [address] E-prescribe Rx Request Social History Tobacco Use Types Packs/Day Years [...] encounter Miscellaneous Notes * Telephone Encounter - Elvia Verdin R.N. - 01/15/2021 9:38 AM EDT Losartan refill sent electronically. Pt is overdue for an OV. Please arrange. Thanks. documented in this encounter Plan of Treatment Not on file documented as of this encounter Visit Diagnoses Diagnosis Essential hypertension Unspecified essential hypertension documented in this encounter Care Teams Compression Molding Machine Tender Relationship Specialty Start Date End Date [facility], Pcp PCP - General Internal Medicine 09/05/20 11/03/21 Tami Mario MD PCP - General Internal Medicine 11/04/21 Marjorie Hess MD Specialist Cardiology 02/24/21 Jordy Steinberg PA Specialist Cardiology 02/24/21 11/11/23 Tami Mario MD Specialist Internal Medicine 10/28/21 Kelly Paul MD [address] [address] Specialist Neurosurgery 10/28/21 Annia Bolton PA-C [address] [address] Specialist Neurosurgery 10/16/22 Sixto Hopson PA-C [address] [address] Specialist Neurosurgery 10/16/22 documented as of this encounter
--- OUTSIDE RECORDS SUMMARY | 2024-10-02 10:03 | XMS_ITS | Encounter Summary ---
Author Organization [facility] Address [address] [place] [address] Care Team Providers Care Ferry Operator Name Role Phone Tami Mario MD Primary Care Provider Unavaila ble [facility], Pcp Primary Care Provider UnavailTami Wilson MD Primary Care Provider Unavaila [facility], Pcp Primary Care Provider UnavailMarjorie Dobson MD Unavailable [phone] Jordy Steinberg Unavailable Tami Mario MD Unavailable Unavailable Kelly Paul MD Unavailable [phone] Tami Mario MD Primary Care Provider Unavaila ble Annia BoltonC Unavailable [phone] Sixto Hopson-C Unavailable [phone] Reason for Visit * Reason Onset Date Comments Testing 07/01/2016 Encounter Details Date Type Department Care Team Description 07/01/2016 Telephone Radiology - [address] [id number] Varsha Pate MD Testing Social History Tobacco Use Types Packs/Day Years [...] encounter Miscellaneous Notes * Telephone Encounter - Cat Arguello - 07/01/2016 12:58 PM EST Pt was contacted several times in 2015 to schedule the SONO EXAM, HYSTEROSONOGRAPHY. Pt is refusingexam. Order will be removed at this time and will need to be replaced if needed in the future. Thank you, Radiology documented in this encounter Plan of Treatment Not on file documented as of this encounter Visit Diagnoses Not on filedocumented in this encounter Care Teams Ferry Operator Relationship Specialty Start Date End Date Taim Mario MD PCP - General Internal Medicine 06/11/15 08/01/20 [facility], Pcp PCP - General Internal Medicine 08/02/20 08/11/20 Tami Mario MD PCP - General Internal Medicine 08/12/20 09/04/20 [facility], Pcp PCP - General Internal Medicine 09/05/20 11/03/21 Tami Mario MD PCP - General Internal Medicine 11/04/21 Marjorie Hess MD Specialist Cardiology 02/24/21 Jordy Steinberg PA Specialist Cardiology 02/24/21 11/11/23 Tami Mario MD Specialist Internal Medicine 10/28/21 Kelly Paul MD [address] [address] Specialist Neurosurgery 10/28/21 Annia Bolton PA-C [address] [address] Specialist Neurosurgery 10/16/22 Sixto Hopson PA-C 175 [facility] [address] [place] [address] Specialist Neurosurgery 10/16/22 documented as of this encounter
--- OUTSIDE RECORDS SUMMARY | 2024-10-02 10:03 | XMS_ITS | Encounter Summary ---
Author Organization [facility] Address [address] [place] [address] Care Team Providers Care Emergency Department Rn Name Role Phone Tami Mario MD Primary Care Provider Unavaila [facility], Pcp Primary Care Provider UnavailTami Wilson MD Primary Care Provider Unavaila [facility], Pcp Primary Care Provider UnavailMarjorie Dobson MD Unavailable [phone] Jordy Steinberg Unavailable Tami Mario MD Unavailable Unavailable Kelly Paul MD Unavailable [phone] Tami Mario MD Primary Care Provider Unavaila Annia Morrissey PA-C Unavailable [phone] Sixto Hopson PA-C Unavailable [phone] Encounter Details Date Type Department Care Team Description 12/15/2019 Sand Caster Apprentice Report Medical Records [address] [place] [address] Marjorie Hess MD [address] [place], [place] [id number] Social History Tobacco Use Types Packs/Day Years [...] on filedocumented in this encounter Care Teams Emergency Department Rn Relationship Specialty Start Date End Date Tami Mario MD PCP - General Internal Medicine 06/11/15 08/01/20 [facility], Pcp PCP - General Internal Medicine 08/02/20 08/11/20 Tami Mario MD PCP - General Internal Medicine 08/12/20 09/04/20 [facility], Pcp PCP - General Internal Medicine 09/05/20 11/03/21 Tami Mario MD PCP - General Internal Medicine 11/04/21 Marjorie Hess MD Specialist Cardiology 02/24/21 Jordy Steinberg PA Specialist Cardiology 02/24/21 11/11/23 Tami Mario MD Specialist Internal Medicine 10/28/21 Kelly Paul MD 175 [facility] [address] [place] [address] Specialist Neurosurgery 10/28/21 Annia Bolton PA-C 175 [facility] [address] [place] [address] Specialist Neurosurgery 10/16/22 Sixto Hopson PA-C 175 [facility] [address] [place] [address] Specialist Neurosurgery 10/16/22 documented as of this encounter
--- OUTSIDE RECORDS SUMMARY | 2024-10-02 10:03 | XMS_ITS | Encounter Summary ---
Author Organization [facility] Address [address] [place] [address] Care Team Providers Care Data Processing Specialist Name Role Phone Community, Pcp Primary Care Provider UnavailMarjorie Dobson MD Unavailable [phone] Jordy Steinberg Unavailable Tami Mario MD Unavailable Unavailable Kelly Paul MD Unavailable [phone] Tami Mario MD Primary Care Provider UnavailAnnia Casillas PA-C Unavailable [phone] Sixto Hopson PA-C Unavailable [phone] Encounter Details Date Type Department Care Team Description 02/17/2021 SCAN Medical Records [address] [place] [address] Abstract, Provider Social History Tobacco Use Types [...] Date/Time Associated Diagnosis Comments OUTSIDE LAB Routine 02/17/2021 documented in this encounter Results * OUTSIDE LAB (02/17/2021) Provider Abstract LAB documented in this encounter Visit Diagnoses Not on filedocumented in this encounter Care Teams Data Processing Specialist Relationship Specialty Start Date End Date [facility], Pcp PCP - General Internal Medicine 09/05/20 11/03/21 Tami Mario MD PCP - General Internal Medicine 11/04/21 Marjorie Hess MD Specialist Cardiology 02/24/21 Jordy Steinberg PA Specialist Cardiology 02/24/21 11/11/23 Tami Mario MD Specialist Internal Medicine 10/28/21 Kelly Paul MD [address] [address] Specialist Neurosurgery 10/28/21 Annia Bolton PA-C [address] [address] Specialist Neurosurgery 10/16/22 Sixto Hopson PA-C 175 [facility] [address] [place] [address] Specialist Neurosurgery 10/16/22 documented as of this encounter
--- OUTSIDE RECORDS SUMMARY | 2024-10-02 10:03 | XMS_ITS | Encounter Summary ---
Author Organization [facility] Address [address] [place] [address] Care Team Providers Care Facilities Operator Name Role Phone [facility], Pcp Primary Care Provider UnavailMarjorie Dobson MD Unavailable [phone] Jordy Steinberg Unavailable Tami Mario MD Unavailable Unavailable Kelly Paul MD Unavailable [phone] Tami Mario MD Primary Care Provider UnavailAnnia Casillas PA-C Unavailable [phone] Sixto Hopson PA-C Unavailable [phone] Encounter Details Date Type Department Care Team Description 08/04/2021 SCAN Medical Records [address] [place] [address] Abstract, Provider Social History Tobacco Use Types [...] on filedocumented in this encounter Care Teams Facilities Operator Relationship Specialty Start Date End Date [facility], Pcp PCP - General Internal Medicine 09/05/20 11/03/21 Tami Mario MD PCP - General Internal Medicine 11/04/21 Marjorie Hess MD Specialist Cardiology 02/24/21 Jordy Steinberg PA Specialist Cardiology 02/24/21 11/11/23 Tami Mario MD Specialist Internal Medicine 10/28/21 Kelly Paul MD [address] [address] Specialist Neurosurgery 10/28/21 Annia Bolton PA-C [address] [address] Specialist Neurosurgery 10/16/22 Sixto Hopson PA-C 175 [facility] [address] [place] [address] Specialist Neurosurgery 10/16/22 documented as of this encounter
--- OUTSIDE RECORDS SUMMARY | 2024-10-02 10:03 | XMS_ITS | Encounter Summary ---
Author Organization [facility] Address [address] [place] [address] Care Team Providers Care Military Administrative Technician Name Role Phone Tami Mario MD Primary Care Provider Unavaila ble [facility], Pcp Primary Care Provider UnavailTami Wilson MD Primary Care Provider Unavaila [facility], Pcp Primary Care Provider UnavailMarjorie Dobson MD Unavailable [phone] Jordy Steinberg Unavailable Tami Mario MD Unavailable Unavailable Kelly Paul MD Unavailable [phone] Tami Mario MD Primary Care Provider Unavaila Annia Morrissey PA-C Unavailable [phone] Sixto Hopson PA-C Unavailable [phone] Encounter Details Date Type Department Care Team Description 03/23/2019 Substance Abuse Nurse Report Medical Records [address] [place] [address] Paulina White NP Social History Tobacco Use [...] on filedocumented in this encounter Care Teams Military Administrative Technician Relationship Specialty Start Date End Date [...] Internal Medicine 10/28/21 Kelly Paul MD [address] [address] Specialist Neurosurgery 10/28/21 Annia Bolton PA-C [address] [address] Specialist Neurosurgery 10/16/22 Sixto Hopson PA-C 175 [facility] [address] [place] [address] Specialist Neurosurgery 10/16/22 documented as of this encounter
--- OUTSIDE RECORDS SUMMARY | 2024-10-02 10:03 | XMS_ITS | Encounter Summary ---
Author Organization [facility] Address [address] [place] [address] Care Team Providers Care Construction Checker Name Role Phone Tami Mario MD Primary Care Provider Unavaila ble [facility], Pcp Primary Care Provider UnavailTami Wilson MD Primary Care Provider Unavaila [facility], Pcp Primary Care Provider UnavailMarjorie Dobson MD Unavailable Jordy Steinberg Unavailable Tami Mario MD Unavailable Unavailable Kelly Paul MD Unavailable [phone] Tami Mario MD Primary Care Provider Unavaila Annia Morrissey PA-C Unavailable [phone] Sixto Hopson PA-C Unavailable [phone] Encounter Details Date Type Department Care Team Description 03/09/2017 Hospital Medical Records [address] [place] [address] Ashish Mckinley MD Social History Tobacco Use Types Packs/Day [...] on filedocumented in this encounter Care Teams Construction Checker Relationship Specialty Start Date End Date Tami [...] Medicine 10/28/21 Kelly Paul MD [address] [address] Specialist Neurosurgery 10/28/21 Annia Bolton PA-C [address] [address] Specialist Neurosurgery 10/16/22 Sixto Hospon PA-C 175 [facility] [address] [place] [address] Specialist Neurosurgery 10/16/22 documented as of this encounter
--- OUTSIDE RECORDS SUMMARY | 2024-10-02 10:04 | XMS_ITS | Encounter Summary ---
Author Organization [facility] Address [address] [place] [address] Care Team Providers Care Cd Storage And Materials Make Up Helper Name Role Phone Marjorie Hess MD Unavailable [phone] Jordy Steinberg Unavailable Tami Mario MD Unavailable Unavailable Kelly Paul MD Unavailable [phone] Tami Mario MD Primary Care Provider Unavaila Annia Morrissey PA-C Unavailable [phone] Sixto Hopson PA-C Unavailable [phone] Reason for Visit * Reason Onset Date Comments Prior Authorization 11/16/2022 CTA abd and pelvis Encounter Details Date Type Department Care Team Description 11/16/2022 Telephone Adult Medicine [address] [id number] Nakia Mckeon NP Prior Authorization (CTA abd [...] new external order to be done at [facility]. CPT: 47303. Lashonda Egan [phone] Prior Auth Dept documented in this encounter Plan of Treatment Not on file documented as of this encounter Visit Diagnoses Diagnosis Infrarenal abdominal aortic aneurysm (AAA) without rupture (HCC)- Primary documented in this encounter Care Teams Cd Storage And Materials Make Up Helper Relationship Specialty Start Date End Date Tami Mario MD PCP - General Internal Medicine 11/04/21 Marjorie Hess MD Specialist Cardiology 02/24/21 Jordy Steinberg PA Specialist Cardiology 02/24/21 11/11/23 Tami Mario MD Specialist Internal Medicine 10/28/21 Kelly Paul MD [address] [address] Specialist Neurosurgery 10/28/21 Annia Bolton PA-C [address] [address] Specialist Neurosurgery 10/16/22 Sixto Hopson PA-C 175 [facility] [address] [place] [address] Specialist Neurosurgery 10/16/22 documented as of this encounter
--- OUTSIDE RECORDS SUMMARY | 2024-10-02 10:04 | XMS_ITS | Encounter Summary ---
Author Organization [facility] Address [address] [place] [address] Care Team Providers Care Food And Drug Research Scientist Name Role Phone Marjorie Hess MD Unavailable [phone] Jordy Steinberg Unavailable Tami Mario MD Unavailable Unavailable Kelly Paul MD Unavailable [phone] Tami Mario MD Primary Care Provider Unavaila Annia Morrissey PA-C Unavailable Sixto Hopson PA-C Unavailable Encounter Details Date Type Department Care Team Description 10/22/2022 [facility] Neurosurgery [place] [address] [address] Annia Bolton PA-C [address] [id number] Social History Tobacco Use Types Packs/Day Years [...] on filedocumented in this encounter Care Teams Food And Drug Research Scientist Relationship Specialty Start Date End Date Tami Mario MD PCP - General Internal Medicine 11/04/21 Marjorie Hess MD Specialist Cardiology 02/24/21 Jordy Steinberg PA Specialist Cardiology 02/24/21 11/11/23 Tami Mario MD Specialist Internal Medicine 10/28/21 Kelly Paul MD [address] [address] Specialist Neurosurgery 10/28/21 Annia Bolton PA-C [address] [address] Specialist Neurosurgery 10/16/22 Sixto Hopson PA-C [address] [address] Specialist Neurosurgery 10/16/22 documented as of this encounter
--- OUTSIDE RECORDS SUMMARY | 2024-10-02 10:04 | XMS_ITS | Encounter Summary ---
Author Organization [facility] Address [address] [place] [address] Care Team Providers Care Customer Liaison Name Role Phone Marjorie Hess MD Unavailable [phone] Tami Mario MD Unavailable Unavailable Kelly Paul MD Unavailable [phone] Tami Mario MD Primary Care Provider Unavaila Annia Morrissey PA-C Unavailable [phone] Sixto Hopson PA-C Unavailable [phone] Encounter Details Date Type Department Care Team Description 11/17/2023 SCAN Medical Records [address] [place] [address] [facility] Social History Tobacco Use Types Packs/Day Years [...] on filedocumented in this encounter Care Teams Customer Liaison Relationship Specialty Start Date End Date Tami Mario MD PCP - General Internal Medicine 11/04/21 Marjorie Hess MD Specialist Cardiology 02/24/21 Tami Mario MD Specialist Internal Medicine 10/28/21 Kelly Paul MD [address] [id number] Specialist Neurosurgery 10/28/21 Annia Bolton PA-C [address] [address] Specialist Neurosurgery 10/16/22 Sixto Hopson PA-C 175 [facility] [address] [place] [address] Specialist Neurosurgery 10/16/22 documented as of this encounter
--- OUTSIDE RECORDS SUMMARY | 2024-10-02 10:04 | XMS_ITS | Encounter Summary ---
Author Organization [facility] Address [address] [place] [address] Care Team Providers Care Typesetting Machine Operator/Tender Name Role Phone Community, Pcp Primary Care Provider UnavailMarjorie Dobson MD Unavailable [phone] Jordy Steinberg Unavailable Tami Mario MD Unavailable Unavailable Kelly Paul MD Unavailable [phone] Tami Mario MD Primary Care Provider UnavailAnnia Casillas PA-C Unavailable [phone] Sixto Hopson PA-C Unavailable [phone] Encounter Details Date Type Department Care Team Description 10/31/2021 Release of Information Medical Records [address] [place] [address] Abstract, Provider Social History Tobacco Use Types [...] on filedocumented in this encounter Care Teams Typesetting Machine Operator/Tender Relationship Specialty Start Date End Date Community, Pcp PCP - General Internal Medicine 09/05/20 11/03/21 Tami Mario MD PCP - General Internal Medicine 11/04/21 Marjorie Hess MD Specialist Cardiology 02/24/21 Jordy Steinberg PA Specialist Cardiology 02/24/21 11/11/23 Tami Mario MD Specialist Internal Medicine 10/28/21 Kelly Paul MD 175 [facility] [address] [place], [place] [id number] Specialist Neurosurgery 10/28/21 Annia Bolton PA-C 175 [facility] [address] [place] [address] Specialist Neurosurgery 10/16/22 Sixto Hopson PA-C 175 [facility] [address] [place] [address] Specialist Neurosurgery 10/16/22 documented as of this encounter
--- OUTSIDE RECORDS SUMMARY | 2024-10-02 10:04 | XMS_ITS | Encounter Summary ---
Author Organization [facility] Address [address] [place] [address] Care Team Providers Care Zoo Director Name Role Phone Marjorie Hess MD Unavailable [phone] Jordy Steinberg Unavailable Tami Mario MD Unavailable Unavailable Kelly Paul MD Unavailable [phone] Tami Mario MD Primary Care Provider Unavaila Annia Morrissey PA-C Unavailable [phone] Sixto Hopson PA-C Unavailable [phone] Encounter Details Date Type Department Care Team Description 01/27/2023 Pt. Non Urgent Medic al Question Cardio PVC POC [address] [facility] [address] [place] [address] Nakia Mckeon NP Social History Tobacco Use Types Packs/Day [...] on filedocumented in this encounter Care Teams Zoo Director Relationship Specialty Start Date End Date Tami Mario MD PCP - General Internal Medicine 11/04/21 Marjorie Hess MD Specialist Cardiology 02/24/21 Jordy Steinberg PA Specialist Cardiology 02/24/21 11/11/23 Tami Mario MD Specialist Internal Medicine 10/28/21 Kelly Paul MD [address] [phone] Specialist Neurosurgery 10/28/21 Annia Bolton PA-C [address] [address] Specialist Neurosurgery 10/16/22 Sixto Hopson PA-C 175 [facility] [address] [place] [address] [id number] Specialist Neurosurgery 10/16/22 documented as of this encounter
--- OUTSIDE RECORDS SUMMARY | 2024-10-02 10:04 | XMS_ITS | Clinical Summary ---
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 I asked her to call [...] artery disease) 04/06/2018 Overview: - ST elevation [place] in February 2017 with cardiac cath at [...] Abuse Father alcohol Arthritis Father Hypertension Father [place] Father Mental Disorder Father CA Prostate Mother Gallbladder dx 62 Depression Mother Diabetes Mother Glaucoma Mother Hypertension Mother Diabetes Sister 2 CA Breast Negative Hx CA Colon Negative Hx CA Ovarian Negative Hx Uterine Cancer Negative Hx Relation Name Status Comments Brother 1 Alive A&W Brother 2 Brother 3 Daughter Alive A&W Father rheumatoid arth ritis, [place] age 56 Mother HTN, DMII, Gall bladder [...] HEPATITIS C SCREENING Completed 01/18/2018 Care Teams Manager Summer Relationship Specialty Start Date End Date Tami Mario MD PCP - General Internal Medicine 11/04/21 Marjorie Hess MD Specialist Cardiology 02/24/21 Tami Mario MD Specialist Internal Medicine 10/28/21 Kelly Paul MD 175 [facility] [address] [place] [address] [phone] Specialist Neurosurgery 10/28/21 Annia Bolton PA-C [address] [address] Specialist Neurosurgery 10/16/22 Sixto Hopson PA-C 175 [facility] [address] [place] [address] Specialist Neurosurgery 10/16/22
--- OUTSIDE RECORDS SUMMARY | 2024-10-02 10:04 | XMS_ITS | Encounter Summary ---
Author Organization [facility] Address [address] [place] [address] Care Team Providers Care Executive Director Of Nursing Name Role Phone Marjorie Hess MD Unavailable [phone] Jordy Steinberg Unavailable Tami Mario MD Unavailable Unavailable Kelly Paul MD Unavailable [phone] Tami Mario MD Primary Care Provider Unavaila Annia Morrissey PA-C Unavailable Sixto Hopson PA-C Unavailable Encounter Details Date Type Department Care Team Description 11/18/2021 [facility] Neurosurgery [place] [address] [address] Kelly Paul MD [address] [address] Social History Tobacco Use Types Packs/Day Years [...] Recorded In the last 10 days, have letitia u been in contact with someone who was confirmed or suspected to have Coronavirus/COVID-19? No / Unsure 11/04/2021 8:53 AM EDT documented as of this encounter Plan of Treatment Not on file documented as of this encounter Visit Diagnoses Not on filedocumented in this encounter Care Teams Executive Director Of Nursing Relationship Specialty Start Date End Date Tami Mario MD PCP - General Internal Medicine 11/04/21 Marjorie Hess MD Specialist Cardiology 02/24/21 Jordy Steinberg PA Specialist Cardiology 02/24/21 11/11/23 Tami Mario MD Specialist Internal Medicine 10/28/21 Kelly Paul MD [address] [address] Specialist Neurosurgery 10/28/21 Annia Bolton PA-C [address] [address] Specialist Neurosurgery 10/16/22 Sixto Hopson PA-C [address] [address] Specialist Neurosurgery 10/16/22 documented as of this encounter
--- OUTSIDE RECORDS SUMMARY | 2024-10-02 10:04 | XMS_ITS | Clinical Summary ---
Author Organization [facility] Address [address] [place] [address] Care Team Providers Care Farm Forestry And Garden Workers Name Role Phone Tami Srivastava MD Primary Care Provider [phone] Allergies Active Allergy Reactions Criticality Noted Date [...] Zoster (Shingles) Vaccine (1 of 2) 01/14/2016 COVID-19 Vaccine (1 - 2023- season) 2024 Influenza Vaccine 12/22/2024 Insurance [employer] HMO Advance Directives * Full Code (Latest Code Status on File) Date Activated Date Inactivated Comments 01/09/2020 12:05 PM Care Teams Farm Forestry And Garden Workers Relationship Specialty Start Date End Date Tami Srivastava MD [address] [place] [address] [id number] PCP - General Primary Care-Scan 01/02/20
--- OUTSIDE RECORDS SUMMARY | 2024-10-02 10:04 | XMS_ITS | Clinical Summary ---
Author Organization [facility] Address [address] [place] [address] Care Team Providers Care Trade Sales Assistant Name Role Phone Tami Srivastava MD Primary Care Provider [phone] Allergies Active Allergy Reactions Criticality Noted Date [...] skin. 0 Active ergocalciferol (VITAMIN D2) capsule 90043 units Take 50,000 Units by mouth once a week. 0 Active Aspirin Buf,IbSxmj-OuIkpk-HhC , 81 MG TABS Take 1 tablet [...] MG tablet 50 mg. 0 03/09/2017 Act kaal metoprolol tartrate (LOPRESSOR) 50 MG tablet Take [...] to complete this topic [facility] Corporate Other 11/17/[address]UNEZ [address] [place] [address] Daryn-Rubio ,Elin Personal/Family Self [address] [place] [phone] [facility] Corporate Other 11/17/[address]IRIAM [address]UNEZ [address] Care Teams Trade Sales Assistant Relationship Specialty Start Date End Date Tami Srivastava MD PCP - General Internal Medicine 12/24/20
--- OUTSIDE RECORDS SUMMARY | 2024-10-02 10:04 | XMS_ITS | Encounter Summary ---
Author Organization [facility] Address [address] [place] [address] Care Team Providers Care Life Skills Worker Name Role Phone Tami Mario MD Primary Care Provider Unavaila [facility], Pcp Primary Care Provider UnavailTami [place] MD Primary Care Provider Unavaila [facility], Pcp Primary Care Provider UnavailMarjorie Dobson MD Unavailable [phone] Jordy Steinberg Unavailable Tami Mario MD Unavailable Unavailable Kelly Paul MD Unavailable [phone] Tami Mario MD Primary Care Provider Unavaila Annia Morrissey PA-C Unavailable [phone] Sixto Hopson PA-C Unavailable [phone] Encounter Details Date Type Department Care Team Description 01/25/2018 Orders Only Medicine/Pediatrics - [address] [phone] Tami Mario MD Elevated alkaline phosphatase level [...] PM EST Tami Mario MD LAB [facility] Zipnosis documented in this encounter Visit Diagnoses Diagnosis Elevated alkaline phosphatase level- Primary Other nonspecific abnormal serum enzyme levels documented in this encounter Care Teams Life Skills Worker Relationship Specialty Start Date End Date Tami Mario MD PCP - General Internal Medicine 06/11/15 08/01/20 [facility], Pcp PCP - General Internal Medicine 08/02/20 08/11/20 Tami Mario MD PCP - General Internal Medicine 08/12/20 09/04/20 [facility], Pcp PCP - General Internal Medicine 09/05/20 11/03/21 Tami Mario MD PCP - General Internal Medicine 11/04/21 Marjorie Hess MD Specialist Cardiology 02/24/21 Jordy Steinberg PA Specialist Cardiology 02/24/21 11/11/23 Tami Mario MD Specialist Internal Medicine 10/28/21 Kelly Paul MD 175 [facility] [address] [place] [address] Specialist Neurosurgery 10/28/21 Annia Bolton PA-C 175 [facility] [address] [place] [address] Specialist Neurosurgery 10/16/22 Sixto Hopson PA-C 175 [facility] [address] [place] [address] Specialist Neurosurgery 10/16/22 documented as of this encounter
--- OUTSIDE RECORDS SUMMARY | 2024-10-02 10:04 | XMS_ITS | Encounter Summary ---
Author Organization [facility] Address [address] [place] [address] Care Team Providers Care Insurance Risk Surveyor Name Role Phone Tami Mario MD Primary Care Provider Unavaila ble [facility], Pcp Primary Care Provider UnavailTami [place] MD Primary Care Provider Unavaila [facility], Pcp Primary Care Provider UnavailMarjorie Dobson MD Unavailable [phone] Jordy Steinberg Unavailable Tami Mario MD Unavailable Unavailable Kelly Paul MD Unavailable [phone] Tami Mario MD Primary Care Provider Unavaila Annia Morrissey PA-C Unavailable [phone] Sixto Hopson PA-C Unavailable [phone] Encounter Details Date Type Department Care Team Description 07/27/2018 Sewing Machine Operator Semiautomatic Report Medical Records [address] [place] [address] Erin Sanchez Social History Tobacco Use Types Packs/Day Years [...] on filedocumented in this encounter Care Teams Insurance Risk Surveyor Relationship Specialty Start Date End Date Tami [...] Medicine 10/28/21 Kelly Paul MD [address] [address] Specialist Neurosurgery 10/28/21 Annia Bolton PA-C [address] [address] Specialist Neurosurgery 10/16/22 Sixto Hopson PA-C 175 [facility] [address] [place] [address] Specialist Neurosurgery 10/16/22 documented as of this encounter
--- OUTSIDE RECORDS SUMMARY | 2024-10-02 10:04 | XMS_ITS | Encounter Summary ---
Author Organization [facility] Address [address] [place] [address] Care Team Providers Care Reconciliation Accountant Name Role Phone Marjorie Hess MD Unavailable [phone] Jordy Steinberg Unavailable Tami Mario MD Unavailable Unavailable Kelly Paul MD Unavailable [phone] Tami Mario MD Primary Care Provider Unavaila Annia Morrissey PA-C Unavailable [phone] Sixto Hopson PA-C Unavailable [phone] Encounter Details Date Type Department Care Team Description 08/02/2023 Transfer Records Vascular Surgery - [address] [place] [address] Records, Transfer Social History Tobacco [...] on filedocumented in this encounter Care Teams Reconciliation Accountant Relationship Specialty Start Date End Date Tami Mario MD PCP - General Internal Medicine 11/04/21 Marjorie Hess MD Specialist Cardiology 02/24/21 Jordy Steinberg PA Specialist Cardiology 02/24/21 11/11/23 Tami Mario MD Specialist Internal Medicine 10/28/21 Kelly Paul MD [address] [phone] Specialist Neurosurgery 10/28/21 Annia Bolton PA-C [address] [address] Specialist Neurosurgery 10/16/22 Sixto Hopson PA-C 175 [facility] [address] [place] [address] [phone] Specialist Neurosurgery 10/16/22 documented as of this encounter
--- OUTSIDE RECORDS SUMMARY | 2024-10-02 10:04 | XMS_ITS | Encounter Summary ---
Author Organization [facility] Address [address] [place] [address] Care Team Providers Care Spring Winder Name Role Phone Marjorie Hess MD Unavailable [phone] Jordy Steinberg Unavailable Tami Mario MD Unavailable Unavailable Kelly Paul MD Unavailable [phone] Tami Mario MD Primary Care Provider Unavaila Annia Morrissey PA-C Unavailable [phone] Sixto Hopson PA-C Unavailable [phone] Reason for Referral * INTERNAL (Routine) - [facility]: No Auth Needed/Booked Specialty Diagnoses / Procedures Referred By Contac t Referred To Contact Vascular Surgery Diagnoses Abdominal aortic aneurysm (AAA) without rupture, unspecified part (HCC) Procedures REFERRAL TO VASCULAR SURGERY (IN NETWORK) Marjorie Hess MD [address] [place] [address] Vascular Surg/Spld [address] [facility] [address] [place] [phone] Referral ID Status Reason Start Date Expiration Date V isits Requested Visits Authorized [id number] PVCA: No Auth Needed/[place] 07/28/2023 07/27/2024 1 1 Reason for Visit * Reason Onset Date Comments Orders Call 07/26/2023 Encounter Details Date Type Department Care Team Description 07/26/2023 Telephone Cardio PVC [facility] [address] [facility] [address] [place] [address] Marjorie Hess MD [address] [place] [address] [phone] Orders Call Social History Tobacco Use Types Packs/Day Years [...] encounter Miscellaneous Notes * Telephone Encounter - Erika Gomez PA-C - 07/29/2023 8:20 AM EST I understand that. I am trying to streamline her care because Dr. Knowles will be wanting a repeat CTA abd/pelvis. Her last one was in November 2022 based on my review * Telephone Encounter - Sowmya Bran - 07/29/2023 8:07 AM EST Pt already had the CTA Abd/Pel done. Are you ordering another one? When I spoke with Dr. Knowles's office they were only looking for a referral order for pt to be seen. Dr. Hess placed that order. Please advise * Telephone Encounter - Erika Gomez PA-C - 07/28/2023 4:40 PM EST CTA abd/pelvis ordered in preparation for visit with Dr. Knowles, please see telephone encounter from 03/2023. * Telephone Encounter - Marjorie Hess MD - 07/28/2023 3:49 PM EST Done. * Telephone Encounter - Sowmya Bran - 07/26/2023 12:[address] Hess would you want to put in the referral request for pt to be seen by Vascular Surgery, 's office? * Telephone Encounter - Sowmya Bran - 07/26/2023 12:51 PM EST I called Dr. Knowles's office for clarification of this message. I was told they are not looking forthe CTA order they are requesting that a provider put in a referral for pt to be seen by Dr. Knowles. I will forward request to the provider. * Telephone Encounter - Nisha Escalante - 07/26/2023 10:59 AM EST Patient calling stating she spoke with Vascular, Dr Delcid office and they need the orders for herCTA scans. . Patient can be reached at [phone] documented in this encounter Plan of Treatment Scheduled Orders Name Type Priority Associated Diagnoses Orde r Schedule CHG ASSAY OF UREA NITROGEN QUANTITATIVE Lab Routine Abdominal aortic aneurysm (AAA) without rupture, unspecified part (HCC) Expected: 07/28/2023, Expires: 07/27/2024 CHG CREATININE BLOOD Lab Routine Abdominal aortic aneurysm (AAA) without rupture, unspecified part (HCC) Expected: 07/28/2023, Expires: 07/27/2024 documented as of this encounter Visit Diagnoses Diagnosis Abdominal aortic aneurysm (AAA) without rupture, unspecified part (HCC)- Primary documented in this encounter Care Teams Spring Winder Relationship Specialty Start Date End Date Tami Mario MD PCP - General Internal Medicine 11/04/21 Marjorie Hess MD Specialist Cardiology 02/24/21 Jordy Steinberg PA Specialist Cardiology 02/24/21 11/11/23 Tami Mario MD Specialist Internal Medicine 10/28/21 Kelly Paul MD [address] [phone] Specialist Neurosurgery 10/28/21 Annia Bolton PA-C [address] [address] Specialist Neurosurgery 10/16/22 Sixto Hopson PA-C [address] [phone] Specialist Neurosurgery 10/16/22 documented as of this encounter
== END 2024-10-02 10:28 | disposition home or self-care (01) ==
PROVIDERS: PCP Internal Medicine; Referring Provider Physician Assistant Medical; Visit Provider Nurse Practitioner Family
DX: M51.370 Other intervertebral disc degeneration, lumbosacral region with discogenic back pain only (principal); M47.817 Spondylosis without myelopathy or radiculopathy, lumbosacral region; M25.551 Pain in right hip; M25.552 Pain in left hip; M16.0 Bilateral primary osteoarthritis of hip; M53.3 Sacrococcygeal disorders, not elsewhere classified
CPT/HCPCS: 99204

== ENCOUNTER 2024-10-02 09:44 | Outpatient (REF) | payer OTHER, SELFPAY ==
--- NOTE | ~2024-10-02 | XR_ITS ---
EXAMINATION: XR HIP 2 OR MORE VIEWS BILATERAL HISTORY: M25.551 - Pain in right hip COMPARISON: There are no prior studies for comparison. FINDINGS: A single AP view of the pelvis and two views of each hip are submitted. Osseous mineralization is normal. There is no fracture or dislocation. The joint space is maintained. The soft tissues are unremarkable. XR/XR hip BI w PEL1V IMPRESSION: Unremarkable examination of the bilateral hips. Electronically signed by: Anant Yun MD 10/02/2024 12:51 PM EDT
--- NOTE | ~2024-10-02 | XR_ITS ---
EXAMINATION: X-ray lumbar spine. CLINICAL INFORMATION: Intervertebral disc degeneration, lumbosacral. TECHNIQUE: AP oblique and lateral views. COMPARISON: None FINDINGS: Facet joint hypertrophy bilaterally at L4-5 and L5-S1. Endplate sclerosis at multiple levels of the lower thoracic and lumbar spine. Grade 1 anterolisthesis L4-5. Grade 1 retrolisthesis L3-4. No acute cortical disruption. Vascular calcifications, aorta and to the left side of the lumbar spine no fully evaluated. XR/XR lumbar spine 4V min IMPRESSION: Multilevel thoracolumbar spondylosis resulting in grade 1 anterolisthesis L4-5 and grade 1 retrolisthesis L3-4. Atherosclerosis disease. Electronically signed by: Seth Vyas MD 10/02/2024 12:52 PM EDT
[2024-10-02 10:52] LABS: MANUAL DIFF FLAG NO
[2024-10-02 11:24] LABS: Basophils Absolute Auto 0.1 X10*3/uL (0.0-0.2); Basophils Percent Auto 0.9 % (0-2); Eosinophils Absolute Auto 0.2 X10*3/uL (0.0-0.4); Eosinophils Percent Auto 2.2 % (0-4); Hematocrit 41.3 % (37.0-47.0); Imm Gran Abs Auto 0.01 X10*3/uL (0.00-0.03); Imm Gran Pct Auto 0.1 % (0.0-0.4); Lymphocytes Absolute Auto 3.1 X10*3/uL (1.2-4.9); Lymphocytes Percent Auto 44.7 % (20-40); Mean Corpuscular HGB Conc 33.9 g/dl (31.0-35.0); Mean Corpuscular Hemoglobin 29.5 pg (27.0-33.0); Mean Corpuscular Volume 87.1 fL (80.0-98.0); Mean Platelet Volume 9.2 fL (9.4-12.3); Monocytes Absolute Auto 0.4 X10*3/uL (0.1-1.2); Monocytes Percent Auto 5.8 % (2-11); Neutrophils Absolute Auto 3.2 x10*3/uL (2.0-8.3); Neutrophils Percent Auto 46.3 % (45-73); Platelet Count 246 X10*3/uL (160-400); Red Blood Count 4.74 X10*6/uL (4.20-5.50); Red Cell Distribution Width 13.2 % (11.0-16.0); White Blood Count 6.9 X10*3/uL (4.8-10.8)
--- OUTSIDE RECORDS SUMMARY | 2024-10-02 11:24 | XMS_ITS | Clinical Summary ---
Author Organization [facility] Address [address] [place] [address] Care Team Providers Care Mineral Economist Name Role Phone Tami Srivastava MD Primary Care Provider [phone] Allergies Active Allergy Reactions Criticality Noted Date [...] Inactivated Comments 01/09/2020 12:05 PM Care Teams Mineral Economist Relationship Specialty Start Date End Date Tami Srivastava MD [address] [place] [address] [phone] PCP - General Primary Care-Scan 01/02/20
--- OUTSIDE RECORDS SUMMARY | 2024-10-02 11:24 | XMS_ITS | Encounter Summary ---
Author Organization [facility] Address [address] [place] [address] Care Team Providers Care Hot Mill Worker Name Role Phone Tami Srivastava MD Primary Care Provider [phone] Reason for Visit * Reason Onset Date Comments information needed 09/11/2024 Encounter Details Date Type Department Care Team ([facility] st Contact Info) Description 09/11/2024 Telephone Gastroenterology - [address] [phone] Ashlie Yepez MD [address] [address] information needed Social History Tobacco Use Types [...] 09/11/2024 11:55 AM EDT Records received from [facility] to book direct colon, missing medication list. Will fax missing sheet and place records in missing accordion. documented in this encounter Plan of Treatment Not on file documented as of this encounter Visit Diagnoses Not on filedocumented in this encounter Care Teams Hot Mill Worker Relationship Specialty Start Date End Date Tami Srivastava MD [address] [place] [address] PCP - General Internal Medicine 09/11/24 documented as of this encounter
--- OUTSIDE RECORDS SUMMARY | 2024-10-02 11:25 | XMS_ITS | Clinical Summary ---
Author Organization [facility] Address [address] [place] [address] Care Team Providers Care Spectrograph Operator Name Role Phone Tami Srivastava MD Primary Care Provider [phone] Encounters Date Type Department Care Team Description 09/11/2024 Telephone Gastroenterology - [address] [address] Ashlie Yepez MD information needed from Last 3 Months Immunizations Name Administration Dates Next Due Pfizer [...] airway disease) AAA (abdominal aortic aneury sm) (CMS/HCC V24) DX:AAA (abdominal aortic ane urysm) (HCC); COMMENT: 3.2 cm Family History Medical History [...] Daughter Alive A&W Father rheumatoid arth ritis, [place] age 56 Mother HTN, DMII, Gall bladder [...] Contro l Test (HGBA1C) 07/08/2023 COVID-19 Vaccine (2023-06 5 season) 2024 02/18/2021, 07/02/2020, 06/12/2020 Influenza [...] patient's age to complete this topic Insurance [facility] Care Teams Spectrograph Operator Relationship Specialty Start Date End Date Tami Srivastava MD [address] [place] [phone] PCP - General Internal Medicine 09/11/24
--- OUTSIDE RECORDS SUMMARY | 2024-10-02 11:25 | XMS_ITS | Clinical Summary ---
Author Organization [facility] Address [address] [place] [address] Care Team Providers Care Knot Tier Name Role Phone Tami Srivastava MD Primary Care Provider [phone] Allergies Active Allergy Reactions Criticality Noted Date [...] skin. 0 Active ergocalciferol (VITAMIN D2) capsule 36246 units Take 50,000 Units by mouth once a week. 0 Active Aspirin Buf,GyNicl-WkEysc-KsZ , 81 MG TABS Take 1 tablet [...] to complete this topic [facility] Corporate Other 11/17/[address]Z [address] [place] [address] Daryn-Rubio ,Elin Personal/Family Self [address] [place] [phone] [facility] Corporate Other 11/17/1979 MIRIAM [address]UNEZ [address] Care Teams Knot Tier Relationship Specialty Start Date End Date Tami Srivastava MD PCP - General Internal Medicine 12/24/20
[2024-10-02 11:36] LABS: Estimated Average Glucose 114 mg/dL; Hemoglobin A1C 137.0752 umol/L; Hemoglobin A1c % 5.6 % (<6.0); Total Hemoglobin (HGBA1C) 3664.7946 umol/L
[2024-10-02 11:57] LABS: Alanine Aminotransferase 25 U/L (0-31); Albumin Level 4.3 g/dL (3.5-5.0); Anion Gap 9 (12-20); Aspartate Amino Transferase 22 U/L (5-31); Bilirubin Total 0.3 mg/dL (0.0-1.0); Blood Urea Nitrogen 12 mg/dL (9-16); Calcium 9.6 mg/dL (8.4-10.2); Carbon Dioxide 29 mmol/L (22-29); Chloride 102 mmol/L (96-108); Cholesterol 159 mg/dL (<200); Estimated Glomerular Filt Rate > 60; Glucose Random 100 mg/dL (60-115); HDL Cholesterol 45 mg/dL (>40); LDL Cholesterol Calculated 80 mg/dL (<100); Sodium 136 mmol/L (135-145); Total Protein 6.9 g/dL (6.5-8.0); Triglycerides 170 mg/dL (<150)
[2024-10-02 12:23] LABS: Alkaline Phosphatase 161 U/L (39-117)
== END 2024-10-02 09:45 | disposition home or self-care (01) ==
LOC: HO.XRAY 09:44
PROVIDERS: PCP Internal Medicine; Referring Provider Physician Assistant Medical; Visit Provider Nurse Practitioner Family
DX: M47.817 Spondylosis without myelopathy or radiculopathy, lumbosacral region (principal); H92.01 Otalgia, right ear; G89.29 Other chronic pain; M79.2 Neuralgia and neuritis, unspecified; H92.09 Otalgia, unspecified ear; M51.370 Other intervertebral disc degeneration, lumbosacral region with discogenic back pain only; M25.551 Pain in right hip; M25.552 Pain in left hip; M16.0 Bilateral primary osteoarthritis of hip; M53.3 Sacrococcygeal disorders, not elsewhere classified; Z13.1 Encounter for screening for diabetes mellitus; Z13.6 Encounter for screening for cardiovascular disorders
CPT/HCPCS: 36415; 72110; 73521; 80053; 80061; 83036; 85025

== ENCOUNTER → 2024-10-02 10:56 | Outpatient (BNV) | payer OTHER, SELFPAY | PROVIDERS: PCP Internal Medicine; Referring Provider Physician Assistant Medical; Visit Provider Radiology Diagnostic Radiology | DX: M47.815 Spondylosis without myelopathy or radiculopathy, thoracolumbar region (principal); I70.90 Unspecified atherosclerosis; M25.551 Pain in right hip | CPT/HCPCS: 72110; 73521 ==

== ENCOUNTER 2024-10-19 06:33 | Outpatient (REF) | payer OTHER, SELFPAY ==
--- NOTE | ~2024-10-19 | FL_ITS ---
EXAMINATION: FL GUIDANCE ONLY HISTORY: M53.3 - Sacrococcygeal disorders, not elsewhere classified COMPARISON: None available. TECHNIQUE: Fluoroscopy time: 0.2 minutes. Cumulative Dose: 4.20 mGy. DAP: 0.0353 mGym2 Images: 3. FINDINGS: Fluoroscopic spot films of the pelvis demonstrate needles in the regions of the bilateral sacroiliac joints. FL/FL guidance in treatment room IMPRESSION: Fluoroscopy during procedure. Please see procedure report for additional information. Electronically signed by: Anant Yun MD 10/19/2024 02:33 PM EDT
== END 2024-10-19 06:34 | disposition home or self-care (01) ==
LOC: CF 06:33
PROVIDERS: Visit Provider Internal Medicine
DX: M53.3 Sacrococcygeal disorders, not elsewhere classified (principal)
CPT/HCPCS: 27096; J2003; J2795; J3301

== ENCOUNTER 2024-10-19 12:39 | Outpatient (AMB) | payer OTHER, SELFPAY ==
--- NOTE | 2024-10-19 12:44 | MHC.OFFVIS ---
Vital Signs 10/19/24 12:45 10/19/24 13:37 BP 118/58 L 130/51 L Blood Pressure Location Lt brachial Lt brachial Position Sitting Sitting Respiration 15 15 Pulse 94 92 Pulse Source Pulse Oximeter Pulse Oximeter Pulse Oximetry (%) 100 99 Oxygen Delivery Method Room Air Room Air Intake Visit Reasons: Stone theraputic SIJ inj Classification Control Clerk Required: No Allergies rofecoxib [From Vioxx] Allergy (Mild, Verified 10/19/24 12:45) Rash HPI HPI Stone theraputic SIJ inj: Details: Patient presents for scheduled procedure. Denies any recent cough, cold, infection, fever or other significant changes in medical history since last office visit. [facility] Medical History Back pain GERD (gastroesophageal reflux disease) Diabetes Hx of myocardial infarction (2016) JP (obstructive sleep apnea) Headache History of trigger finger Osteoarthritis DDD (degenerative disc disease), lumbar Depression Anxiety PTSD (post-traumatic stress disorder) Seasonal allergies Hypercholesteremia Hypertension Abdominal aortic aneurysm Myocardial infarction Surgical History Hx of colonoscopy H/O cardiac catheterization History of carpal tunnel release Hx of heart artery stent (02/2017) Hx of repair of rotator cuff Hx of mastoidectomy (12/2019) Hx of cholecystectomy (~1996) History of (11/1995) Social History Household Members: Other Household Members Other:: adult daughter Housing: House Are you a primary care assistant to a significant other at home: No Do you presently have visiting nurse or other home services: No 75 years or older and lives alone: No Alcohol intake: never Patient Tobacco Use Status: Former Tobacco user Tobacco use type: Cigarette Cigarette Packs Per Day: 0.5 Years Smoked: 40 e-Cigarette/Vaping Use: Never Used Second Hand Smoke Exposure: No service: Yes Current occupational status: employed Current occupation: [employer], right hand dominant Current occupational exposures/hazards: No Cognitive needs: No Hearing needs: No Vision needs: Yes (glasses) Physical Exam Vital Signs: Last Vital Signs Pulse 94 10/19/24 12:45 Resp 15 10/19/24 12:45 BP 118/58 L 10/19/24 12:45 Pulse Ox 100 10/19/24 12:45 Oxygen Delivery Method Room Air 10/19/24 12:45 Office Procedures AMB Joint Injection/Aspiration Joint Injection/Aspiration Details: Sacroiliac Joint Injection, Bilateral The procedure, its benefits, and its risks were explained and written informed consent was obtained from the patient. Immediately prior to starting the procedure, a time-out safety check was conducted. The patient's identification, procedure name, procedure site, and procedure laterality were confirmed with the patient. ? Patient was placed prone on the fluoroscopy table and the lumbosacral area was prepped using ChloraPrep and draped with sterile drapein standard fashion. The C-arm was rotated in a contralateral oblique fashion until the medial border of the iliac crest no longer foreshadowed the posterior sacroiliac joint line. The skin and subcutaneous tissue was anesthetized using 1 mL of 0.75% plain lidocaine with 1.5-inch 25-gauge needle in the middle region of the joint line.?A 3.5-inch 22-gauge spinal needle with small bend on the tip was slowly advanced towards the joint line, coaxial to the x-ray beam. Once bony content was obtained, the needle was easily slid into the intra-articular space.?Intra-articular needle position was confirmed using lateral fluoroscopy.?A total volume of 2.5mL of solution containing 40 mg triamcinolone and rest 0.5% ropivacaine was injected intra-articularly. The stylet was reinserted and needle was removed. The same process was repeated on the other side. The patient tolerated the procedure well. Patient denied any lower extremity weakness or numbness. Patient was observed for 30 min and was discharged after fulfilling the standard discharge criteria. Coding 59827 - Sacroiliac (Bilateral) Procedure code (CPT) selection complete Assessment & Plan Assessment & Plan (1) Sacroiliac joint pain: Code(s): M53.3 - Sacrococcygeal disorders, not elsewhere classified Category: Medical Plan Patient is status post bilateral intra-articular therapeutic SI joint injections. Patient tolerated procedure well and was discharged home in stable condition with discharge instructions. All questions were answered. We will follow-up via telephone or in clinic to assess response to therapy. A follow-up appointment was made during today's visit. Orders: Orders FL guidance in treatment room Today M53.3 - Sacrococcygeal disorders, not elsewhere classified Coding Level of Care Code Procedure Only Diagnoses Sacroiliac joint pain M53.3 CPT Codes Coding - Joint 9: 51369 - Sacroiliac ([id number])
[2024-10-19 12:45] VITALS: BP 118/58; PULSE 94; RESP 15; O2SAT 100
[2024-10-19 13:37] VITALS: BP 130/51; PULSE 92; RESP 15; O2SAT 99
== END 2024-10-19 13:38 | disposition home or self-care (01) ==
LOC: HO.PMCPRC 12:39
PROVIDERS: PCP Internal Medicine; Visit Provider Internal Medicine
DX: M53.3 Sacrococcygeal disorders, not elsewhere classified (principal)
CPT/HCPCS: 27096

== ENCOUNTER 2024-11-16 14:55 | Outpatient (AMB) | payer OTHER, SELFPAY ==
[2024-11-16 15:16] VITALS: BP 112/55; PULSE 94; O2SAT 99; BMI 33.3
--- NOTE | 2024-11-16 15:16 | A.OFFVIS_ITS ---
Vital Signs 3 11/16/24 15:16 Height 5 ft 6 in Weight 206 lb 2 oz BMI 33.3 BP 112/55 L Blood Pressure Location Lt brachial Position Sitting Pulse 94 Pulse Source Pulse Oximeter Pulse Oximetry (%) 99 Oxygen Delivery Method Room Air Intake Visit Reasons: s/p miya theraputic SIJ inj Intake Note: Pain today 0/10 Brownell Operator Required: No Accompanied by: Self / Same As Patient Allergies rofecoxib (From Vioxx) Allergy (Mild, Verified 11/16/24 15:21) Rash HPI Comments Details: The patient is a 59-year-old female presenting with chronic hip pain. The pain is primarily located in the right hip and has been persistent since 2018, with an initial onset following childbirth in 1995. The patient reports that the pain is constant and rates it as a 5 out of 10 in severity. The patient has a history of osteoarthritis, which has been confirmed through previous imaging studies, although recent x-rays were unremarkable. Previous interventions include hip injections, which provided temporary relief, but the pain has since returned. The patient also reports a partial tear in the gluteus minimus muscle and bursitis, which exacerbate her chronic right hip pain. The patient has undergone multiple imaging studies, including MRIs and arthrograms, primarily conducted at [facility] and [facility]. The patient has also experienced multilevel spinal arthritis, which was noted in a back x-ray showing minimal slippage from L3 to L5. The patient reports that recent SI joint injections have provided complete pain relief for back-related symptoms. Past Procedures: 10/19/24: Bilateral Therapeutic SI joint injections-100% ongoing pain relief PRIOR: The patient is a 59-year-old female with history of cervical radiculopathy, trigeminal nerve injury, abdominal aortic aneurysm, and cervical and lumbar degenerative disc disease, chronic sacroiliac joint pain, bilateral hip osteoarthritis, knee pain, PTSD and major depressive disorder, diabetes (A1C=5.8), presents today for evaluation of SI joint pain and discussion for interventional treatment options. Her pain has worsened over time, including right-sided neck and back pain. 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 Denies any recent trauma, injury or falls. The main complaint revolves around persistent lower back and SI joint pain, receiving prior treatment via therapeutic injections, bringing good and lasting pain relief. - Onset: Chronic neck and low back pain with exacerbations. - Quality: Constant throbbing, shooting, stabbing, sharp, pinching, tugging, burning, tingling, sore, hurting, aching, heavy, tiring, sickening, radiating and discomfort after activities. Pain is 5-6/10 with activities and 2/10 stationery or resting. - Primary Location: Right-sided back, bilateral SI joints - Radiation: Pain radiates down to the legs; specific mention of back to right>left buttocks and lateral hips. - Aggravating Factors: Sitting in certain positions, unsupportive seating, walking prolonged sitting, changing positions, driving. - Relieving Factors: Multi-modal approaches, relaxation techniques. - Interference: Daily activities, short walks due to severe pain. - Affect: The pain affects the patient?s mood, exacerbating her PTSD and depressive disorder symptoms. Followed by Behavioral Health. - Analgesia: The patient uses acetaminophen regularly; previous bilateral joint injections provided relief. Avoids NSAIDs due to heart conditions, including h/o MIs. - Adverse Effects: None explicitly discussed from current treatments. - Activities of Daily Living: Pain significantly impacts mobility and daily tasks; accommodations needed at work. - Aberrant Drug Related Behaviors: None reported or discussed. [facility] Medical History Back pain GERD (gastroesophageal reflux disease) Diabetes Hx of myocardial infarction (2016) PJ (obstructive sleep apnea) Headache History of trigger finger Osteoarthritis DDD (degenerative disc disease), lumbar Depression Anxiety PTSD (post-traumatic stress disorder) Seasonal allergies Hypercholesteremia Hypertension Abdominal aortic aneurysm Myocardial infarction Surgical History Hx of colonoscopy H/O cardiac catheterization History of carpal tunnel release Hx of heart artery stent (02/2017) Hx of repair of rotator cuff Hx of mastoidectomy (12/2019) Hx of cholecystectomy (~1996) History of (11/1995) Social History Household Members: Other Household Members Other:: adult daughter Housing: House Are you a primary child care supervisor to a significant other at home: No Do you presently have visiting nurse or other home services: No 75 years or older and lives alone: No Alcohol intake: never Patient Tobacco Use Status: Former Tobacco user Tobacco use type: Cigarette Cigarette Packs Per Day: 0.5 Years Smoked: 40 e-Cigarette/Vaping Use: Never Used Second Hand Smoke Exposure: No service: Yes Current occupational status: employed Current occupation: [employer], right hand dominant Current occupational exposures/hazards: No Cognitive needs: No Hearing needs: No Vision needs: Yes (glasses) Review of Systems Const Details: - Musculoskeletal: Reports chronic right hip pain, occasional groin pain, and multilevel spinal arthritis. - Neurological: Denies instability or leg giving out. All systems reviewed & are unremarkable except as noted in HPI and below Physical Exam Vital Signs: Last Vital Signs Pulse 94 11/16/24 15:16 BP 112/55 L 11/16/24 15:16 Pulse Ox 99 11/16/24 15:16 Oxygen Delivery Method Room Air 11/16/24 15:16 BMI result Body Mass Index 33.3 General: Appears afebrile. Alert and oriented. Mood and affect appropriate. Follows and participates in conversation appropriately. Respiratory effort is unlabored. No cough. Able to transition from sit to stand unassisted. Ambulates with bilaterally normal heel strike and toe off. General: Yes no CVA tenderness Back/Spine/Pelvis Other: Patient is able to walk and stand on heels and tip toes with no difficulties demonstrating good motor tone. No limping. Can flex forward to 75-80 degrees and extend to 5-10 degrees before experiencing lumbar pain. Lumbar Demonstrates 5/5 strength of quadriceps bilaterally as well as flexion/dorsiflexion of bilateral feet against resistance. 2+ pedal pulses bilaterally. Straight leg rise with dorsiflexion negative bilaterally. +1 left, diminished on the right patellar and +1 achilles reflexes bilaterally. Facet loading test positive bilaterally. Gia sign, Logan?s, Gaenslen, Pelvic compression and Stinchfield tests are positive bilaterally. Minimal right groin pain with I/E hip rotations. Moderate TTP to right GTB area. Valsalva maneuver is negative. Back: no CVA tenderness Cervical Spine: cervical ROM normal, cervical muscular tenderness and No Cervical spine tenderness Thoracic/Lumbar Spine: thoracic and lumbar spine normal to inspection, No Thoracic/lumbar spine scar(s), Lasegue's sign negative, straight leg raise negative bilaterally, pain with thoraco-lumbar ROM, paraspinal muscle tenderness on the right greater than left, thoraco-lumbar ROM limited, No thoracic spinal tenderness and No lumbar spinal tenderness Pelvis: buttock tenderness bilaterally Sacroiliac joints: bilaterally tender to palpation Extrem General: Yes capillary refill normal, Yes no clubbing, cyanosis or edema and Yes no calf tenderness Results Reviewed Results Reviewed: MR CERVICAL SPINE WITHOUT CONTRAST 02/29/24 CLINICAL INFORMATION: Headaches, vertigo, neck pain. COMPARISON: None available. TECHNIQUE: Multiplanar multisequence MR imaging of the cervical spine was done prior to and without the administration IV gadolinium. Examination was performed on a 1.5 Khushboo Siemens unit, using standard sequences. 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 FINDINGS: CORONAL ALIGNMENT: -Trace levoconvex scoliosis centered at C5. SAGITTAL ALIGNMENT: -Normal lordosis. -No subluxations of significance. CRANIOCERVICAL JUNCTION/C1-2 ARTICULATIONS: -Intact and aligned. -Mild degenerative arthritis. VERTEBRAL BODIES/BONE MARROW: -No compression deformity or bone marrow edema present. -No infiltrating abnormal bone marrow signal. DISCS: -Mild diffuse loss of disc signal. -Mild loss of disc height present C5-6, C6-7 and C7-T1. CERVICAL CORD: -Normal in signal and caliber throughout. There are no regions of cord impingement or myelomalacia identified. PARAVERTEBRAL SOFT TISSUES: -No abnormalities seen. Thyroid is obscured by a saturation band. VISUALIZED INTRACRANIAL STRUCTURES: -Patchy T2 signal hyperintensity in the central ry, nonspecific. This may be secondary to small vessel ischemic change. AXIAL DISC SPACE IMAGING: C2-C3: No central canal or neural foraminal narrowing. C3-C4: Small right lateral disc protrusion without significant mass effect. No central canal narrowing. Mild right neural foraminal narrowing. C4-C5: No significant disc pathology. Mild bilateral uncinate spurring right greater than left. Normal facets. No central canal narrowing. Mild bilateral neural foraminal narrowing. C5-C6: Somewhat irregular bulging disc present, most prominent left lateral region, where there is contact but no flattening of the left aspect of the cord. This results in mild central stenosis and mild left lateral recess stenosis. There is preserved CSF surrounding the cord. There is no cord impingement. Relatively significant right greater than left uncinate spurring present, with mild right greater than left facet spurring, contributing to severe right and moderate to severe left neural foraminal narrowing. C6-C7: No bulging disc with annular fissuring at this level, minimally indenting upon the ventral thecal sac but not contacting the cord. Minimal central canal narrowing. Mild bilateral uncinate spurring left greater than right. Mild right greater than left facet spurring. There is mild to moderate left neural foraminal narrowing. Right neural foramen is patent. C7-T1: Central disc extrusion present, indenting upon the ventral thecal sac, approaching but not definitively contacting the ventral cord (series 8, image 28). This results in mild central canal stenosis. There is preserved CSF signal surrounding the cord. Neural foramen are patent bilaterally without narrowing. T1-T2: There is a central and right far lateral disc extrusion present, only seen in the sagittal plane. This indents upon the ventral thecal sac, but does not contact the cord. There is mild central canal stenosis and mild right lateral recess stenosis. Neural foramen are patent bilaterally. IMPRESSION: 1. Mild spondylosis of the cervical spine without evidence of significant central canal narrowing or cord impingement. No cord signal abnormality. 2. Mild disc degeneration with bulges/herniations at C5-6, C6-7, and C7-T1, and T1-T2 as detailed. 3. Severe right neural foraminal stenosis C5-6, and moderate left. 4. Mild to moderate left neural foraminal narrowing at C6-7. 5. Patchy central pontine T2 signal hyperintensity, nonspecific and most likely on the basis of small vessel ischemic changes. Refer to the dedicated brain MRI. 6. Additional ancillary findings as discussed. 02/08/2024 XR hip BI w PEL1V 10/02/24 EXAMINATION: XR HIP 2 OR MORE VIEWS BILATERAL HISTORY: M25.551 - Pain in right hip COMPARISON: There are no prior studies for comparison. FINDINGS: A single AP view of the pelvis and two views of each hip are submitted. Osseous mineralization is normal. There is no fracture or dislocation. The joint space is maintained. The soft tissues are unremarkable. IMPRESSION: Unremarkable examination of the bilateral hips. XR lumbar spine 4V min 10/02/24 EXAMINATION: X-ray lumbar spine. CLINICAL INFORMATION: Intervertebral disc degeneration, lumbosacral. TECHNIQUE: AP oblique and lateral views. COMPARISON: None FINDINGS: Facet joint hypertrophy bilaterally at L4-5 and L5-S1. Endplate sclerosis at multiple levels of the lower thoracic and lumbar spine. Grade 1 anterolisthesis L4-5. Grade 1 retrolisthesis L3-4. No acute cortical disruption. Vascular calcifications, aorta and to the left side of the lumbar spine no fully evaluated. IMPRESSION: Multilevel thoracolumbar spondylosis resulting in grade 1 anterolisthesis L4-5 and grade 1 retrolisthesis L3-4. Atherosclerosis disease. Assessment & Plan Assessment & Plan (1) DDD (degenerative disc disease), lumbosacral: Code(s): M51.37 - Other intervertebral disc degeneration, lumbosacral region Category: Medical (2) Lumbosacral spondylosis: Code(s): M47.817 - Spondylosis without myelopathy or radiculopathy, lumbosacral region Category: Medical (3) Bilateral hip pain: Code(s): M25.551 - Pain in right hip; M25.552 - Pain in left hip Category: Medical (4) Sacroiliac joint pain: Code(s): M53.3 - Sacrococcygeal disorders, not elsewhere classified Category: Medical (5) Greater trochanteric bursitis of right hip: Code(s): M70.61 - Trochanteric bursitis, right hip Category: Medical Plan Patient is 1 month status post bilateral injections with complete and ongoing pain relief in these areas. She continues to endorse intermittent to constant right lateral hip discomfort and occasional groin pain. According to her patient portal through [facility], her previous right hip imaging including MRIs and x-rays from 2018 through 2020 did show mild degenerative changes of both hips however her recent hip x-rays was unremarkable. We also review today lumbar spine x-ray results as noted above. Patient will continue to monitor her symptoms with consideration of right therapeutic GTB injection as next steps. If groin pain persists, an updated MRI may be considered to further evaluate right hip condition. The patient is advised to monitor pain levels and report any significant changes or worsening of symptoms. The patient is encouraged to continue with physical therapy exercises to strengthen the gluteus muscles and improve hip stability. Follow-up appointments will be scheduled to reassess the patient's condition and adjust the treatment plan as necessary. Patient was informed and verbally consented to the use of an ambient scribe for clinic note documentation during this visit. Coding Level of Care Code Est Pt Level 4 (34990) Complex EM visit Add On G2211 Diagnoses DDD (degenerative disc disease), lumbosacral M51.37 Lumbosacral spondylosis M47.817 Bilateral hip pain M25.551; M25.552 Sacroiliac joint pain M53.3 Greater trochanteric bursitis of right hip M70.61
--- OUTSIDE RECORDS SUMMARY | 2024-11-16 18:07 | XMS_ITS | Encounter Summary ---
Author Organization [facility] Address [address] [place] [address] Care Team Providers Care Dye Automation Operator Name Role Phone Tami Mario MD Primary Care Provider Unavaila [facility], Pcp Primary Care Provider UnavailTami Wilson MD Primary Care Provider Unavaila [facility], Pcp Primary Care Provider UnavailMarjorie Dobson MD Unavailable [phone] Jordy Steinberg Unavailable Tami Mario MD Unavailable Unavailable Kelly Paul MD Unavailable [phone] Tami Mario MD Primary Care Provider Unavaila Annia Morrissey PA-C Unavailable [phone] Sixto Hopson PA-C Unavailable [phone] Encounter Details Date Type Department Care Team Description 11/09/2018 Orders Only Adult Medicine [facility] - [address] [place] [address] Aram Ortiz MD Elevated alkaline phosphatase level [...] PM EDT Normal by WHO criteria. [facility] Department of Internal Medicine recommends using National [...] alternative screening schedule based on luis Hernández., [facility] June 11, 2011 for patients with osteopenia [...] None. IMPRESSION Normal by WHO criteria. [facility] Department of Internal Medicine recommendsusing National Osteoporosis [...] cm. Continued imaging surveillance recommended. Narrative SACHI HANNAH OTHER EXTERNAL - 11/15/2018 2:46 PM EDT ULTRASOUND ABDOMEN COMPLETE INDICATION: Elevated alkaline phosphatase. COMPARISON: None available. FINDINGS: Per incinerator plant supervisor, exam is limited by patient body habitus [...] imaged upper abdomen. Procedure Note Sonia Ortiz, - 11/15/2018 ULTRASOUND ABDOMEN COMPLETE INDICATION: Elevated alkaline phosphatase. COMPARISON: None available. FINDINGS: Per incinerator plant supervisor, exam is limited by patient body habitus [...] imaging surveillance recommended. Aram Ortiz MD ULTRASOUND SACHI HANNAH OTHER EXTERNAL documented in this encounter Visit Diagnoses Diagnosis Elevated alkaline phosphatase level- Primary Other nonspecific abnormal serum enzyme levels Hyperparathyroidism (HCC) Hyperparathyroidism, unspecified Elevated alkaline phosphatase level Other nonspecific abnormal serum enzyme levels Elevated alkaline phosphatase level Other nonspecific abnormal serum enzyme levels Hyperparathyroidism (HCC) Hyperparathyroidism, unspecified documented in this encounter Care Teams Dye Automation Operator Relationship Specialty Start Date End Date [...] Internal Medicine 10/28/21 Kelly Paul MD [address] [facility] [address] [place], [place] [id number] Specialist Neurosurgery 10/28/21 Annia Bolton PA-C [address] [facility] [address] [place] [address] Specialist Neurosurgery 10/16/22 Sixto Hopson PA-C [address] [facility] [address] [place] [address] Specialist Neurosurgery 10/16/22 documented as of this encounter
== END 2024-11-16 15:42 | disposition home or self-care (01) ==
LOC: HO.PMC 14:56
PROVIDERS: PCP Internal Medicine; Visit Provider Nurse Practitioner Family
DX: M51.379 Other intervertebral disc degeneration, lumbosacral region without mention of lumbar back pain or lower extremity pain (principal); M47.817 Spondylosis without myelopathy or radiculopathy, lumbosacral region; M25.551 Pain in right hip; M25.552 Pain in left hip; M53.3 Sacrococcygeal disorders, not elsewhere classified; M70.61 Trochanteric bursitis, right hip
CPT/HCPCS: 99214

== ENCOUNTER 2024-12-18 13:29 | Outpatient (AMB) | payer OTHER, SELFPAY ==
--- NOTE | 2024-12-18 13:36 | MHC.PC.OV ---
Vital Signs 12/18/24 13:40 Height 5 ft 6 in Weight 212 lb 6 oz BMI 34.3 BP 116/64 Blood Pressure Location Rt brachial Respiration 14 Pulse 88 Pulse Source Pulse Oximeter Temp 98 F Temp Source Oral Pulse Oximetry (%) 96 Oxygen Delivery Method Room Air Intake Visit Reasons: Type II diabetes with Dr. Srivastava Intake Note: Follow up Investigation Specialist Required: No Allergies rofecoxib (From Vioxx) Allergy (Mild, Verified 12/18/24 13:36) Rash Tobacco use date assessed: 09/07/24 Dental Screening Dental Screen Date: 09/07/24 HPI HPI Comments History of Present Illness Details 59 year female with a past medical history of CAD s/p PCI, depression anxiety, obesity, hypertension, hyperlipidemia, chronic neck and back pain, DDD presenting for follow up CAD: History of MA s/p PCI. On losartan, metoprolol, NTG. Blood pressure well controlled. Patient had a recent cardiac cath at [facility] and was told she may need another stent. 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 Prescribed nitro. She is awaiting scheduling which has been highly anxiety provoking. Abdominal aortic aneurysm. Stable on imaging. Will repeat in Apr BH: Anxiety, depression. Following regularly with her therapist MSK: Following with pain management, ortho. Back pain has improved, continues to have fairly severe neck pain. She continues to have right ear pain, scalp pain radiation neck and into lower scalp and neck. CT mastoid without evidence of recurring mastoiditis. She saw ENT. Hearing testing. Worsens when she wears her headset for work. Her hearing feels affected. She does have chronic neck pain, known DDD. Due for mammogram, colonoscopy. She is committed to scheduling both ROS see HPI PHYSICAL EXAM: GENERAL: Alert and oriented x 3. NAD EYES: EOMI. Anicteric. HENT: Moist mucous membranes. No scleral icterus. No cervical lymphadenopathy. LUNGS: Clear to auscultation bilaterally. CARDIOVASCULAR: Regular rate and rhythm. No murmur. No JVD. ABDOMEN: Soft, non-tender +bs EXTREMITIES: No edema. Non-tender. SKIN: No rashes or lesions. Warm. NEUROLOGIC: No focal neurological deficits. CN II-XII grossly intact PSYCHIATRIC: Cooperative. Appropriate mood and affect FORMERLY [facility], 1928–1983 Medical History Back pain GERD (gastroesophageal reflux disease) Diabetes Hx of myocardial infarction (2016) PJ (obstructive sleep apnea) Headache History of trigger finger Osteoarthritis DDD (degenerative disc disease), lumbar Depression Anxiety PTSD (post-traumatic stress disorder) Seasonal allergies Hypercholesteremia Hypertension Abdominal aortic aneurysm Myocardial infarction Surgical History Hx of colonoscopy H/O cardiac catheterization History of carpal tunnel release Hx of heart artery stent (02/2017) Hx of repair of rotator cuff Hx of mastoidectomy (12/2019) Hx of cholecystectomy () History of (11/1995) Social History Household Members: Other Household Members Other:: adult daughter Housing: House Are you a primary managed care provider to a significant other at home: No Do you presently have visiting nurse or other home services: No 75 years or older and lives alone: No Alcohol intake: never Patient Tobacco Use Status: Former Tobacco user Tobacco use type: Cigarette Cigarette Packs Per Day: 0.5 Years Smoked: 40 e-Cigarette/Vaping Use: Never Used Second Hand Smoke Exposure: No service: Yes Current occupational status: employed 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, right hand dominant Current occupational exposures/hazards: No Cognitive needs: No Hearing needs: No Vision needs: Yes (glasses) Questionnaire Thrive Questionnaire Date Thrive assessed: 08/31/24 I am a: Patient What is your living situation today?: I have a steady place to live Within the past 12 months, did the food you bought not last and you didn't have the money to get more?: Never true Within the past 12 months, did you worry whether your food would run out before you got money to buy more?: Never true Do you have trouble paying for medicines?: No Do you have trouble getting transportation to medical appointments?: No Do you have trouble paying your heating and electricity bill?: No Do you have trouble taking care of your child, family member or friend?: No Do you have trouble with day-to-day activities such as bathing, preparing meals, shopping, managing finances, etc.?: No Are you currently unemployed and looking for a job?: Yes Are you interested in more education?: Yes Please select the resources that you would like help with: None Currently or been in a relationship where the following occur: No concerns reported THRIVE Score: 0 LILIAN-7 AMB Questionnaire LILIAN-7 Date LILIAN - 7 assessed: 09/07/24 Source: Developed by Drs. Anant Murray, Jhoana Locke, Sanket Johnson and colleagues, with an educational jyotsna from [employer]. Physical exam (Primary Care) Vital Signs: Last Vital Signs Temp 98 F 12/18/24 13:40 Pulse 88 12/18/24 13:40 Resp 14 12/18/24 13:40 BP 116/64 12/18/24 13:40 Pulse Ox 96 12/18/24 13:40 Oxygen Delivery Method Room Air 12/18/24 13:40 BMI result Body Mass Index 34.3 Tobacco/Smoking Status: Tobacco use Status Tobacco use date assessed 09/07/24 12/18/24 13:36 Patient Tobacco Use Status Former Tobacco user 12/18/24 13:36 Tobacco use type Cigarette 12/18/24 13:36 e-Cigarette/Vaping Use Never Used 12/18/24 13:36 Thrive Assessment: Date of Thrive Assessment Date Thrive assessed 08/31/24 12/18/24 13:36 Currently or been in a relationship where the following occur: No concerns reported Coding Level of Care Code Est Pt Level 4 (58346) Complex EM visit Add On G2211 Diagnoses Primary hypertension I10 Hypertension type: primary hypertension MDD (major depressive disorder), recurrent, in partial remission F33.41 Coronary artery disease involving [place] coronary artery of [place] heart without angina pectoris I25.10 Associated angina: without angina Coronary Disease-Associated Artery/Lesion type: [place] artery [place] vs. transplanted heart: [place] heart Infrarenal abdominal aortic aneurysm (AAA) without rupture I71.43 Abdominal aorta location: infrarenal aorta Presence of rupture: without rupture Assessment & Plan Assessment & Plan (1) Hypertension: Code(s): I10 - Essential (primary) hypertension Category: Medical Qualifiers: Hypertension type: primary hypertension Qualified Code(s): I10 - Essential (primary) hypertension (2) MDD (major depressive disorder), recurrent, in partial remission: Code(s): F33.41 - Major depressive disorder, recurrent, in partial remission Category: Medical (3) CAD (coronary artery disease): Code(s): I25.10 - Atherosclerotic heart disease of [place] coronary artery without angina pectoris Category: Medical Qualifiers: Associated angina: without angina Coronary Disease-Associated Artery/Lesion type: [place] artery [place] vs. transplanted heart: [place] heart Qualified Code(s): I25.10 - Atherosclerotic heart disease of [place] coronary artery without angina pectoris (4) Abdominal aortic aneurysm: Code(s): I71.40 - Abdominal aortic aneurysm, without rupture, unspecified Category: Medical Qualifiers: Abdominal aorta location: infrarenal aorta Presence of rupture: without rupture Qualified Code(s): I71.43 - Infrarenal abdominal aortic aneurysm, without rupture Plan Neck pain-suspect cervical neuritis. Discuss with pain management, possible neurology consult Abd aneurysm-repeat booked for Dec CAD-patient has been informed evidence of new blockage she is awaiting scheduling for catheterization. Reached out to [facility] for inquiry . She has nitro prn. She has not needed this Cervical neuralgia, neuritis-follow up pain management. referral neurology prn. Kelsea avalos ordered Anxiety/depression-especially high at present awaiting cardiac booking. continue duloxetine. BP controlled. Declines anxioulytic Orders: Orders US abdominal aortic aneurysm 5 Months I71.40 - Abdominal aortic aneurysm, without rupture, unspecified Complete Blood Count Auto Diff 4 Months I10 - Essential (primary) hypertension, I25.10 - Atherosclerotic heart disease of [place] coronary artery without angina pectoris, R73.01 - Impaired fasting glucose Comprehensive Met. Panel 4 Months I10 - Essential (primary) hypertension, I25.10 - Atherosclerotic heart disease of [place] coronary artery without angina pectoris, R73.01 - Impaired fasting glucose Hemoglobin A1c 4 Months I10 - Essential (primary) hypertension, I25.10 - Atherosclerotic heart disease of [place] coronary artery without angina pectoris, R73.01 - Impaired fasting glucose Medications: New pregabalin (Lyrica) 150 mg PO BID 180 caps 3RF
[2024-12-18 13:40] VITALS: BP 116/64; PULSE 88; RESP 14; TEMP 36.6; O2SAT 96; BMI 34.3
--- OUTSIDE RECORDS SUMMARY | 2024-12-18 14:11 | XMS_ITS | Clinical Summary ---
Author Organization [facility] Address [address] [place] [address] Care Team Providers Care Case Resolution Specialist Name Role Phone Tami Srivastava MD Primary Care Provider [phone] Allergies Active Allergy Reactions Criticality Noted Date [...] skin. 0 Active ergocalciferol (VITAMIN D2) capsule 39326 units Take 50,000 Units by mouth once a week. 0 Active Aspirin Buf,XuJjsm-QjKovi-CvI , 81 MG TABS Take 1 tablet [...] 89 12/24/2020 11:42 AM EDT Temperature 36.3 C (97.3 F) 12/24/2020 11:42 AM EDT Respiratory Rate - - Oxygen Saturation 99% [...] 5 season) 2024 06/12/2020 Influenza Vaccine (#1) 2025 RSV Ped < 20 months Aged Out No longe r eligible based on patient's age to complete this topic Care Teams Case Resolution Specialist Relationship Specialty Start Date End Date Tami Srivastava MD PCP - General Internal Medicine 12/24/20
--- OUTSIDE RECORDS SUMMARY | 2024-12-18 14:11 | XMS_ITS | Clinical Summary ---
Author Organization Patient Business Ser [facility] Address [address] [place] [address] Care Team Providers Care Airplane Flight Attendant Name Role Phone Tami Srivastava MD Primary Care Provider [phone] Allergies Active Allergy Reactions Criticality Noted Date Comments Egg GI intolerance 11/13/2024 Egg Derived Unknown 03/16/2017 Rofecoxib Hives Medium 01/08/2020 Medications metoprolol succinate (TOPROL-XL) 50 mg 24 hr tablet Take 1 tablet (50 mg total) by mouth 1 (one) time each day. 11/16/2022 Active omeprazole (PriLOSEC) [address] capsule Take 1 capsule (20 mg total) by mouth 1 (one) time each day. 12/20/2019 Active tirzepatide (Mounjaro) 15 mg/0.5 mL injection Inject 0.5 mL (15 mg total) under the skin every 7 (seven) days. Active amitriptyline (ELAVIL) 100 mg tablet Take 1 tablet (100 mg total) by mouth at bedtime. Active losartan (COZAAR) 25 mg tablet Take 1 tablet (25 mg total) by mouth 1 (one) time each day. Active DULoxetine (CYMBALTA) [address] capsule Take 1 capsule (60 mg total) by mouth 1 (one) time each day. Do not crush or chew. Active atorvastatin (LIPITOR) 40 mg tablet Take 1 tablet (40 mg total) by mouth at bedtime. Active albuterol HFA (PROAIR HFA ; PROVENTIL HFA ; VENTOLIN HFA) 90 mcg/actuation inhaler Inhale 2 puffs by mouth every 6 (six) hours if needed for wheezing. Active aspirin 81 mg EC tablet Take 1 tablet (81 mg total) by mouth 1 (one) time each day. Active cholecalciferol (VITAMIN D-3) 1,250 mcg (50,000 unit) capsule Take 1 capsule (50,000 Units total) by mouth 1 (one) time per week. Active nitroglycerin (NITROSTAT) 0.[address] 1 tablet (0.4 mg total) under the tongue every 5 (five) minutes if needed for chest pain. May repeat dose every 5 minutes for up to 3 doses total. 40 tablet 1 12/06/2024 Active Hospital, Clinic, or Other Facility Administered Medication Ordered Dose Route Frequency Start Date End Date Status TC-99M tetrofosmin P radio-isotope injection 10.6 millicurie 10.6 millicurie IV Once in imaging 12/06/2024 12/06/2024 Ende d regadenoson (LEXISCAN) injection 0.4 mg 0.4 mg IV Once in imaging 12/06/2024 12/06/2024 End ed TC-99M tetrofosmin P radio-isotope injection 32.7 millicurie 32.7 millicurie IV Once in imaging 12/06/2024 12/06/2024 Ende d Active Problems Problem Noted Date Diagnosed Date Coronary artery disease invo lving [place] coronary artery of [place] heart 11/13/2024 Assessment & Plan (11/13/2024 4:04 PM EDT): Status post ST elevation OK with PCI to the proximal circumflex and OM1 in 2017. Patient has no new anginal symptoms at the appointment today, however she is limited by her arthritis and Ortho injuries. She is worried that she is not able to properly dress herself so she is not sure if she has any anginal symptoms at stress. Should continue with the baby aspirin, and atorvastatin 40 mg p.o. daily. In addition she can stay on the metoprolol succinate 50 mg p.o. daily. I am going to update a nuclear stress test. Instructed to call 911 or go to the emergency room should the patient begin to experience chest pain or pressure lasting greater than 10 minutes does not resolve with rest. Primary hypertension 11/13/2024 Assessment & Plan (11/13/2024 4:05 PM EDT): Well-controlled the appointment today. Continue on current medication regiment which includes losartan 25 mg p.o. daily, metoprolol 50 mg p.o. daily. Educated on the importance of diet lifestyle to help further assist in reducing blood pressure. The patient was encouraged to follow low-salt low-fat diet, make purposeful strides towards weight loss, and engage in routine aerobic exercise as tolerated. Hyperlipidemia 11/13/2024 Assessment & Plan (11/13/2024 4:06 PM EDT): Please continue with the atorvastatin 40 mg p.o. daily. Would like her LDL cholesterol to be under 70 but closer to 50 Encounters Date Type Department Care Team Description 12/06/2024 7:30 AM EDT Ancillary Procedure [facility] - [address] [place] [address] Coronary artery disease involving [place] coronary artery of [place] heart, unspecified whether angina present 12/06/2024 Telephone [facility] - [address] [place] [address] Jeyson Masterson NP 11/13/2024 1:40 PM EDT Office Visit [facility] - [address] [place] [address] Jeyson Masterson NP Coronary artery disease involving [place] coronary artery of [place] heart, unspecified whether angina present (Primary Dx); Hypertension, unspecified type; Aortic aneurysm without rupture, unspecified portion of aorta (CMS/HCC V24); Coronary artery disease involving [place] coronary artery of [place] heart with angina pectoris (CMS/HCC V24); Primary hypertension; Hyperlipidemia, unspecified hyperlipidemia type from Last 3 Months Immunizations Name Administration [...] (CMS/HCC V24) DX:AAA (abdominal aortic ane urysm) ([facility]); COMMENT: 3.2 cm Family History Medical History [...] Daughter Alive A&W Father rheumatoid arth ritis, [place] age 56 Mother HTN, DMII, Gall bladder CA Sister 1 Sister 2 Alive A&W Social History Tobacco Use Types Packs/Day Years Used Date Smoking Tobacco: Former Cigarettes Smokeless Tobacco: Former Tobacco Cessation:Counseling Given: Not Answered Alcohol Use Standard Drinks/Week Comments Yes 0 (1 standard drink = 0.6 oz pur e alcohol) rarley Comments Unknown Sex and Gender Information Value Date Recorded Sex Assigned at Not on file Legal Sex Female 1:06 PM EST Gender Identity Not on file Sexual Orientation Not on file Obstetrics History Last Filed Vital Signs Vital Sign Reading Time Taken Comments Blood Pressure 100/58 12/06/2024 7:59 AM EDT Pulse 91 11/13/2024 1:48 PM EDT Temperature - - Respiratory Rate - - Oxygen Saturation 96% 11/13/2024 1:48 PM EDT Inhaled Oxygen Concentration - - Weight 93 kg (205 lb) 11/13/2024 1:48 PM EDT Height 169.2 cm (5' 6.6 ) 11/13/2024 1:48 PM EDT Body Mass Index 32.49 11/13/2024 1:48 PM EDT Plan of Treatment Upcoming Encounters Date Type Department Care Team (Late st Contact Info) Description 02/16/2025 7:00 AM EDT Ancillary Procedure [facility] [address] [facility] [address] [place] [address] Health Maintenance Due Date Last Done Comments Breast Cancer Screening 1966 Diabetes: Annual GFR (Glomerular Filtration Rate) 1966 Diabetes: Annual Foot Exam 01/14/1976 Diabetes: Annual Retina Eye Exam 01/14/1976 Hepatitis B Vaccines (1 of 3 - 19+ 3-dose series) 1985 Cervical Cancer Screening: P ap Smear 1987 Pneumococcal Vaccine: 50+ Years (1 of 1 - PCV) 01/14/2016 Zoster Vaccines (1 of 2) 01/14/2016 DTaP,Tdap,and Td Vaccines (2 - Td or Tdap) 09/10/2018 09/10/2008 Cholesterol Screening (Lipid Panel) 05/08/2020 Colorectal Cancer Screening: Colonoscopy 05/08/2020 HIV Screening 05/08/2020 Hepatitis C Screening 05/08/2020 Social Influencers of Health Screening 05/08/2020 Hypertension/CHF/CAD Annual BMP Blood Test 05/03/2022 Diabetes: Annual Urine Albumin-Creatinine Ratio (uACR) 07/08/2023 Diabetes: Blood Sugar Contro l Test (HGBA1C) 07/08/2023 COVID-19 Vaccine (4 - 2023-2 5 season) 2024 02/18/2021, 07/02/2020, 06/12/2020 Depression Screening 05/24/2024 Influenza Vaccine (#1) 2025 HIB Vaccines Aged Out No longer [...] on patient's age to complete this topic Procedures Procedure Name Priority Date/Time Associated Diagnosis Comments NM LEXISCAN STRESS TEST W/ MYOCARDIAL PERFUSION Routine 12/06/2024 10:21 AM EDT Coronary artery disease involving [place] coronary artery of [place] heart, unspecified whether angina present ECG 12-LEAD Routine 11/13/2024 2:00 PM EDT Hypertension, unspecified type from Last 3 Months Results * NM LEXISCAN STRESS TEST W/ MYOCARDIAL PERFUSION (12/06/2024 10:21 AM EDT) Exercise/injec tion duration (min) 0 CV PACS STRESS Exercise/injec tion duration (sec) 40 CV PACS STRESS Peak SBP 129 mmHg CV PACS STRESS Peak DBP 70 mmHg CV PACS STRESS Peak HR 122 bpm CV PACS STRESS Baseline HR 96 bpm CV PACS STRESS Baseline SBP 100 mmHg CV PACS STRESS Baseline DBP 58 mmHg CV PACS STRESS Estimated workload 1.0 METS CV PACS STRESS Percent HR 75 % CV PACS STRESS Rate Pressure Product 15,738.0 mmHg*bpm CV PACS STRESS Target HR 138 bpm CV PACS STRESS TID 1.16 CV PACS STRESS Nuc Stress EF 68 % CV PAC S STRESS Nuc Rest EF 67 % CV PACS STRESS Anatomical Region Laterality Modality Nuclear Medicine 12/06/2024 8:37 AM EDT 12/06/2024 9:20 AM EDT Narrative 12/06/2024 1:57 PM EDT LV perfusion is abnormal. There is evidence of ischemia in the LCX distribution. There is possible a small area of anterior ischemia though this could also represent shifting breast tissue attenuation. Stress ejection fraction is 68%. Normal wall motion and thickening. Vasodilator (regadenoson) stress test was performed . Normal blood pressure response. ECG stress as documented below. Stress Findings A pharmacological stress test was performed using regadenoson, 0.4 mg IV over 10-15 seconds, followed by radiopharmacological injection 10 seconds post infusion. Total stress time was 0 min and 40 sec. The patient reached the end of the protocol. Blood pressure demonstrated a normal response. Heart rate demonstrated a normal response. The patient reported dizziness during the stress test that quickly resolved with caffeine. ECG 59-year-old female with a past medical history significant for coronary artery disease with PCI to the proximal circumflex and OM1, hypertension, hyperlipidemia, ongoing tobacco use, peripheral vascular disease, and to rule out ischemia. The patient is on metoprolol, losartan, baby aspirin during testing. Baseline EKG sinus rhythm There were no arrhythmias during stress. There were no arrhythmias during recovery. Nondiagnostic in the setting of a pharmacological nuclear stress test. Nuclear Study Quality Study technique: MPI, SPECT, multi, rest and stress, 1 day. Overall image quality is excellent. CT attenuation correction was utilized. There are no artifacts present. There was no increased lung uptake of the radiopharmaceutical. No radiopharmaceutical dose was extravasated. The time from injection to rest imaging is 30 mins. The time from injection to stress imaging is 40 mins. Perfusion Defect Conclusion There is no evidence of transient ischemic dilation (TID). Stress Function Comments Stress ejection fraction is 68%. Rest Function Comments Resting ejection fraction was 67%. Normal regional wall motion and thickening. CT Findings CT was performed for attenuation correction purposes not for diagnosis. Heavy coronary calcifications seen in the LAD and LCx distribution. Perfusion Comments LV perfusion is abnormal. There is a medium size moderate in intensity mostly reversible defect of the basal to mid lateral andrade. Also small in size mild intensity reversible defect of the anterior wall that mostly normalizes with attenuation correction. Jeyson Masterson NP CV STRESS PROCEDURES Final Resul t * ECG 12 lead (11/13/2024 2:00 PM EDT) Ventricular Rate ECG 91 BPM GEMUSE Atrial Rate 91 BPM GEMUSE P-R Interval 140 ms GEMUSE QRS Duration 82 ms GEMUSE Q-T Interval 340 ms GEMUSE QTc 418 ms GEMUSE P Wave [place] 62 degrees GEMUSE R [place] 42 degrees GEMUSE T [place] 56 degrees GEMUSE ECG Interpretation Normal sinus rhythm Normal ECG No previous ECGs available Confirmed by MINA NIELSEN ([id number]) on 12/11/2024 4:01:49 PM GEMUSE 11/13/2024 1:57 PM EDT 12/11/2024 4:01 PM EDT us Jeyson Masterson TRIMMER AND BORER MACHINE OPERATOR ECG ORDERABLES Edited Result - Final GEMUSE from Last 3 Months Insurance [employer] Care Teams Airplane Flight Attendant Relationship Specialty Start Date End Date Tami Srivastava MD [address] [place] [id number] PCP - General Internal Medicine 09/11/24
--- OUTSIDE RECORDS SUMMARY | 2024-12-18 14:11 | XMS_ITS ---
Author Name [facility] Organization Unknown Care Team Organization Name Specialty Phone Email Start Date End Willian CaldwelliatrLayla P.CWillie 10/24/2022 PodiatryCken P.Tami [facility]
--- OUTSIDE RECORDS SUMMARY | 2024-12-18 14:11 | XMS_ITS | Encounter Summary ---
Author Organization [facility] Address [address] [place] [address] Care Team Providers Care Drip Molder Name Role Phone Tami Mario MD Primary Care Provider Unavaila [facility], Pcp Primary Care Provider UnavailTami Wilson MD Primary Care Provider Unavaila [facility], Pcp Primary Care Provider UnavailMarjorie Dobson MD Unavailable [phone] Jordy Steinberg Unavailable Tami Mario MD Unavailable Unavailable Kelly Paul MD Unavailable [phone] Tami Mario MD Primary Care Provider Unavaila Annia Morrissey PA-C Unavailable [phone] Sixto Hopson PA-C Unavailable [phone] Encounter Details Date Type Department Care Team Description 11/09/2018 Orders Only Adult Medicine B [address] [place] [address] [place] [address] Aram Ortiz MD Elevated alkaline phosphatase level [...] PM EDT Normal by WHO criteria. [facility] Department of Internal Medicine recommends using National [...] alternative screening schedule based on luis Hernández., [facility] June 11, 2011 for patients [...] None. IMPRESSION Normal by WHO criteria. [facility] Department of Internal Medicine recommendsusing National Osteoporosis [...] alkaline phosphatase. COMPARISON: None available. FINDINGS: Per twx operator, exam is limited by patient body habitus [...] alkaline phosphatase. COMPARISON: None available. FINDINGS: Per twx operator, exam is limited by patient body habitus [...] unspecified documented in this encounter Care Teams Drip Molder Relationship Specialty Start Date End Date [...] Internal Medicine 10/28/21 Kelly Paul MD [address] [facility] [address] [place], [place] [id number] Specialist Neurosurgery 10/28/21 Annia Bolton PA-C [address] [facility] [address] [place] [address] Specialist Neurosurgery 10/16/22 Sixto Hopson PA-C [address] [facility] [address] [place] [address] Specialist Neurosurgery 10/16/22 documented as of this encounter
--- OUTSIDE RECORDS SUMMARY | 2024-12-18 14:11 | XMS_ITS | Clinical Summary ---
Author Organization [facility] Address [address] [place] [address] Care Team Providers Care Steam Fitter Supervisor Name Role Phone Tami Srivastava MD Primary Care Provider [phone] Allergies Active Allergy Reactions Criticality Noted Date [...] 96 01/09/2020 4:30 PM EDT Temperature 36.5 C (97.7 F) 01/09/2020 3:24 PM EDT Respiratory Rate 13 01/09/2020 4:30 PM EDT [...] Inactivated Comments 01/09/2020 12:05 PM Care Teams Steam Fitter Supervisor Relationship Specialty Start Date End Date Tami Srivastava MD [address] [place] [address] [place] [id number] PCP - General Primary Care-Scan 01/02/20
== END 2024-12-18 14:20 | disposition home or self-care (01) ==
LOC: HO.HMCFM 13:30
PROVIDERS: PCP Internal Medicine; Visit Provider Internal Medicine
DX: I10 Essential (primary) hypertension (principal); F33.41 Major depressive disorder, recurrent, in partial remission; I25.10 Atherosclerotic heart disease of native coronary artery without angina pectoris; I71.43 Infrarenal abdominal aortic aneurysm, without rupture

== ENCOUNTER 2025-01-30 15:17 | Outpatient (AMB) | payer OTHER, SELFPAY ==
--- NOTE | 2025-01-30 15:19 | MHC.OFFVIS ---
Vital Signs 01/30/25 15:21 Height 5 ft 6 in Weight 211 lb 6 oz BMI 34.1 BP 110/82 Blood Pressure Location Rt brachial Position Sitting Pulse 95 Pulse Source Pulse Oximeter Pulse Oximetry (%) 98 Oxygen Delivery Method Room Air Intake Visit Reasons: INP-Headache,Neuralgia and neuritis,chronic pain Intake Note: Headache, Neuralgia, neuritis and chronic pains Airplane Fueler Required: No Accompanied by: Self / Same As Patient Allergies rofecoxib (From Vioxx) Allergy (Mild, Verified 01/30/25 15:20) Rash Medication List - Last Reconciled 01/30/25 by Vira Maya MD albuterol sulfate 90 mcg/actuation 2 puffs inhalation Q4-6H PRN amitriptyline 100 mg PO BEDTIME aspirin 81 mg PO DAILY atorvastatin 40 mg PO BEDTIME cholecalciferol (vitamin D3) 125 mcg PO DAILY duloxetine 60 mg PO DAILY 30 days loratadine 10 mg PO BEDTIME losartan 25 mg PO DAILY metoprolol succinate ER 50 mg PO DAILY Mounjaro (tirzepatide) 15 mg (0.5 mL) subcut QWEEK NS nitroglycerin 0.4 mg sublingual Q5M PRN omeprazole 20 mg PO BEDTIME pregabalin (Lyrica) 150 mg PO BID HPI Comments Details: 60y/o female comes for evaluation of head pain In 2019 she had right matoidectomy and since then she feels like she has discomfort in the area which worsens intermittently .She saw ENT but did not have a diagnosis. 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 she describes it as pressure and tenderness in right mastoid region. she has some light sensitivity and noise sensitivity .No nausea . It can radiate to temporal region sometimes and sometimes to her neck. she has neck arthritis , TMJ etc. she has tinnitus and has mild hearing loss. sleep- she has sleep apnea on CPAP - stopped using because of worsening of her mastoid pain.she has chronic insomnia and has been on amtriptyline 100mg qhs [facility] Medical History (Updated 01/30/25 @ 16:13 by Vira Maya MD) Insomnia Cervicalgia Obstructive sleep apnea Head pain cephalgia Back pain GERD (gastroesophageal reflux disease) Diabetes Hx of myocardial infarction (2017) PJ (obstructive sleep apnea) Headache History of trigger finger Osteoarthritis DDD (degenerative disc disease), lumbar Depression Anxiety PTSD (post-traumatic stress disorder) Seasonal allergies Hypercholesteremia Hypertension Abdominal aortic aneurysm Myocardial infarction Surgical History Hx of colonoscopy H/O cardiac catheterization History of carpal tunnel release Hx of heart artery stent (02/2017) Hx of repair of rotator cuff Hx of mastoidectomy (12/2019) Hx of cholecystectomy () History of (11/1995) Social History Household Members: Other Household Members Other:: adult daughter Housing: House Are you a primary clinical manager home care to a significant other at home: No Do you presently have visiting nurse or other home services: No 75 years or older and lives alone: No Alcohol intake: never Patient Tobacco Use Status: Former Tobacco user Tobacco use type: Cigarette Cigarette Packs Per Day: 0.5 Years Smoked: 40 e-Cigarette/Vaping Use: Never Used Second Hand Smoke Exposure: No service: Yes Current occupational status: employed Current occupation: [employer], right hand dominant Current occupational exposures/hazards: No Cognitive needs: No Hearing needs: No Vision needs: Yes (glasses) Physical Exam Vital Signs: Last Vital Signs Pulse 95 01/30/25 15:21 BP 110/82 01/30/25 15:21 Pulse Ox 98 01/30/25 15:21 Oxygen Delivery Method Room Air 01/30/25 15:21 BMI result Body Mass Index 34.1 Const General: cooperative, comfortable and anxious Nutritional Appearance: obese Orientation/consciousness: patient oriented x3 Eyes Pupils: Equal, round and reactive pupils present Neuro General: patient oriented x3, gait normal, tone normal, moves all extremities and no focal motor deficits Cranial nerves: Yes Facial sensation intact/muscles of mastication intact, Yes Equal, round and reactive pupils present, Yes Bilaterally intact EOM present, Yes Nystagmus not present, Yes Normal facial strength present, Yes Midline tongue present, Yes Symmetric palate elevation present and Yes Ability to bilaterally elevate shoulders present Cognition (Neuro): normal cognition Gait exam (Neuro): Normal gait present Motor exam (neuro): 5/5 motor strength present throughout and Normal motor muscle tone present throughout Deep tendon reflexes (DTR's): Right triceps reflex intensity grade: 1+, Left triceps reflex intensity grade: 1+, Rt Biceps (C5, C6): 1+, Left biceps reflex intensity grade: 1+, Right brachioradialis reflex intensity grade: 1+, Left brachioradialis reflex intensity grade: 1+, Right patellar reflex intensity grade: 1+ and Left patellar reflex intensity grade: 1+ Coordination: [id number] test normal Results Reviewed Results Reviewed: C spine MRI - 03/16 Mild spondylosis of the cervical spine without evidence of significant central canal narrowing or cord impingement. No cord signal abnormality. 2. Mild disc degeneration with bulges/herniations at C5-6, C6-7, and C7-T1, and T1-T2 as detailed. 3. Severe right neural foraminal stenosis C5-6, and moderate left. 4. Mild to moderate left neural foraminal narrowing at C6-7. 5. Patchy central pontine T2 signal hyperintensity, nonspecific and most likely on the basis of small vessel ischemic changes. Refer to the dedicated brain MRI. 6. Additional ancillary findings as discussed. Assessment & Plan Assessment & Plan (1) Head pain cephalgia: Code(s): R51.9 - Headache, unspecified Category: Medical Qualifiers: Headache type: unspecified (2) Obstructive sleep apnea: Code(s): G47.33 - Obstructive sleep apnea (adult) (pediatric) Category: Medical (3) Cervicalgia: Code(s): M54.2 - Cervicalgia Category: Medical (4) Insomnia: Code(s): G47.00 - Insomnia, unspecified Category: Medical Plan she is on amitriptyline , pregabalin and duloxetine I suggested local lidocaine gel as needed baclofen 5 mg qhs Magnesium 400mg qhs sleep study to reevaluate and see if she could be a candidate for INSPIRE Orders: Orders RT home sleep study Today G47.33 - Obstructive sleep apnea (adult) (pediatric) Medications: New baclofen 5 mg PO BEDTIME 30 tabs 5RF Coding Level of Care Code New Pt Level 4 (18729) Complex EM visit Add On G2211 Diagnoses Head pain cephalgia R51.9 Headache type: unspecified Obstructive sleep apnea G47.33 Cervicalgia M54.2 Insomnia G47.00
[2025-01-30 15:21] VITALS: BP 110/82; PULSE 95; O2SAT 98; BMI 34.1
--- OUTSIDE RECORDS SUMMARY | 2025-01-30 17:37 | XMS_ITS | Clinical Summary ---
Author Organization [facility] Address [address] [place] [address] Care Team Providers Care Shearing Shed Worker Name Role Phone Tami Srivastava MD Primary Care Provider [phone] Allergies Active Allergy Reactions Criticality Noted Date [...] doses total. 40 tablet 1 12/06/2024 Active Active Problems Problem Noted Date Diagnosed Date Coronary artery disease invo lving [place] coronary artery of [place] heart 11/13/2024 Assessment & Plan (11/13/2024 4:04 PM EDT): Status post ST elevation [place] with PCI to the proximal circumflex and [...] Encounters Date Type Department Care Team Description 12/22/2024 Telephone [facility] Cardiology [facility] [address] [place] [address] Jeyson Masterson NP 12/06/2024 7:30 AM EDT Ancillary Procedure [facility] Cardiology [facility] [address] [place] [address] Coronary artery disease involving [place] coronary artery of [place] heart, unspecified whether angina present 12/06/2024 Telephone [facility] Cardiology [facility] [address] [place] [address] Jeyson Masterson NP 11/13/2024 1:40 PM EDT Office Visit [facility] Cardiology [facility] [address] [place] [address] Jeyson Masterson NP Coronary artery disease involving [place] coronary artery of [place] heart, unspecified whether angina present (Primary Dx); Hypertension, unspecified type; Aortic aneurysm without rupture, unspecified portion of aorta (CMS/HCC V24); Coronary artery disease involving [place] coronary artery of [place] heart with angina pectoris (CMS/HCC V24); Primary [...] airway disease) AAA (abdominal aortic aneury sm) ([facility]/HCC V24) DX:AAA (abdominal aortic ane urysm) ([facility]); COMMENT: 3.2 cm Family History Medical History [...] Description 02/16/2025 7:00 AM EDT Ancillary Procedure [facility] [address] [place] [address] Health Maintenance Due Date Last [...] Blood Sugar Contro l Test (HGBA1C) 07/08/2023 Depression Screening 05/24/2024 COVID-19 Vaccine (4 - 2024-2 6 season) 2025 02/18/2021, 07/02/2020, 06/12/2020 Influenza Vaccine (#1) 2025 RSV Immunization Adult Patients (1 - 1-dose 75+ series) 2041 HIB Vaccines Aged Out No longer eligi [...] EDT Coronary artery disease involving [place] coronary artery of [place] heart, unspecified whether angina present ECG 12-LEAD Routine 11/13/2024 2:00 PM EDT Hypertension, unspecified type from Last 3 Months Results * NM LEXISCAN STRESS TEST W/ MYOCARDIAL PERFUSION (12/06/2024 10:21 AM EDT) Pathologist [facility] Exercise/injec tion duration (min) 0 CV PACS [...] wall that mostly normalizes with attenuation correction. us Jeyson Mastersno NP CV STRESS PROCEDURES Final Resul t * ECG 12 lead (11/13/2024 2:00 PM EDT) Ventricular Rate ECG 91 BPM GEMUSE Atrial Rate 91 BPM GEMUSE P-R Interval 140 ms GEMUSE QRS Duration 82 ms GEMUSE Q-T Interval 340 ms GEMUSE QTc 418 ms GEMUSE P Wave [place] 62 degrees GEMUSE R [place] 42 degrees GEMUSE T [place] 56 degrees GEMUSE ECG Interpretation Normal sinus rhythm Normal ECG No previous ECGs available Confirmed by MINA NIELSEN ([id number]) on 12/11/2024 4:01:49 PM GEMUSE 11/13/2024 1:57 PM EDT 12/11/2024 4:01 PM EDT us Jeyson Masterson NP ECG ORDERABLES Edited Result - Final GEMUSE from Last 3 Months Insurance [employer] Care Teams Shearing Shed Worker Relationship Specialty Start Date End Date Tami Srivastava MD PCP - General Internal Medicine 09/11/24
--- OUTSIDE RECORDS SUMMARY | 2025-01-30 17:37 | XMS_ITS | Clinical Summary ---
Author Organization [facility] Address [address] [place] [address] Care Team Providers Care Machine Tool Technology Instructor Name Role Phone Tami Srivastava MD Primary Care Provider [phone] Allergies Active Allergy Reactions Criticality Noted Date [...] skin. 0 Active ergocalciferol (VITAMIN D2) capsule 26918 units Take 50,000 Units by mouth once a week. 0 Active Aspirin Buf,EfQujg-[id number] , 81 MG TABS Take 1 tablet [...] Tdap) 09/10/2018 009 COVID-19 Vaccine (2 - 2024-2 6 season) 2025 06/12/2020 Influenza Vaccine (#1) 2025 RSV Ped < 20 months Aged Out No longe r eligible based on patient's age to complete this topic Care Teams Machine Tool Technology Instructor Relationship Specialty Start Date End Date Tami Srivastava MD PCP - General Internal Medicine 12/24/20
--- OUTSIDE RECORDS SUMMARY | 2025-01-30 17:37 | XMS_ITS | Clinical Summary ---
Author Organization [facility] Address [address] [place] [address] Care Team Providers Care Canvas Goods Fabricator Name Role Phone Tami Srivastava MD Primary Care Provider [phone] Allergies Active Allergy Reactions Criticality Noted Date [...] Inactivated Comments 01/09/2020 12:05 PM Care Teams Canvas Goods Fabricator Relationship Specialty Start Date End Date Tami Srivastava MD [address] [place] [address] [place] [id number] PCP - General Primary Care-Scan 01/02/20
== END 2025-01-30 16:23 | disposition home or self-care (01) ==
LOC: HO.HSMS 15:18
PROVIDERS: PCP Internal Medicine; Visit Provider Psychiatry & Neurology Neurology
DX: R51.9 Headache, unspecified (principal); G47.33 Obstructive sleep apnea (adult) (pediatric); M54.2 Cervicalgia; G47.00 Insomnia, unspecified
CPT/HCPCS: 99204

== ENCOUNTER → 2025-04-26 15:35 | Outpatient (REF) | payer OTHER, SELFPAY ==
--- OUTSIDE RECORDS SUMMARY | 2025-04-26 21:40 | XMS_ITS | Encounter Summary ---
Author Organization [facility] [place] [address] Care Team Providers Care Lock Setter Name Role Phone Tami Srivastava MD Primary Care Provider [phone] Encounter Details Date Type Department Care Team (Late st Contact Info) Description 03/22/2025 Telephone [facility] - [facility] [address] [facility] [address] [place] [address] Jeyson Masterson NP [address] [place] [address] [place] [id number] Social History Tobacco Use Types Packs/Day Years Used Date Smoking Tobacco: Former Cigarettes Smokeless Tobacco: Former Alcohol Use Standard Drinks/Week Comments Yes 0 [...] on filedocumented in this encounter Care Teams Lock Setter Relationship Specialty Start Date End Date Tami Srivastava MD PCP - General Internal Medicine 09/11/24 documented as of this encounter
--- OUTSIDE RECORDS SUMMARY | 2025-04-26 21:40 | XMS_ITS | Clinical Summary ---
Author Organization [facility] Prior to 10/21/24 Address [address] [place] [address] Care Team Providers Care Electric Needle Specialist Name Role Phone Tami Srivastava MD Primary Care Provider [phone] Allergies Active Allergy Reactions Criticality Noted Date [...] skin. 0 Active ergocalciferol (VITAMIN D2) capsule 64073 units Take 50,000 Units by mouth once a week. 0 Active Aspirin Buf,FkIolx-[id number] , 81 MG TABS Take 1 tablet [...] to complete this topic [facility] Corporate Other 11/17/1979 ATSesar NUNEZ [address] [place] [address] Daryn-Rubio ,Elin Personal/Family Self [address] [place] [id number] [facility] Corporate Other 11/17/[address] MIRIAM NUNEZ [address] Care Teams Electric Needle Specialist Relationship Specialty Start Date End Date Tami Srivastava MD PCP - General Internal Medicine 12/24/20
--- OUTSIDE RECORDS SUMMARY | 2025-04-26 21:40 | XMS_ITS | Clinical Summary ---
Author Organization [facility] Address [address] [place] [address] Care Team Providers Care Textile Converter Name Role Phone Tami Srivastava MD Primary Care Provider [phone] Allergies Active Allergy Reactions Criticality Noted Date [...] 50+ (1 of 1 - PCV) 01/14/2016 RSV Vaccine 50 years and old er and Patients (1 - Risk 50-74 years 1-dose series) 01/14/2016 Zoster (Shingles) Vaccine (1 of 2) 01/14/2016 Influenza Vaccine 12/22/2024 COVID-19 Vaccine ( - 2024- season) 2025 Insurance [employer] HMO Advance Directives * Full Code (Latest Code Status on File) Date Activated Date Inactivated Comments 01/09/2020 12:05 PM Care Teams Textile Converter Relationship Specialty Start Date End Date Tami Srivastava MD [address] [place] [address] PCP - General Primary Care-Scan 01/02/20
--- OUTSIDE RECORDS SUMMARY | 2025-04-26 21:40 | XMS_ITS | Clinical Summary ---
Author Organization Patient Business [email or web address] [place] Address [address] [place] [address] Care Team Providers Care Field Artillery Operations Man Name Role Phone Tami Srivastava MD Primary Care Provider [phone] Allergies Active Allergy Reactions Criticality Noted Date [...] Diagnosed Date Coronary artery disease invo lving [place] coronary artery of [place] heart 11/13/2024 Assessment & Plan (11/13/2024 4:04 PM EDT): Status post ST elevation [place] with PCI to the proximal circumflex and [...] Encounters Date Type Department Care Team Description 03/22/2025 Telephone [facility] Cardiology [facility] - [address] [place] [address] Marjorie Hess MD 03/22/2025 Telephone [facility] Cardiology [facility] - [address] [place] [address] Jeyson Masterson NP 03/05/2025 8:00 AM EDT Ancillary Procedure [facility] - [address] [place] [address] Hypertension, unspecified type from Last 3 Months Immunizations Immunization Administration Dates Next Due MyRoll SARS-CoV-2 COVID-19, mRNA, LNP-S, preservative free 06/12/2020 [...] (CMS/HCC V24) DX:AAA (abdominal aortic ane urysm) ([facility]); COMMENT: 3.2 cm Family History Medical [...] Daughter Alive A&W Father rheumatoid arth ritis, [place] age 56 Mother HTN, DMII, Gall bladder [...] Sign Reading Time Taken Comments Blood Pressure 125/70 03/05/2025 8:55 AM EDT Pulse 91 11/13/2024 1:48 PM EDT Temperature - - Respiratory Rate - - Oxygen Saturation 96% 11/13/2024 1:48 PM EDT Inhaled Oxygen Concentration - - Weight 97.5 kg (215 lb) 03/05/2025 8:55 AM EDT Height 167.6 cm (5' 6 ) 03/05/2025 8:55 AM EDT Body Mass Index 34.7 03/05/2025 8:55 AM EDT Plan of Treatment Health Maintenance Due Date Last Done Comments Breast Cancer Screening 1965 Colorectal Cancer Screening: Colonoscopy 1965 Diabetes: Annual GFR (Glomerular Filtration Rate) 1966 Diabetes: Annual Foot Exam 01/14/1976 Diabetes: Annual Retina Eye Exam 01/14/1976 Hepatitis B Vaccines (1 of 3 - 19+ 3-dose series) 1985 Cervical Cancer Screening: P ap Smear 1987 Pneumococcal Vaccine: 50+ Years (1 of 1 - PCV) 01/14/2016 RSV Immunization Adult Patients (1 - Risk 50-74 years 1-dose series) 01/14/2016 Zoster Vaccines (1 of 2) 01/14/2016 DTaP,Tdap,and Td Vaccines (2 - Td or Tdap) 09/10/2018 09/10/2008 Cholesterol Screening (Lipid Panel) 05/08/2020 HIV Screening 05/08/2020 Hepatitis C Screening 05/08/2020 Social Influencers of Health Screening 05/08/2020 Hypertension/CHF/CAD Annual BMP Blood Test 05/03/2022 Diabetes: Annual Urine Albumin-Creatinine Ratio (uACR) 07/08/2023 Diabetes: Blood Sugar Contro l Test (HGBA1C) 07/08/2023 Depression Screening 05/24/2024 COVID-19 Vaccine (2024-2 6 season) 2025 02/18/2021, 07/02/2020, 06/12/2020 Influenza Vaccine (#1) 2025 HIB Vaccines Aged [...] Procedure Name Priority Date/Time Associated Diagnosis Comments TRANSTHORACIC ECHOCARDIOGRAM (TTE) COMPLETE W/ CONTRAST Routine 03/05/2025 8:55 AM EDT Hypertension, unspecified type from Last 3 Months Results * (ABNORMAL) TRANSTHORACIC ECHOCARDIOGRAM (TTE) COMPLETE W/ CONTRAST (03/05/2025 8:55 AM EDT) Left Atrium Minor [place] 5.8 cm CV PACS Left Atrium Major [place] 5.9 cm CV PACS LA Area Sys (A2C) 23 cm2 CV PACS LA Area Sys (A4C) 20 cm2 CV PACS LA Volume (BP) 61 mL CV PACS RA Area 10.4 cm2 CV PACS RA 2D Volume 18 mL CV PACS AV Regurgitation PHT 330 ms CV PACS AR Max Velocity 4.3 m/s CV PACS AV Regurgitant Volume 61 mmHg CV PACS Aortic Sinus Valsalva 3.1 cm CV PACS Ascending Aorta 3.1 cm CV PACS IVC Proximal 1.9 cm CV PACS IVC Proximal 0.6 cm CV PACS IVSD 0.8 0.6 - 0.9 cm CV PACS LVIDD 4.3 3.8 - 5.2 cm CV PACS LVOT Diameter 2.4 cm CV PACS LVOT Mean Marvin 0.9 m/s CV PACS LVOT Mean Grad 4 mmHg CV PACS LVOT Peak VTI 25.7 cm CV PACS LVOT Peak Marvin 1.4 m/s CV PACS LVOT Peak Gradient 8 mmHg CV PACS LVPWD 0.8 0.6 - 0.9 cm CV PACS MV E' Tissue Velocity Lateral 6 cm/s CV PACS MV E' Tissue Velocity Septal 6 cm/s CV PACS LVOT Area 4.5 cm2 CV PACS LVOT Stroke Volume 116 mL CV PACS MR PISA Nyquist Marvin 40 cm/s CV PACS PISA MR Radius 0.75 cm CV PACS MV Mean Gradient 6 mmHg CV PACS MR VTI 157.0 cm CV PACS MV VTI 39.3 cm CV PACS MR PISA Max Velocity 0.1 m/s CV PACS MR Peak Gradient 121 mmHg CV PACS Mitral Valve Max Velocity 1.7 m/s CV PACS MV Peak Gradient 11 mmHg CV PACS E Wave Deceleration Time 439(A) 119 - 242 ms CV PACS MV Peak A Marvin 1.60 m/s CV PACS MV Peak E Marvin 1.50 m/s CV PACS PISA MR EROA 0.26 cm2 CV PACS MV Area Continuity Equation 3.0 cm2 CV PACS PISA Regurgitant Volume 41 mL CV PACS PV Acceleration Time 88 ms CV PACS PV Acceleration Time 88 ms CV PACS RV Diastolic Basal Dimension 3.4 2.5 - 4.1 cm CV PACS RV S' 12 cm/s CV PACS E/E' Ratio Septal 25 CV PACS E/E' Ratio Averaged 25 CV PACS Relative Wall Thickness ratio 0.39 0.22 - 0.42 CV PACS LV Mass 2D 103 66 - 150 g CV PACS MV VTI:LVOT VTI ratio 1.5 CV PACS LVOT flow 407 mL/s CV PACS E/A Ratio 0.9 0.8 - 2.0 CV PACS E/E' Ratio Lateral 25 CV PACS BSA 2.13 m2 CV PACS LA Volume Index (BP) 28 mL/m2 CV PACS LVIDD Index 2.09 cm/m2 CV PACS LV Mass Index 2D 51 44 - 88 g/m2 CV PACS LVOT Stroke Index 0 mL/m2 CV PACS RA 2D Volume Index 9(A) 15 - 27 mL/m2 CV PACS Ascending Aorta Index 1.50 cm/m2 CV PACS RV Free Wall Peak S' 12 cm/s CV PACS RA Major [place]isco[place] 4.1 cm CV PACS RA Major [place] Index 2.0(A) 2.2 - 2.8 cm/m2 CV PACS MV PHT 127 ms CV PACS MV Regurgitant Volume 41 mL CV PACS Inferior Vena Cava Diameter At Inspiration 0.6 cm CV PACS IVC Inspiration Index 0.29 cm/m2 CV PACS Inferior Vena Cava Diameter At Expiration 1.9 cm CV PACS IVC Expiration Index 0.92 cm/m2 CV PACS Mitral Reguritant Flow 12 CV PACS Anatomical Region Laterality Modality Ultrasound Narrative 03/22/2025 2:37 PM EDT Left ventricle cavity size is normal. Normal left ventricular wall thickness. Normal left ventricular regional wall motion. Left ventricular systolic function is in the normal range with an ejection fraction of 60-65%. Right ventricle cavity is normal. Right ventricular systolic function is normal. Mitral valve is rheumatic in appearance with mild to moderate leaflet tip thickening and doming of the anterior mitral valve leaflet. There is mild annular calcification and no calcification of the subvalvular apparatus. There is likely moderate mitral stenosis-see measurements below. There is mild to moderate mitral regurgitation. There is moderate aortic regurgitation and no aortic stenosis. Left Ventricle Left ventricle cavity size is normal. Wall thickness is normal. Systolic function is normal with an ejection fraction of 60-65%. There are no regional LV wall motion abnormalities. Indeterminate diastolic function. Left atrial pressure is inconclusive. Right Ventricle Right ventricle cavity appears normal. Systolic function is normal. Left Atrium Left atrium cavity size is normal. Right Atrium Right atrium cavity is small. IVC/SVC Inferior vena cava structure is normal. RA pressures is estimated to be 3 mmHg (IVC diameter <21 mm and decreases >50% during inspiration). Mitral Valve The valve is rheumatic in appearance. There is doming of the anterior mitral valve leaflet. Guerrero Score calculation: Calcification-1; Leaflet mobility-2; Subvalvular thickening-1; Valve thickening-2; . There is mild annular calcification. There is mild to moderate regurgitation with a centrally directed jet. Effective regurgitant orifice area by Pisa method is 0.26 cm . Regurgitant volume is 41 mL per beat. There is moderate stenosis. Tricuspid Valve Tricuspid valve structure is normal. Tricuspid regurgitation is inadequate for estimation of right ventricular systolic pressure. There is no significant tricuspid valve stenosis. Cannot assess RVSP. Aortic Valve The aortic valve is trileaflet. The leaflets are not thickened and exhibit normal excursion. There is moderate regurgitation. There is no evidence of aortic valve stenosis. Pulmonic Valve The pulmonic valve was not well visualized. No significant pulmonic valve regurgitation. No significant pulmonary valve stenosis noted. Ascending Aorta The aorta appears normal in size. Pericardium Pericardium appears normal. There is no pericardial effusion. Study Details Overall the study quality was adequate. Jeyson Masterson NP CV ECHO PROCEDURES Final Result from Last 3 Months [facility] Care Teams Field Artillery Operations Man Relationship Specialty Start Date End Date Tami Srivastava MD PCP - General Internal Medicine 09/11/24
== END ==
LOC: HO.SL 15:35
PROVIDERS: PCP Internal Medicine; Visit Provider Psychiatry & Neurology Neurology
DX: G47.33 Obstructive sleep apnea (adult) (pediatric) (principal)
CPT/HCPCS: 95806

== ENCOUNTER → 2025-04-27 15:45 | Outpatient (BNV) | payer OTHER, SELFPAY | PROVIDERS: PCP Internal Medicine; Visit Provider Psychiatry & Neurology Neurology | DX: G47.33 Obstructive sleep apnea (adult) (pediatric) (principal) | CPT/HCPCS: 95806 ==

== ENCOUNTER 2025-05-09 07:52 | Outpatient (REF) | payer OTHER, SELFPAY ==
--- NOTE | ~2025-05-09 | US_ITS ---
CLINICAL HISTORY: I71.40 - Abdominal aortic aneurysm, without rupture, unspecified US of abdominal aorta Comparison: US/SR - US ABDOMEN ANEURYSM SCREENING - 05/18/24 08:34 EST Findings: Atherosclerotic changes of aortoiliac arteries, fusiform aneurysmal dilatation of distal aorta noted. Aorta diameter proximal 2.3 x 2.1 cm. Aorta diameter mid 2.0 x 2.0 cm. Aorta diameter distal 3.7 x 3.3 cm contains mural thrombus with opacified aneurysmal lumen 2.7 x 2.4 cm, previously the aneurysm measures 3.6 x 3.8 cm with opacified lumen 2.4 x 2.8 cm. Right common iliac artery maximum diameter 1.2 x 1.2 cm. Left common iliac artery maximum diameter 1.1 x 1.1 cm. Impression: Slightly smaller distal abdominal aorta aneurysm with mural thrombus, as detailed above. This document has been electronically signed by: Ludy Pate MD on 05/09/2025 12:08:59
--- OUTSIDE RECORDS SUMMARY | 2025-05-09 07:54 | XMS_ITS | Clinical Summary ---
Author Organization Patient Business Ser [facility] [place] Address [address] [place] [address] Care Team Providers Care Senior Qualitative Researcher Name Role Phone Tami Srivastava MD Primary Care Provider [phone] Allergies Active Allergy Reactions Criticality Noted Date [...] Diagnosed Date Coronary artery disease invo lving [place] coronary artery of [place] heart 11/13/2024 Assessment & Plan (11/13/2024 4:04 PM EDT): Status post ST elevation CT with PCI to the proximal circumflex and [...] Type Department Care Team Description 03/22/2025 Telephone [facility] Cardiology [facility] [address] [place] [address] Marjorie Hess MD 03/22/2025 Telephone [facility] Cardiology [facility] - [address] [place] [address] Jeyson Masterson NP 03/05/2025 8:00 AM EDT Ancillary Procedure [facility] - [address] [place] [address] Hypertension, unspecified type from Last 3 Months Immunizations Immunization Administration Dates Next Due Vital Access SARS-CoV-2 COVID-19, mRNA, LNP-S, preservative free 06/12/2020 [...] (CMS/HCC V24) DX:AAA (abdominal aortic ane urysm) ([facility]); COMMENT: 3.2 cm Family History Medical History [...] Daughter Alive A&W Father rheumatoid arth ritis, CT age 56 Mother HTN, DMII, Gall bladder [...] (03/05/2025 8:55 AM EDT) Left Atrium Minor [place] 5.8 cm CV PACS Left Atrium Major [place] 5.9 cm CV PACS LA Area Sys [...] Diameter 2.4 cm CV PACS LVOT Mean Amrvin 0.9 m/s CV PACS LVOT Mean Grad [...] S' 12 cm/s CV PACS RA Major [place] 4.1 cm CV PACS RA Major [place] Index 2.0(A) 2.2 - 2.8 cm/m2 CV [...] Final Result [facility] Last 3 Mon[facility] Care Teams Senior Qualitative Researcher Relationship Specialty Start Date End Date Tami Srivastava MD PCP - General Internal Medicine 09/11/24
--- OUTSIDE RECORDS SUMMARY | 2025-05-09 07:54 | XMS_ITS | Clinical Summary ---
Author Organization [facility] Prior to 10/21/24 Address [address] [place] [address] Care Team Providers Care Supervisor Assembling Name Role Phone Tami Srivastava MD Primary Care Provider Allergies Active Allergy Reactions Criticality Noted Date [...] skin. 0 Active ergocalciferol (VITAMIN D2) capsule 07054 units Take 50,000 Units by mouth once a week. 0 Active Aspirin Buf,[id number] , 81 MG TABS Take 1 tablet [...] ATSesar NUNEZ [address] [place] [address] Daryn-Rubio ,Elin Personal/Family Self [address] [place] [id number] [employer] [facility] Corporate Other 11/17/1979 MIRIAM NUNEZ [address] Care Teams Supervisor Assembling Relationship Specialty Start Date End Date Tami Srivastava MD PCP - General Internal Medicine 12/24/20
--- OUTSIDE RECORDS SUMMARY | 2025-05-09 07:54 | XMS_ITS | Clinical Summary ---
Author Organization [facility] Address [address] [place] [id number] Care Team Providers Care Metal Riveter Name Role Phone Tami Srivastava MD Primary Care Provider [phone] Allergies Active Allergy Reactions Criticality Noted Date [...] Inactivated Comments 01/09/2020 12:05 PM Care Teams Metal Riveter Relationship Specialty Start Date End Date Tami Srivastava MD [address] [place] [id number] PCP - General Primary Care-Scan 01/02/20
== END 2025-05-09 07:53 | disposition home or self-care (01) ==
LOC: HO.US 07:52
PROVIDERS: PCP Internal Medicine; Visit Provider Internal Medicine
DX: I71.40 Abdominal aortic aneurysm, without rupture, unspecified (principal)
CPT/HCPCS: 76706

== ENCOUNTER → 2025-05-09 07:53 | Outpatient (BNV) | payer OTHER, SELFPAY | PROVIDERS: PCP Internal Medicine; Visit Provider Radiology Diagnostic Radiology | DX: I71.40 Abdominal aortic aneurysm, without rupture, unspecified (principal) | CPT/HCPCS: 76706 ==